=== PATIENT | male | born 1960 | race Caucasian/White ===

== ENCOUNTER 2020-06-16 11:32 | Inpatient (IN) | payer MEDICARE, MEDICAID, SELFPAY ==
[2020-06-16] VITALS (40 sets, daily range): BP systolic 113–148; BP diastolic 59–85; PULSE 89–110; RESP 14–31; TEMP 36.4–37.1; O2SAT 89–98; BMI 39.0
--- NOTE | ~2020-06-16 | XR_ITS ---
EXAMINATION: XR chest 2V DATE: 06/16/2020 12:30 INDICATION: Dyspnea. TECHNIQUE: Frontal and lateral views of the chest were obtained. COMPARISON: None. FINDINGS: The chest demonstrates clear lungs without pneumonia, pleural effusion, or pneumothorax. Th e heart size is normal. There are changes of posterior fusion procedure in thoracolumbar spine. There are chronic vertebral body fractures at thoracolumbar junction. IMPRESSION: 1. No acute cardiopulmonary disease. Reviewed, dictated and finalized at location B. AL INSURANCE COORDINATOR
--- NOTE | ~2020-06-16 | XR_ITS ---
EXAMINATION: BONE SURVEY/METASTATIC SURVEY DATE: 06/17/2020 INDICATION: Right tibial bone lesion TECHNIQUE: A skeletal survey was performed including AP views of the chest, abdomen and pelvis; AP an d lateral/lateral swimmers views of the cervical, thoracic and lumbar spine; lateral view of the skul l, and AP and lateral views of the appendicular skeleton excluding the hands and feet. COMPARISON: 06/16/2020 FINDINGS: Again seen is a mixed lytic and sclerotic lesion at the distal metadiaphyseal region of the right tib ia. No other suspicious bone lesions identified. External splinting of fracture at the proximal right tibial and fibular metaphyses. Chronic T12 compression fracture with posterior spinal fusion with bi lateral vertical tyler and pedicle screw fixation at T11-L1 associated T11-L1 laminectomies. Left above -the-knee amputation. Peripheral IV at the left antecubital fossa. Scattered degenerative skeletal ch anges most prominent at the bilateral wrists and carpi. Lungs are clear. IMPRESSION: 1. Mixed lytic/blastic lesion at the distal left tibial diaphysis which is concerning for malignancy. No other suspicious bone lesions identified. Would consider bone scan for more sensitive evaluation. Reviewed, dictated and finalized at location A. COIN DEALER IMPRESSION: 1. Mixed lytic/blastic lesion at the distal left tibial diaphysis which is conc erning for malignancy. No other suspicious bone lesions identified. Would consi simón bone scan for more sensitive evaluation.
--- NOTE | ~2020-06-16 | XR_ITS ---
EXAMINATION: XR chest 1V portable DATE: 06/19/2020 13:42 INDICATION: Shortness of breath TECHNIQUE: frontal view of the chest was obtained. COMPARISON: Chest radiograph and CT dated 06/16/2020 FINDINGS: The lungs are clear with no focal airspace opacities, pulmonary edema, pleural effusion or pneumothor ax. The cardiomediastinal silhouette is normal. Instrumented posterior spinal fusion at the thoracolu mbar junction. IMPRESSION: 1. No acute cardiopulmonary disease. Reviewed, dictated and finalized at location A. NICAL SPEC
--- NOTE | ~2020-06-16 | CT_ITS ---
EXAMINATION: CT tibia/fibula RT wo con DATE: 06/18/2020 12:59 INDICATION: Distal tibial bone lesion. TECHNIQUE: High resolution computed tomography (CT) of the mid to distal right tibia/fibular was perf ormed without intravenous contrast. Additional sagittal and coronal reconstructions were performed. A utomated exposure control and iterative reconstruction technique were employed. The dose-length produ ct was 528.69 mGy-cm. COMPARISON: Radiographs dated 06/16/2020 and 06/17/2020 FINDINGS: Eccentric sclerotic bone lesion along the lateral side of the metadiaphyseal region of the distal rig ht tibia which measures 3.1 cm proximal to distal and 1.9 x 1.2 cm in maximal orthogonal dimensions. The sclerosis appears to blend into the normal peripheral trabecular pattern underlying the cortex. S imilar to the normal trabecular pattern there are small regions of fat attenuation within multiple sm all lucent space within the region of sclerosis. There is subtle convex bulging of the cortex abuttin g the lesion but without appreciable endosteal scalloping. No periosteal reaction or extraosseous sof t tissue component. There is diffuse soft tissue edema in the visualized calf likely related to the p revious noted acute fractures of the proximal tibia and fibula which are not included within the fiel d of imaging. There are multiple foci of gas within the deep spaces of the anterior and deep posterio r compartments of the calf. No loculated fluid collections to suggest hematoma or abscess. IMPRESSION: 1. 3.1 x 1.9 x 1.2 cm indolent appearing sclerotic lesion with cortical contour suggesting chronic re modeling and without aggressive features such as endosteal scalloping, periosteal reaction or evident soft tissue component. Differential would include most likely either chronic nonossifying fibroma, f ibrous dysplasia or less likely enchondroma. There is a history of prior malignancy would consider me tastatic disease however this would be unlikely to result in the cortical remodeling. Line 2. Soft tissue edema throughout the calf with small amount of gas in the musculature of the anterior and deep posterior compartments which is likely related to the more proximal nonvisualized fractures. In the appropriate clinical setting, differential however would also include necrotizing fasciitis w hich is a clinical diagnosis. Dr. Pearson discussed these findings with Dr. Malloy at 2:20 PM. Reviewed, dictated and finalized at location A. SAW OPERATOR IMPRESSION: 1. 3.1 x 1.9 x 1.2 cm indolent appearing sclerotic lesion with cortical contour suggesting chronic remodeling and without aggressive features such as endostea l scalloping, periosteal reaction or evident soft tissue component. Differentia l would include most likely either chronic nonossifying fibroma, fibrous dyspla darwin or less likely enchondroma. There is a history of prior malignancy would co nsider metastatic disease however this would be unlikely to result in the corti ceasar remodeling. Line 2. Soft tissue edema throughout the calf with small amount of gas in the muscul ature of the anterior and deep posterior compartments which is likely related t o the more proximal nonvisualized fractures. In the appropriate clinical settin g, differential however would also include necrotizing fasciitis which is a cli nical diagnosis. Dr. Pearson discussed these findings with Dr. Malloy at 2:20 PM.
--- NOTE | ~2020-06-16 | US_ITS ---
EXAMINATION: US right upper quadrant DATE: 06/18/2020 16:56 INDICATION: Elevated liver function tests TECHNIQUE: Multiple grayscale and Doppler ultrasound images of the abdomen were obtained. COMPARISON: None available FINDINGS: Bowel gas obscures visualization of the pancreas. The liver is normal with normal echogenic ity and echotexture. No surface nodularity. Normal hepatopetal flow in the main portal vein. The gall bladder is mostly decompressed. The wall bladder wall thickness measures up to 5 mm. No pericholecyst ic fluid or gallstones are identified. The mildly dilated common bile duct measures 8 mm. There was n o sonographic De Paz sign. IMPRESSION: 1. Mildly dilated common bile duct. 2. Apparent gallbladder wall thickening which may be due to gallbladder decompression. Reviewed, dictated and finalized at location A. BOSS IMPRESSION: 1. Mildly dilated common bile duct. 2. Apparent gallbladder wall thickening which may be due to gallbladder decompr ession.
--- NOTE | ~2020-06-16 | XR_ITS ---
EXAMINATION: XR chest 1V portable DATE: 06/23/2020 06:14 INDICATION: Respiratory failure. TECHNIQUE: A single frontal view of the chest was obtained. COMPARISON: Chest single view 06/21/2020, CT abdomen and pelvis 06/20/2020 FINDINGS: There are mild airspace opacities in the lower lung zones and perihilar regions. No pleural effusion or pneumothorax. The heart size is normal. There are changes of posterior fusion procedure in lumbar spine. IMPRESSION: 1. Mild airspace opacities in the lower lung zones and perihilar regions with worsening at right lung base, consistent with atelectasis versus pneumonia. Reviewed, dictated and finalized at location A. ENER AND BLENDER IMPRESSION: 1. Mild airspace opacities in the lower lung zones and perihilar regions with w orsening at right lung base, consistent with atelectasis versus pneumonia.
--- NOTE | ~2020-06-16 | US_ITS ---
EXAMINATION: US venous doppler LE RT DATE: 06/16/2020 13:14 INDICATION: Right lower limb edema. TECHNIQUE: Grayscale ultrasound images without and with compression and Doppler ultrasound images of the right lower extremity veins were obtained. COMPARISON: None. FINDINGS: The visualized portions of right common femoral vein, profunda (deep) femoral vein, femoral vein, pop liteal vein, posterior tibial veins, and greater saphenous vein outflow are patent. IMPRESSION: 1. No deep venous thrombosis. Reviewed, dictated and finalized at location B. ESTRIAL ECOLOGIST
--- NOTE | ~2020-06-16 | CT_ITS ---
EXAMINATION: CT abdomen pelvis wo/w con EXAM DATE: 06/20/2020 15:13 INDICATION: Fever, elevated liver function tests. TECHNIQUE: Spiral CT of the abdomen without contrast followed by both abdomen and pelvis with 100 cc intravenous Omnipaque 350. Both arterial and venous phases obtained. Axial, coronal and sagittal imag es were reviewed. The dose-length product (DLP) for this examination was 3608.56 mGy-cm. The exposu re was tailored according to patient size (auto mA exposure control), and iterative reconstruction (A SIR) was used as additional dose reduction technique. There is no prior study for comparison. FINDINGS: There is fusiform abdominal aortic aneurysm measuring up to 4.1 cm. Mild aneurysmal dilatio n of this extending into the right common iliac artery at 2.1 cm. There is splenomegaly, with the spleen measuring 20 cm in craniocaudal dimension. There is nodular li mike contour consistent with cirrhosis. Nonspecific inflammation in the mesentery and along the inferi or margin of the liver. There is trace perihepatic ascites. Gallbladder is unremarkable. No biliary obstruction. Portal and splenic veins are patent. Kidneys enhance symmetrically. There is no hydronephrosis. The re is no nephrolithiasis or hydronephrosis. The prostate is unremarkable. There is a Allen catheter . There is both gas and a stone within the bladder. There is evidence of diffuse bladder wall thicken ing, acute or chronic cystitis. Correlation could be made with urinalysis. There is no retroperitone al or pelvic lymphadenopathy. Small left inguinal fat-containing hernia. The appendix is normal. The stomach and small bowel are unremarkable. There is expected amount of c olonic stool. No free intraperitoneal gas. The heart is normal in size. There are no pericardial or pleural effusions. The lung bases are unremarkable. There are no osteoblastic or osteolytic les ions identified. There is thoracolumbar fusion hardware. IMPRESSION: 1. Cirrhosis, portal hypertension and splenomegaly. 2. Trace perihepatic ascites and some nonspecific right sided abdominal, mesenteric inflammation. 3. Fusiform abdominal aortic 4.1 cm aneurysm. 4. Allen catheter, bladder stone, gas within the bladder. Correlate with urinalysis. 5. Small left inguinal fat-containing hernia. Reviewed, dictated and finalized at location A. ING CHECKER IMPRESSION: 1. Cirrhosis, portal hypertension and splenomegaly. 2. Trace perihepatic ascites and some nonspecific right sided abdominal, mesen teric inflammation. 3. Fusiform abdominal aortic 4.1 cm aneurysm. 4. Allen catheter, bladder stone, gas within the bladder. Correlate with urina lysis. 5. Small left inguinal fat-containing hernia.
--- NOTE | ~2020-06-16 | XR_ITS ---
EXAMINATION: XR chest 1V portable DATE: 06/25/2020 06:29 INDICATION: Volume overload. TECHNIQUE: A single frontal view of the chest was obtained. COMPARISON: Chest single view 06/23/2020, CT abdomen and pelvis 06/20/2020, chest CT 06/16/2020 FINDINGS: Sensitivity is decreased by obesity. There is mild atelectasis in the right mid and lower l tarah zones and left lower lung zone. No pleural effusion or pneumothorax. The heart size is normal. Th ere are changes of posterior fusion procedure in lumbar spine. IMPRESSION: 1. Mild atelectasis in right mid and lower lung zones and left lower lung zone. Reviewed, dictated and finalized at location A. ISHING MACHINE OPERATOR
--- NOTE | ~2020-06-16 | XR_ITS ---
EXAMINATION: XR hip BI 2V w AP pelvis DATE: 06/16/2020 12:50 INDICATION: Hip pain. TECHNIQUE: An anteroposterior view of the pelvis and 2 views of each hip were obtained. COMPARISON: None. FINDINGS: Bone alignment is normal. No fracture. There is mild osteoarthritis of the hips. IMPRESSION: 1. Mild osteoarthritis of the hips. Reviewed, dictated and finalized at location B. COMBER
--- NOTE | ~2020-06-16 | CT_ITS ---
EXAMINATION: CTA chest PE protocol DATE: 06/16/2020 14:57 INDICATION: Dyspnea. Long bone fracture. TECHNIQUE: Computed tomography angiography (CTA) of the chest was performed with 200 mL Omnipaque-350 intravenous contrast timed to evaluate the pulmonary arteries. Coronal maximum intensity projection 3D-reconstructions were created by the technologist. Automated exposure control and iterative reconst ruction technique were employed. Exam dose: 1993.22 mGy-cm total exam DLP. COMPARISON: 06/16/2020 AP and lateral chest FINDINGS: Despite reinjection, there is limited contrast enhancement of the pulmonary arteries. No ce ntral pulmonary embolism is noted at the peripheral pulmonary arteries are not optimally evaluated. No thoracic aortic aneurysm or dissection. Coronary artery calcification. No pericardial or pleural effusion. No hilar or mediastinal mass lesion or lymphadenopathy. There is mild atelectasis in the dependent posterior segment of the right upper lobe and lingula. No pulmonary consolidation or pulmonary mass lesion is noted otherwise. Plate and pedicle screws in the upper lumbar region, with considerable streak artifact. Small sliding hiatal hernia. IMPRESSION: Suboptimal contrast enhancement of the pulmonary arteries, limiting evaluation. No large central pulmonary embolus is identified. Reviewed, dictated and finalized at Location A. Reviewed, dictated and finalized at location A. DDED FILLER CIGAR MAKER MACHINE IMPRESSION: Suboptimal contrast enhancement of the pulmonary arteries, limitin g evaluation. No large central pulmonary embolus is identified.
--- NOTE | ~2020-06-16 | XR_ITS ---
EXAMINATION: XR knee RT 3V DATE: 06/28/2020 08:36 INDICATION: Tibia fracture follow-up. TECHNIQUE: 3 views of right knee were obtained. COMPARISON: Right knee radiographs 06/16/2020, CT 06/27/20 FINDINGS: There is a comminuted, predominantly oblique fracture of tibial metaphysis. The main distal fracture fragment demonstrates 11 mm lateral displacement, impaction, and 3 mm anterior displacement . There is an oblique fracture of fibular neck. The distal fracture fragment demonstrates 14 mm media l displacement, impaction, and 11 degrees medial angulation. There is mild tricompartmental osteoarth ritis of right knee. There is a moderate-sized knee joint effusion. Again seen are foci of gas in the musculature of the jones. IMPRESSION: 1. Fractures of proximal tibial metaphysis and fibular neck. 2. Mild right knee osteoarthritis. 3. Moderate-sized right knee joint effusion. 4. Foci of soft tissue gas involving the musculature of the jones. Correlate clinically for necrotizin g fasciitis. Reviewed, dictated and finalized at location A. TRICAL APPLIANCE PREPARER IMPRESSION: 1. Fractures of proximal tibial metaphysis and fibular neck. 2. Mild right knee osteoarthritis. 3. Moderate-sized right knee joint effusion. 4. Foci of soft tissue gas involving the musculature of the jones. Correlate cli nically for necrotizing fasciitis.
--- NOTE | ~2020-06-16 | CT_ITS ---
EXAMINATION: CTA LE RT DATE: 06/27/2020 13:39 INDICATION: Arterial occlusive disease. TECHNIQUE: Computed tomographic angiography (CTA) of right lower extremity was performed with 150 mL Omnipaque-350 intravenous contrast. Automated exposure control and iterative reconstruction technique were employed. The dose-length product was 1661.13 mGy-cm. Maximum intensity projection 3D-reconstru ctions of the arteries were created by the technologist on a separate workstation. COMPARISON: CT abdomen and pelvis 06/20/2020 FINDINGS: ABDOMINAL AORTA AND ITS BRANCHES: There is a 4.0 cm fusiform aneurysm of infrarenal aorta. There is mild stenosis of celiac axis and gautam perior mesenteric artery. There is no significant stenosis of the renal arteries or inferior mesenter ic artery. PELVIC VASCULATURE: There is mild stenosis of right common and external and internal iliac arteries. There is mild stenos is of left common and internal iliac arteries. There is total occlusion of left internal iliac artery . RIGHT LOWER EXTREMITY VASCULATURE: There is moderate stenosis of right common femoral artery. There is no significant stenosis of the pr ofunda femoral artery. There is moderate stenosis of proximal and mid superficial femoral artery. The re is total occlusion of distal superficial femoral artery with reconstitution of flow in above-knee popliteal artery. There is no significant stenosis of below-knee popliteal artery or tibioperoneal tr unk. There is mild stenosis of the posterior tibial artery and peroneal artery. There is total occlus ion of proximal anterior tibial artery with reconstitution. LEFT LOWER EXTREMITY VASCULATURE: There is moderate stenosis of left common femoral artery. There are areas of moderate and severe sten osis of left superficial femoral artery. ADDITIONAL FINDINGS: There are bilateral pleural effusions. The liver demonstrates surface nodularity, consistent with cir rhosis. There is severe splenomegaly. The gallbladder is normal in size. Normal wall thickening is se en, likely secondary to chronic liver disease. There is a paraumbilical portacaval shunt. The pancrea s, adrenal glands, and right kidney are normal. There is a 9 mm cyst in left kidney. There are no dil ated loops of bowel. There is a 13 mm stone in the bladder. There is a Allen catheter in the bladder. There is a left inguinal hernia containing fat. There are no dilated loops of bowel. The appendix is normal. There is a moderate volume of ascites. Body wall edema is noted. There are changes of jewelry consultant ior fusion procedure in thoracolumbar spine. There is an oblique fracture of proximal tibial metaphys is. The distal fracture fragment demonstrates impaction and anteromedial displacement. There is an ob lique fracture of fibular neck. The distal fracture fragment demonstrates impaction and medial displa cement and posterior angulation. Again seen is a sclerotic lesion in distal tibial metadiaphysis, lik keely benign. There is edema of right lower limb. There is gas in the right jones musculature near the f racture. There is a hematoma at the myotendinous junction of the right gracilis muscle, consistent wi th partial tear (grade 2 strain). There is a moderate-sized right knee joint effusion. There is mild right knee osteoarthritis. IMPRESSION: 1. 4.0 cm fusiform aneurysm of infrarenal aorta. 2. Moderate stenosis of right common femoral artery. 3. Moderate stenosis of proximal and mid right superficial femoral artery. Total occlusion of distal right superficial femoral artery with reconstitution in above-knee popliteal artery. 4. Total occlusion of proximal right anterior tibial artery with reconstitution. 5. Moderate stenosis of left common femoral artery. Moderate and severe stenosis of left superficial femoral artery. 6. Cirrhosis of the liver with portal venous hypertension. 7. Moderate volume of ascites.
--- NOTE | ~2020-06-16 | XR_ITS ---
EXAMINATION: 1. XR knee RT min 4V 2. XR tibia fibula RT 2V DATE: 06/16/2020 12:50 INDICATION: Right knee pain. TECHNIQUE: 4 views of right knee and 2 views of right tibia and fibula were obtained. COMPARISON: None. FINDINGS: RIGHT KNEE: There is a comminuted, predominantly oblique fracture of proximal tibial metaphysis. The distal fracture fragment demonstrates 15 mm medial displacement and impaction. There is an oblique fr acture of neck of proximal fibula. The distal fracture fragment demonstrates 12 mm medial displacemen t and impaction. There is mild tricompartmental osteoarthritis of right knee. There is a moderate-siz ed knee joint effusion. RIGHT TIBIA-FIBULA: Again seen are fractures of proximal tibial metaphysis and fibular neck. There is a 3.4 cm sclerotic lesion in medial distal tibial metadiaphysis with outward bowing of the cortex. IMPRESSION: 1. Fractures of proximal tibial metaphysis and fibular neck. 2. 3.4 cm sclerotic lesion in distal tibial metadiaphysis, most likely a benign lesion such as a heal ed fracture or healed nonossifying fibroma. Metastatic disease cannot be excluded. 3. Mildly right knee osteoarthritis. 4. Moderate-sized knee joint effusion. Reviewed, dictated and finalized at location B. ORKER IMPRESSION: 1. Fractures of proximal tibial metaphysis and fibular neck. 2. 3.4 cm sclerotic lesion in distal tibial metadiaphysis, most likely a benign lesion such as a healed fracture or healed nonossifying fibroma. Metastatic di sease cannot be excluded. 3. Mildly right knee osteoarthritis. 4. Moderate-sized knee joint effusion.
--- NOTE | ~2020-06-16 | US_ITS ---
EXAMINATION: US arterial ankle brachial ind DATE: 06/17/2020 11:45 INDICATION: Peripheral arterial occlusive disease. Bilateral lower limb swelling. TECHNIQUE: Segmental pressures and plethysmographic and Doppler waveforms of the brachial and lower e xtremity arteries were obtained. COMPARISON: None. FINDINGS: Right and left brachial artery pressures of 123 mm Hg and 117 mm Hg, respectively, are concordant (no rmal difference <= 30 mmHg). The right ankle-brachial index (MOJGAN) is 0.50 (normal >= 0.9-1.0). The right dorsalis pedis artery is occluded with no dopplerable waveform. The right great toe-brachial index (TBI) is 0.41 (normal >= 0. 65). Left MOJGAN and TBI measurements unable to be obtained due to a left [id number] amputation. IMPRESSION: 1. Arterial occlusive disease to the right lower limb with moderate to severely decreased right MOJGAN b ased upon the right posterior tibial artery with occlusion/thrombosis of the right dorsalis pedis art omar. Reviewed, dictated and finalized at location A. CIATE DIRECTOR DATA & ANALYTICS IMPRESSION: 1. Arterial occlusive disease to the right lower limb with moderate to severely decreased right MOJGAN based upon the right posterior tibial artery with occlusio n/thrombosis of the right dorsalis pedis artery.
--- NOTE | ~2020-06-16 | XR_ITS ---
EXAMINATION: XR chest 1V portable DATE: 06/21/2020 13:09 INDICATION: Cough and hypoxia TECHNIQUE: frontal view of the chest was obtained. COMPARISON: Chest radiograph dated 06/19/2020 and chest radiograph and CT dated 06/16/2020 FINDINGS: Subtle oblique band of discoid atelectasis in the right midlung zone which on CT as in the upper lobe paralleling the major fissure. New opacities in the medial aspect of the bilateral lower lung zones. No pulmonary edema, pleural effusion or pneumothorax. The cardiomediastinal silhouette is within nor mal limits for AP technique. Partially visualized bilateral plate and pedicle screw fixation for lumb ar posterior spinal fusion. IMPRESSION: 1. New mild opacities at the medial aspect of the bilateral lung bases which could represent atelecta sis and/or pneumonia. 2. Unchanged discoid atelectasis/scarring in the right upper lobe. Reviewed, dictated and finalized at location B. UNTING TECHNICIAN IMPRESSION: 1. New mild opacities at the medial aspect of the bilateral lung bases which co uld represent atelectasis and/or pneumonia. 2. Unchanged discoid atelectasis/scarring in the right upper lobe.
--- NOTE | 2020-06-16 11:47 | ECG_ITS ---
Measurements Intervals [place] Rate: 96 P: 52 UT: 136 QRS: -54 QRSD: 113 T: -38 QT: 396 QTc: 501 Interpretive Statements SINUS RHYTHM VENTRICULAR PREMATURE COMPLEX LOW QRS VOLTAGE IN PRECORDIAL LEADS INCOMPLETE RIGHT BUNDLE BRANCH BLOCK LEFT ANTERIOR FASCICULAR BLOCK BORDERLINE ST-T WAVE ABNORMALITY- DIFFUSE LEADS BASELINE ARTIFACT- I, II, III, AVR ABNORMAL ECG Electronically Signed On 06-16-2020 11:56:40 INCOME TAX INVESTIGATOR by Fady Joseph D.O.
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
[2020-06-16 12:13] LABS: Basophils Percent Auto 0.4 % (0.2-1.2); Eosinophils Absolute Auto 0.1 K/mm3 (0-0.3); Eosinophils Percent Auto 1.1 % (0-4.4); Hematocrit 33.9 % (42.0-52.0); Hemoglobin 10.5 g/dL (14.0-18.0); Immature Granulocyte Absolute 0.02 K/mm3 (0.00-0.031); Immature Granulocyte Percent A 0.4 % (0-0.5); Immature Platelet Fraction Pct 5.6 % (0.9-11.2); Lymphocytes Absolute Auto 0.43 K/mm3 (0.9-3.2); Lymphocytes Percent Auto 9.7 % (18.3-44.2); Mean Corpuscular Hemoglobin 28.9 pg (26-34); Mean Corpuscular Volume 93.4 fl (80-100); Monocytes Absolute Auto 0.5 K/mm3 (0.1-0.6); Monocytes Percent Auto 10.6 % (2.6-8.5); Neutrophils Absolute Auto 3.5 K/mm3 (1.3-6.7); Neutrophils Percent Auto 77.8 % (45.5-73.1); Platelet Count Result 81 k/mm3 (150-375); Red Blood Count 3.63 M/mm3 (4.6-6.20); Red Cell Distribution Width 15.4 % (11.5-14.5); White Blood Count 4.5 K/mm3 (4.5-10.0)
[2020-06-16 12:23] LABS: Anion Gap 5 mmol/L (8-16); Blood Urea Nitrogen 8 mg/dL (9-20); Calcium 8.2 mg/dL (8.4-10.2); Carbon Dioxide 30 mmol/L (22-30); Chloride 99 mmol/L (98-107); Estimated CRCL calculation 155 ml/min; Estimated Glomerular Filt Rate > 60; Glucose 168 mg/dL (75-110); Potassium 4.1 mmol/L (3.4-5.0); Sodium 134 mmol/L (137-145)
[2020-06-16 12:41] LABS: NT Pro B Type Natriuretic Pept 288 PG/ML (5-100); Troponin I 0.755 ng/mL (0.000-0.034)
[2020-06-16 13:08] LABS: CRP 2.8 mg/dL (<1.0)
[2020-06-16 13:14] LABS: NT Pro B Type Natriuretic Pept 278 PG/ML (5-100)
[2020-06-16] MEDS: ALBUTEROL SULFATE NEB 2.5 MG/0.5 ML INH 5 MG INHALATION (13:30)
[2020-06-16] MEDS: IPRATROPIUM BR 0.02% INH SOLN 0.5 MG/2.5 ML VIAL 1 MG INHALATION (13:30)
--- NOTE | 2020-06-16 14:33 | PC.NURSE ---
Asked pt for urine sample, pt stated he was unable to go at this time
[2020-06-16 16:48] LABS: Add Urine Microscopic? YES; Appearance Urine Clear (Clear); Bilirubin Urine Negative (Negative); Blood Urine Negative (Negative); Color Urine Yellow (Yellow); Glucose Urine UA Negative (Negative); Ketones Urine Negative (Negative); Leukocyte Esterase Ur 1+ LEU/UL (Negative); Nitrate Urine Negative (Negative); Protein Urine 1+ mg/dL (Negative); Squamous Epithelial Cell Urine Occasional /hpf (Few); WBC Urine 31-50 /hpf
[2020-06-16 16:55] LABS: Specific Grav Ur > 1.060 (1.001-1.035)
--- NOTE | 2020-06-16 17:04 | PCCCNOTE ---
Spoke with pt about discharge plan. Pt states he lives at home alone and takes care of all his ADL's and housekeeping himself. If he has surgery and gets a long leg cast he states he will need to go somewhere for rehab. Explained he is currently going to be in observation. Gave pt list of SNF's in area. He has Medicaid 2nd and if does not have a 3 night stay he can go Medicaid. Pt drives self to appointments, uses transfer board and does have wheelchair but not with elevating legs.
--- NOTE | 2020-06-16 18:25 | PC.NURSE ---
Meal tray ordered for patient
[2020-06-16 19:04] LABS: Troponin I 0.975 ng/mL (0.000-0.034)
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
--- NOTE | 2020-06-16 22:03 | ADMGEN ---
This patient, Jose Rojas, was admitted to IMU Room 206-02. Patient/family oriented to hospital policies and general routines including ID bracelet, bed and alarms, visiting hours, pain management, procedures, bathroom and other care routines, personal items, smoking policy, room service/diet, and visiting hours. Information on how to activate the Rapid Response Team has been discussed. Patient/Family are encouraged to report perceived risks to care and to ask questions if they do not understand what they are told or what they should do.
[2020-06-16 22:11] LABS: Troponin I 0.846 ng/mL (0.000-0.034)
--- NOTE | 2020-06-16 22:11 | PC.NURSE ---
Family called and notified of patients transfer to floor
[2020-06-17] VITALS (21 sets, daily range): BP systolic 118–136; BP diastolic 40–60; PULSE 80–115; RESP 18–22; TEMP 36.3–37.2; O2SAT 89–95
--- NOTE | 2020-06-17 | ECHO_ITS ---
Patient Info Name: Jose Rojas Age: 59 years : 1960 Gender: Male Ht: 67 in Wt: 242 lbs BSA: 2.33 m2 HR: 112 bpm BP: 128 / 60 mmHg Technical Quality: Poor Exam Date: 06/17/2020 2:23 PM Exam Location: [facility] Pul[facility] Patient Status: Inpatient Admit Date: 06/17/2020 Staff Ordering Physician: Fang Webb MD Cardroom Drawing Runner: Hilary Baer RDCS Attending Provider: Maynor Tello MD Referring Physician: Jon PEREZ; Exam Type: CA echo dop color flow w con Study Info Indications - elevated trop Complete two-dimensional, color flow and Doppler transthoracic echocardiogram is performed with contrast to opacify the left ventricle and to improve the deliniation of the left ventricle endocardial borders. Contrast/Agitated Saline Contrast/Ag. Saline: Definity Amount: 2.00 ml Administered By: Gerardo Cannon, RN IV Access Condition: patent with no signs of infiltration Reason for Poor Study: poor echocardiographic windows Summary 1. Technically suboptimal study due to poor sonographic images. 2. Left ventricular chamber dimension is mildly enlarged. 3. Definity contrast administered improved wall motion interpretation. 4. Left ventricular systolic function is normal, estimated at 55-60%. 5. The left ventricular diastolic function is grade II diastolic dysfunction. 6. E/e' 12 is mildly elevated. Left Ventricle Definity contrast administered improved wall motion interpretation. Technically suboptimal study due to poor sonographic images. E/e' 12 is mildly elevated. Left ventricular chamber dimension is mildly enlarged. Left ventricular systolic function is normal, estimated at 55-60%. The left ventricular diastolic function is grade II diastolic dysfunction. Right Ventricle Right ventricular chamber dimension is not well visualized. Left Atria Left atrial chamber dimension is normal. Right Atria Right atrial chamber dimension is not well visualized. Aortic Valve There is no aortic valve stenosis based on valve area and gradients. Cannot determine number of aortic valve leaflets. The aortic valve is not well visualized. There is no aortic valve regurgitation. Pulmonic Valve The pulmonic valve is not well visualized. Mitral Valve There is no mitral valve stenosis. There is no mitral valve regurgitation. Tricuspid Valve The tricuspid valve leaflets are not well visualized. Pericardium/Pleural There is no pericardial effusion. Inferior Vena Cava Inferior vena cava is not well visualized. Aorta The aortic root size at the sinus of Valsalva is not well visualized. Left Ventricular Outflow Tract Name Value Normal LVOT 2D LVOT Diameter 2.04 cm LVOT Doppler LVOT Peak Gradient 8 mmHg LVOT Mean Gradient 5 mmHg LVOT VTI 23.99 cm LVOT VTI/AV VTI Ratio 0.92 LVOT Stroke Volume 78.48 ml LVOT CO 7.93 l/min LVOT CI
--- NOTE | 2020-06-17 05:16 | PCRCNOTE ---
Window of time for administration has passed. See next scheduled administration.
--- NOTE | 2020-06-17 06:52 | PCRCNOTE ---
Window of time for administration has passed. See next scheduled administration.
[2020-06-17] MEDS: NICOTINE (*PBKC) 14 MG PATCH 1 PATCH TRANSDERM (08:38)
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
--- NOTE | 2020-06-17 09:22 | PCOTNOTE ---
OT evaluation held at this time, will follow for ortho consult and recommendation.
[2020-06-17] MEDS: ALBUTEROL SULFATE NEB 2.5 MG/0.5 ML INH 5 MG INHALATION ×3 (10:34→20:22)
[2020-06-17] MEDS: IPRATROPIUM BR 0.02% INH SOLN 0.5 MG/2.5 ML VIAL INHALATION ×3 (10:34→20:22)
--- NOTE | 2020-06-17 10:52 | PCOTNOTE ---
attempted OT evaluation. Patient out for testing. will continue to attempt.
--- NOTE | 2020-06-17 10:55 | PCPTNOTE ---
Attempted PT evaluation, patient in ultrasound this AM, will attempt this afternoon.
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
[2020-06-17 12:34] LABS: Glucose Point of Care 130 (65-105)
[2020-06-17 17:29] LABS: Glucose Point of Care 125 (65-105)
[2020-06-17 19:11] LABS: Influenza Control Positive
[2020-06-17 20:56] LABS: Glucose Point of Care 168 (65-105)
[2020-06-17] MEDS: BISACODYL 10 MG SUPPOSITORY RECTAL (21:06)
[2020-06-17] MEDS: CYCLOBENZAPRINE HCL 5 MG TABLET PO (22:14)
[2020-06-17] MEDS: ACETAMINOPHEN 325 MG TABLET 650 MG PO (22:15)
[2020-06-18] VITALS (24 sets, daily range): BP systolic 101–134; BP diastolic 35–93; PULSE 99–113; RESP 18–22; TEMP 36.3–37.2; O2SAT 91–97
[2020-06-18] MEDS: ALBUTEROL SULFATE NEB 2.5 MG/0.5 ML INH 5 MG INHALATION ×4 (03:40→21:52)
[2020-06-18] MEDS: IPRATROPIUM BR 0.02% INH SOLN 0.5 MG/2.5 ML VIAL INHALATION ×4 (03:40→21:53)
[2020-06-18 05:04] LABS: Hemoglobin A1C 5.6 % (<5.7)
[2020-06-18 05:42] LABS: Prostate Specific Antigen 0.3 ng/mL (< OR = 4.0)
[2020-06-18 06:17] LABS: Folic Acid 7.7 ng/mL (2.76->20)
[2020-06-18 08:22] LABS: Glucose Point of Care 153 (65-105)
[2020-06-18] MEDS: NICOTINE (*PBKC) 14 MG PATCH 1 PATCH TRANSDERM (08:46)
[2020-06-18 09:11] LABS: Basophils Percent Auto 0.4 % (0.2-1.2); Eosinophils Absolute Auto 0.1 K/mm3 (0-0.3); Eosinophils Percent Auto 0.8 % (0-4.4); Hematocrit 32.4 % (42.0-52.0); Hemoglobin 10.1 g/dL (14.0-18.0); Immature Granulocyte Absolute 0.06 K/mm3 (0.00-0.031); Immature Granulocyte Percent A 0.8 % (0-0.5); Immature Platelet Fraction Pct 6.9 % (0.9-11.2); Lymphocytes Absolute Auto 0.55 K/mm3 (0.9-3.2); Lymphocytes Percent Auto 7.2 % (18.3-44.2); Mean Corpuscular HGB Conc 31.2 g/dl (32-36); Mean Corpuscular Hemoglobin 29.4 pg (26-34); Mean Corpuscular Volume 94.5 fl (80-100); Mean Platelet Volume 11.2 fl (7.4-10.4); Monocytes Absolute Auto 0.8 K/mm3 (0.1-0.6); Monocytes Percent Auto 10.7 % (2.6-8.5); Neutrophils Absolute Auto 6.2 K/mm3 (1.3-6.7); Neutrophils Percent Auto 80.1 % (45.5-73.1); Platelet Count Result 86 k/mm3 (150-375); Red Blood Count 3.43 M/mm3 (4.6-6.20); White Blood Count 7.7 K/mm3 (4.5-10.0)
[2020-06-18 09:25] LABS: Alanine Aminotransferase 65 U/L (4-50); Albumin Level 3.1 g/dL (3.5-5.1); Alkaline Phosphatase 135 U/L (38-126); Anion Gap 0 mmol/L (8-16); Aspartate Amino Transferase 267 U/L (17-59); Bilirubin,Total 3.5 mg/dL (0.2-1.3); Blood Urea Nitrogen 10 mg/dL (9-20); Calcium 8.3 mg/dL (8.4-10.2); Carbon Dioxide 37 mmol/L (22-30); Chloride 98 mmol/L (98-107); Estimated CRCL calculation 134 ml/min; Estimated Glomerular Filt Rate > 60; Glucose 142 mg/dL (75-110); Potassium 4.4 mmol/L (3.4-5.0); Sodium 135 mmol/L (137-145)
--- NOTE | 2020-06-18 09:41 | PM.PNORT ---
Progress Note: A&P Assessment and Plan (1) Fracture, tibia and fibula, proximal: Qualifiers: Encounter type: subsequent encounter Fracture type: closed Laterality: right Fracture healing: with routine healing Qualified Code(s): S82.101D - Unspecified fracture of upper end of right tibia, subsequent encounter for closed fracture with routine healing; S82.831D - Other fracture of upper and lower end of right fibula, subsequent encounter for closed fracture with routine healing Code(s): S82.109A - Unspecified fracture of upper end of unspecified tibia, initial encounter for closed fracture; S82.839A - Other fracture of upper and lower end of unspecified fibula, initial encounter for closed fracture Status: Acute Assessment and Plan: Continue knee immobilizer. Swelling slightly improved. Patient appears to be comfortable. Continue to monitor. If loss of alignment may require surgical treatment however high risk of complication given medical comorbidities including arterial disease. (2) Peripheral arterial disease: Code(s): I73.9 - Peripheral vascular disease, unspecified Status: Acute Assessment and Plan: Moderate to severe decreased arterial blood flow right leg on MOJGAN and TBI. Unable to palpate pulses. Unaware if patient is followed by vascular surgery. (3) Bone lesion: Code(s): M89.9 - Disorder of bone, unspecified Status: Acute Assessment and Plan: Distal tibial metadiaphyseal lesion. Questionable benign versus carcinogenic. will obtain CT scan to better evaluate. Subjective Subjective Date/Time Seen: 06/18/20 09:00 Patient resting comfortably. No new complaints. Exam Const: General: healthy appearing; No in distress or confusion Orientation/consciousness: oriented to person, oriented to place, oriented to time and No confusion HENMT: Head: normal to inspection, normocephalic and atraumatic Eyes: Conjunctivae: conjunctivae normal Sclera: sclerae normal Neck: Neck: supple and nontender Resp: Effort & Inspection: normal respiratory effort and no audible wheezes Cardio: Rate: regular rate Rhythm: regular rhythm Skin: General skin exam: no rashes or lesions noted Neuro: General: oriented to person, oriented to place, oriented to time and No confusion Extrem: Right upper extremity: normal to inspection Left upper extremity: normal to inspection Right lower extremity: edema Details: pitting and 3+, hip/thigh Details: no tenderness, knee Details: swelling Location: of the proximal fibula (Moderate) and of the proximal tibia Details: along the midline (Moderate) and abnormal ROM Details: with range as follows (No active motion knee, ankle, foot or toes); no tenderness and foot Details: edema Location: of the dorsal foot (Moderate), vascular exam Details: abnormal capillary refill Location: of all toes; dorsalis pedis pulse absent and posterior tibial pulse absent and motor-sensory exam Details: light-touch abnormal Location: in all toes; no tenderness Left lower extremity: hip/thigh (Above knee amputation with well-healed incision. No erythema. Muscle soft) Details: no tenderness Psych: Affect: normal affect Objective Data Vital Signs Vital Signs: Vital Signs - 24 hr 06/17/20 10:00 06/17/20 10:30 06/17/20 10:40 Temperature Pulse Rate 108 H 88 89 Respiratory Rate 18 18 Blood Pressure Pulse Oximetry 06/17/20 10:41 06/17/20 12:00 06/17/20 14:00 Temperature 98.5 F Pulse Rate 103 H 114 H Respiratory Rate 18 Blood Pressure 118/42 L Pulse Oximetry 95 93 06/17/20 14:07 06/17/20 14:15 06/17/20 16:00 Temperature 98.3 F Pulse Rate 112 H 105 H 115 H Respiratory Rate 18 18 18 Blood Pressure 136/49 L Pulse Oximetry 94 06/17/20 18:45 06/17/20 19:34 06/17/20 20:00 Temperature 98.9 F Pulse Rate 112 H 114 H 107 H Respiratory Rate 20 Blood Pressure 126/40 L Pulse Oximetry 92 92 06/17/20 20:22
[2020-06-18 10:39] LABS: Iron 35 ug/dL (49-181)
[2020-06-18 10:48] LABS: Percent Iron Saturation 9 % (20-50)
[2020-06-18 12:10] LABS: Glucose Point of Care 154 (65-105)
[2020-06-18] MEDS: ACETAMINOPHEN 325 MG TABLET 650 MG PO ×2 (13:06→21:11)
[2020-06-18] MEDS: CYCLOBENZAPRINE HCL 5 MG TABLET PO ×2 (13:06→21:11)
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
[2020-06-18 15:23] LABS: Bilirubin Indirect 1.2 mg/dL (0-1.1)
[2020-06-18 15:23] LABS: Ammonia 101 umol/L (9-30)
[2020-06-18 15:44] LABS: Creatine Kinase 6114 U/L (55-170)
[2020-06-18 16:08] LABS: Hepatitis B Surface Antigen Negative (Negative)
[2020-06-18 16:14] LABS: HAV RESULT Negative (Negative); Hepatitis B Core IgM Result Negative (Negative)
[2020-06-18 16:28] LABS: Hepatitis B Surface Anti Res Negative; Hepatitis C Virus Antibody Negative (Negative)
[2020-06-18 17:10] LABS: Glucose Point of Care 210 (65-105)
[2020-06-18] MEDS: FUROSEMIDE INJ 40 MG/4 ML VIAL 20 MG IV PUSH (17:28)
[2020-06-18] MEDS: SODIUM CHLORIDE 0.9% IV 1,000 ML 100 ML IV CONT (17:29)
[2020-06-18] MEDS: ASPIRIN 81 MG CHEWABLE TABLET PO (17:29)
[2020-06-18] MEDS: LACTULOSE 20 GM/30 ML UDC PO (17:29)
[2020-06-18] MEDS: INSULIN ASPART (*BKC) 100 UNITS/ML SUB-Q (17:29)
[2020-06-18] MEDS: FERROUS SULFATE 324 MG TABLET PO (17:29)
--- NOTE | 2020-06-18 21:24 | PC.NURSE ---
This patient, Jose Rojas, was transferred to [[id number] ] on 06/18/20 at 2124. Personal belongings sent with patient. Report given to [NEDA PATEL. ]. Appropriate documentation sent with patient.
--- NOTE | 2020-06-18 22:13 | PC.NURSE ---
This patient, Jose Rojas, was received from [ IMU] on 06/18/20 at 2133. Patient/family oriented to unit policies and routines
[2020-06-18 22:39] LABS: Glucose Point of Care 118 (65-105)
[2020-06-18] MEDS: PANTOPRAZOLE 40 MG TABLET PO (22:47)
[2020-06-18] MEDS: CEPHALEXIN 250 MG CAPSULE PO (22:57)
[2020-06-18 23:30] LABS: IFOB Positive Control Positive; Immunochemical Fecal Occult Bl Negative (N)
[2020-06-19] VITALS (20 sets, daily range): BP systolic 112–149; BP diastolic 50–60; PULSE 95–112; RESP 18–26; TEMP 36.2–38.4; O2SAT 86–95
[2020-06-19 02:09] LABS: Glucose Point of Care 257 (65-105)
[2020-06-19] MEDS: SODIUM CHLORIDE 0.9% IV 1,000 ML 100 ML IV CONT ×2 (02:15→12:40)
[2020-06-19] MEDS: ACETAMINOPHEN 325 MG TABLET 650 MG PO ×2 (02:26→17:34)
--- NOTE | 2020-06-19 03:53 | PCRCNOTE ---
0200 tx was omitted due to apnea study in progress
[2020-06-19] MEDS: CEPHALEXIN 250 MG CAPSULE PO ×3 (05:49→17:16)
[2020-06-19] MEDS: CYCLOBENZAPRINE HCL 5 MG TABLET PO ×2 (05:49→17:34)
[2020-06-19 06:34] LABS: Hematocrit 29.1 % (42.0-52.0); Hemoglobin 9.2 g/dL (14.0-18.0); Immature Platelet Fraction Pct 6.2 % (0.9-11.2); Mean Corpuscular HGB Conc 31.6 g/dl (32-36); Mean Corpuscular Hemoglobin 28.8 pg (26-34); Mean Corpuscular Volume 91.2 fl (80-100); Mean Platelet Volume 11.7 fl (7.4-10.4); Platelet Count Result 80 k/mm3 (150-375); Red Blood Count 3.19 M/mm3 (4.6-6.20); Red Cell Distribution Width 15.9 % (11.5-14.5); White Blood Count 6.8 K/mm3 (4.5-10.0)
[2020-06-19 07:04] LABS: Alanine Aminotransferase 64 U/L (4-50); Albumin Level 2.8 g/dL (3.5-5.1); Alkaline Phosphatase 125 U/L (38-126); Anion Gap 2 mmol/L (8-16); Aspartate Amino Transferase 222 U/L (17-59); Bilirubin,Total 2.5 mg/dL (0.2-1.3); Blood Urea Nitrogen 10 mg/dL (9-20); Calcium 7.7 mg/dL (8.4-10.2); Carbon Dioxide 32 mmol/L (22-30); Chloride 99 mmol/L (98-107); Cholesterol 110 mg/dL (0-200); Estimated CRCL calculation 134 ml/min; Estimated Glomerular Filt Rate > 60; Glucose 103 mg/dL (75-110); HDL Direct 31 mg/dL; Potassium 3.6 mmol/L (3.4-5.0); Sodium 133 mmol/L (137-145); Triglycerides 95 mg/dL (<150)
[2020-06-19 07:16] LABS: LDL Cholesterol Direct 49 mg/dL
[2020-06-19 07:36] LABS: Creatine Kinase 4703 U/L (55-170)
--- NOTE | 2020-06-19 08:16 | PM.PNORT ---
Progress Note: A&P Assessment and Plan (1) Fracture, tibia and fibula, proximal: Qualifiers: Encounter type: subsequent encounter Fracture healing: with routine healing Fracture type: closed Laterality: right Qualified Code(s): S82.101D - Unspecified fracture of upper end of right tibia, subsequent encounter for closed fracture with routine healing; S82.831D - Other fracture of upper and lower end of right fibula, subsequent encounter for closed fracture with routine healing Code(s): S82.109A - Unspecified fracture of upper end of unspecified tibia, initial encounter for closed fracture; S82.839A - Other fracture of upper and lower end of unspecified fibula, initial encounter for closed fracture Status: Acute Assessment and Plan: Continue knee immobilizer-adjusted today. Swelling improved. Patient appears to be comfortable. Continue to monitor. If loss of alignment may require surgical treatment however high risk of complication given medical comorbidities including arterial disease. Swelling and overall appearance improved today. No evidence of infection. Edema control. Will require assistance initially with ADLs and transfer. (2) Peripheral arterial disease: Code(s): I73.9 - Peripheral vascular disease, unspecified Status: Acute Assessment and Plan: Moderate to severe decreased arterial blood flow right leg on MOJGAN and TBI. Unable to palpate pulses. Unaware if patient is followed by vascular surgery. (3) Bone lesion: Code(s): M89.9 - Disorder of bone, unspecified Status: Acute Assessment and Plan: CT scan right distal tibia with appearance of probable benign bone lesion. May consider bone scan at some point for final evaluation. Discussed with patient, he is not concerned at this time. Subjective Subjective Date/Time Seen: 06/19/20 08:16 Patient moved to floor yesterday. He is awake and alert. No new complaints. Appears comfortable. Eating breakfast. Does not appear ill. Exam Const: General: healthy appearing; No in distress or confusion Orientation/consciousness: oriented to person, oriented to place, oriented to time and No confusion HENMT: Head: normal to inspection, normocephalic and atraumatic Eyes: Conjunctivae: conjunctivae normal Sclera: sclerae normal Neck: Neck: supple and nontender Resp: Effort & Inspection: normal respiratory effort and no audible wheezes Cardio: Rate: regular rate Rhythm: regular rhythm Skin: General skin exam: no rashes or lesions noted Neuro: General: oriented to person, oriented to place, oriented to time and No confusion Extrem: Right upper extremity: normal to inspection Left upper extremity: normal to inspection Right lower extremity: edema Details: pitting and 3+, hip/thigh Details: no tenderness, knee Details: swelling Location: of the proximal fibula (Moderate) and of the proximal tibia Details: along the midline (Moderate) and abnormal ROM Details: with range as follows (No active motion knee, ankle, foot or toes); no tenderness, lower leg Details: ecchymosis (Proximal to mid lower leg) and other (Moderate swelling from the knee to the ankle. Small dime-sized skin eschar over the anterior proximal tibia- unable to probe below dermis. No erythema. No signs of infection.) and foot Details: edema Location: of the dorsal foot (Moderate), vascular exam Details: abnormal capillary refill Location: of all toes and other (Skin over the foot and toes intact.); dorsalis pedis pulse absent and posterior tibial pulse absent and motor-sensory exam Details: light-touch abnormal Location: in all toes; no tenderness Left lower extremity: hip/thigh (Above knee amputation with well-healed incision. No erythema. Muscle soft) Details: no tenderness Psych: Affect: normal affect Objective Data Vital Signs Vital Signs: Vital Signs - 24 hr 06/18/20 08:46 06/18/20 08:47 06/18/20 08:57 Temperature Pulse Rate 101
[2020-06-19] MEDS: LACTULOSE 20 GM/30 ML UDC PO (08:35)
[2020-06-19] MEDS: ASPIRIN 81 MG CHEWABLE TABLET PO (08:35)
[2020-06-19] MEDS: FERROUS SULFATE 324 MG TABLET PO ×2 (08:35→16:19)
[2020-06-19] MEDS: NICOTINE (*PBKC) 14 MG PATCH 1 PATCH TRANSDERM (08:36)
[2020-06-19 09:00] LABS: Glucose Point of Care 139 (65-105)
[2020-06-19 12:11] LABS: Glucose Point of Care 154 (65-105)
--- NOTE | 2020-06-19 12:12 | PCRCNOTE ---
Window of time for administration has passed. See next scheduled administration.
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
[2020-06-19] MEDS: ALBUTEROL SULFATE NEB 2.5 MG/0.5 ML INH 5 MG INHALATION ×2 (13:34→19:12)
[2020-06-19] MEDS: IPRATROPIUM BR 0.02% INH SOLN 0.5 MG/2.5 ML VIAL INHALATION ×2 (13:34→19:12)
[2020-06-19] MEDS: POTASSIUM CHLORIDE 20 MEQ TABLET 40 MEQ PO (13:47)
[2020-06-19] MEDS: FUROSEMIDE INJ 40 MG/4 ML VIAL IV PUSH (13:47)
[2020-06-19 14:24] LABS: Magnesium 1.9 mg/dL (1.6-2.3)
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
[2020-06-19 17:25] LABS: Glucose Point of Care 194 (65-105)
[2020-06-19] MEDS: PANTOPRAZOLE 40 MG TABLET PO (20:06)
[2020-06-19] MEDS: IBUPROFEN 400 MG TABLET PO (20:10)
[2020-06-19] MEDS: APIXABAN 2.5 MG TABLET PO (20:20)
[2020-06-19 21:38] LABS: Glucose Point of Care 228 (65-105)
[2020-06-19] MEDS: BISACODYL 10 MG SUPPOSITORY RECTAL (21:49)
[2020-06-20] VITALS (21 sets, daily range): BP systolic 120–141; BP diastolic 63–66; PULSE 69–108; RESP 18–22; TEMP 36–36.9; O2SAT 93–97
[2020-06-20] MEDS: ACETAMINOPHEN 325 MG TABLET 650 MG PO ×3 (00:03→19:21)
[2020-06-20 00:24] LABS: Add Urine Microscopic? YES; Appearance Urine Clear (Clear); Bacteria Urine Trace /hpf; Bilirubin Urine Negative (Negative); Blood Urine 1+ (Negative); Color Urine Yellow (Yellow); Glucose Urine UA Negative (Negative); Ketones Urine Negative (Negative); Leukocyte Esterase Ur Negative LEU/UL (Negative); Mucus Urine Rare /lpf; Nitrate Urine Negative (Negative); Protein Urine Negative (Negative); Specific Grav Ur 1.017 (1.001-1.035)
[2020-06-20] MEDS: ALBUTEROL SULFATE NEB 2.5 MG/0.5 ML INH 5 MG INHALATION ×4 (01:03→21:24)
[2020-06-20] MEDS: IPRATROPIUM BR 0.02% INH SOLN 0.5 MG/2.5 ML VIAL INHALATION ×4 (01:04→21:28)
[2020-06-20] MEDS: SODIUM CHLORIDE 0.9% IV 1,000 ML 100 ML IV CONT ×2 (02:04→13:22)
[2020-06-20 05:30] LABS: Hematocrit 30.6 % (42.0-52.0); Hemoglobin 9.3 g/dL (14.0-18.0); Immature Platelet Fraction Pct 6.4 % (0.9-11.2); Mean Corpuscular HGB Conc 30.4 g/dl (32-36); Mean Corpuscular Hemoglobin 28.4 pg (26-34); Mean Corpuscular Volume 93.3 fl (80-100); Mean Platelet Volume 11.6 fl (7.4-10.4); Platelet Count Result 89 k/mm3 (150-375); Red Blood Count 3.28 M/mm3 (4.6-6.20); Red Cell Distribution Width 16.2 % (11.5-14.5); White Blood Count 7.5 K/mm3 (4.5-10.0)
[2020-06-20 05:42] LABS: Ammonia 56 umol/L (9-30); INR 1.4; Prothrombin Time 17.8 Seconds (11.1-14.7)
[2020-06-20 05:43] LABS: Alanine Aminotransferase 70 U/L (4-50); Alkaline Phosphatase 140 U/L (38-126); Anion Gap 2 mmol/L (8-16); Aspartate Amino Transferase 200 U/L (17-59); Bilirubin,Total 2.2 mg/dL (0.2-1.3); Blood Urea Nitrogen 12 mg/dL (9-20); Calcium 7.9 mg/dL (8.4-10.2); Carbon Dioxide 32 mmol/L (22-30); Chloride 99 mmol/L (98-107); Estimated CRCL calculation 134 ml/min; Estimated Glomerular Filt Rate > 60; Glucose 150 mg/dL (75-110); Magnesium 2.1 mg/dL (1.6-2.3); Phosphorus 3.8 mg/dL (2.5-4.5); Potassium 3.9 mmol/L (3.4-5.0); Sodium 133 mmol/L (137-145)
[2020-06-20 06:04] LABS: Creatine Kinase 4539 U/L (55-170)
[2020-06-20] MEDS: NICOTINE (*PBKC) 14 MG PATCH 1 PATCH TRANSDERM (09:34)
[2020-06-20] MEDS: ASPIRIN 81 MG CHEWABLE TABLET PO (09:35)
[2020-06-20] MEDS: FERROUS SULFATE 324 MG TABLET PO ×2 (09:35→18:32)
[2020-06-20] MEDS: PANTOPRAZOLE 40 MG TABLET PO (09:35)
[2020-06-20] MEDS: LACTULOSE 20 GM/30 ML UDC PO (09:35)
--- NOTE | 2020-06-20 09:35 | PM.CNCAR ---
Assessment and Plan Assessment and plan (1) Elevated troponin: Code(s): R77.8 - Other specified abnormalities of plasma proteins Status: Acute Assessment and Plan: likely related of rhabdo (2) Rhabdomyolysis: Code(s): M62.82 - Rhabdomyolysis Status: Acute Assessment and Plan: secondary to fall (3) Wide-complex tachycardia: Code(s): I47.2 - Ventricular tachycardia Status: Acute Assessment and Plan: Patient has an incomplete right bundle-branch block at baseline. in my opinion, With PACs and with higher heart rate, the incomplete right bundle branch block becomes a complete right bundle-branch block. albeit not completely excluded, I do not think this is ventricular tachycardia. I think it is supraventricular in origin. There is clearly other morphology QRS complexes which are consistent with isolated PVCs which do not have the appearance that is seen during the wide complex tachycardia. Regardless he is asymptomatic. could be related to sleep apnea. Will start him on low-dose beta-shraddha in the form metoprolol tartrate 12.5 mg p.o. b.i.d. and up titrate as able. Would keep him on cardiac monitor technician for another 24 hours then discontinue. (4) Tobacco abuse: Code(s): Z72.0 - Tobacco use Status: Acute (5) Fracture, tibia and fibula, proximal: Qualifiers: Encounter type: subsequent encounter Fracture healing: with routine healing Fracture type: closed Laterality: right Qualified Code(s): S82.101D - Unspecified fracture of upper end of right tibia, subsequent encounter for closed fracture with routine healing; S82.831D - Other fracture of upper and lower end of right fibula, subsequent encounter for closed fracture with routine healing Code(s): S82.109A - Unspecified fracture of upper end of unspecified tibia, initial encounter for closed fracture; S82.839A - Other fracture of upper and lower end of unspecified fibula, initial encounter for closed fracture Status: Acute Assessment and Plan: per Ortho History of Present Illness History of Present Illness Consult date/time: 06/20/20 09:35 Requesting physician: Maynor Tello MD Consult reason: Other ( [place]) Reason For Visit: COPD exacerbation, Tibia/Fibula fracture, Narrative: date of service 06/10/2020 Reason for consultation: Ventricular tachycardia History: Patient is a 59year-old male who is paraplegic. He has a history of left lower leg amputation. On the day of arrival patient had fallen while transferring and unfortunately all of his body weight went on to his leg. This subsequently resulted in a displaced tib-fib fracture. While on cardiac monitor technician presumably because of elevated troponins, patient was noted to have some brief episodes of Asymptomatic wide complex tachycardia. cardiology consultation is therefore requested. Patient does not eyes any previous cardiac history. He denies any chest pain, shortness breath, syncope, presyncope, paroxysmal nocturnal dyspnea, orthopnea, edema palpitations. Review of Systems Review of Systems: All systems reviewed & are unremarkable except as noted in HPI and below Constitutional: Constitutional: Denies weakness Eyes: Eyes: Denies blurry vision ENT: Reports Normal hearing present Cardiovascular: Cardiovascular: Denies chest pain Respiratory: Respiratory: Reports dyspnea Gastrointestinal: Gastrointestinal: Denies abdominal pain Genitourinary: Genitourinary: Denies dysuria Musculoskeletal: Musculoskeletal: Denies neck pain Integumentary/Breasts: Skin/Breast: Reports dry skin and Reports unusual bruising Neurologic: Denies headache(s) Psychiatric: Psychiatric: Denies anxiety Endocrine: Endocrine: Denies fatigue Hematologic/Lymphatic: Hematologic/Lymphatic: Denies easy bleeding Allergic/Immunologic: Allergic/Immunologic: Denies GI upset with certain foods PMFSH Past Medical History M
[2020-06-20] MEDS: CYCLOBENZAPRINE HCL 5 MG TABLET PO ×2 (09:42→19:21)
[2020-06-20 09:50] LABS: Glucose Point of Care 163 (65-105)
--- NOTE | 2020-06-20 10:02 | PM.PNORT ---
Progress Note: A&P Assessment and Plan (1) Fracture, tibia and fibula, proximal: Qualifiers: Encounter type: subsequent encounter Fracture healing: with routine healing Fracture type: closed Laterality: right Qualified Code(s): S82.101D - Unspecified fracture of upper end of right tibia, subsequent encounter for closed fracture with routine healing; S82.831D - Other fracture of upper and lower end of right fibula, subsequent encounter for closed fracture with routine healing Code(s): S82.109A - Unspecified fracture of upper end of unspecified tibia, initial encounter for closed fracture; S82.839A - Other fracture of upper and lower end of unspecified fibula, initial encounter for closed fracture Status: Acute Assessment and Plan: Hospital day 4 right proximal tibia and fibular fracture. Main issue at this point is swelling in the right leg. He does not have palpable pulses to go by. Overall the swelling looks slightly improved. Creatine kinase numbers noted, may be from original injury. Continue with knee immobilizer. Continue with edema control. We will continue to observe. With his arterial status and the incision or operative treatment has high risk of failure, wound problems, infection and ultimately requiring amputation. Patient on antibiotics and blood thinner. Subjective Subjective Date/Time Seen: 06/20/20 10:02 Patient awake sitting up in bed eating breakfast. States feels better each day. No new complaints. Exam Const: General: healthy appearing; No in distress or confusion Orientation/consciousness: oriented to person, oriented to place, oriented to time and No confusion HENMT: Head: normal to inspection, normocephalic and atraumatic Eyes: Conjunctivae: conjunctivae normal Sclera: sclerae normal Neck: Neck: supple and nontender Resp: Effort & Inspection: normal respiratory effort and no audible wheezes Cardio: Rate: regular rate Rhythm: regular rhythm Skin: General skin exam: no rashes or lesions noted Neuro: General: oriented to person, oriented to place, oriented to time and No confusion Extrem: Right upper extremity: normal to inspection Left upper extremity: normal to inspection Right lower extremity: edema Details: pitting and 3+, hip/thigh Details: no tenderness, knee Details: swelling Location: of the proximal fibula (Moderate) and of the proximal tibia Details: along the midline (Moderate) and abnormal ROM Details: with range as follows (No active motion knee, ankle, foot or toes); no tenderness, lower leg Details: ecchymosis (Proximal to mid lower leg) and other (Moderate swelling from the knee to the ankle. Small dime-sized skin eschar over the anterior proximal tibia- unable to probe below dermis-improved healing. No erythema. No signs of infection.) and foot Details: edema Location: of the dorsal foot (Moderate), vascular exam Details: abnormal capillary refill Location: of all toes and other (Skin over the foot and toes intact.); dorsalis pedis pulse absent and posterior tibial pulse absent and motor-sensory exam Details: light-touch abnormal Location: in all toes; no tenderness Left lower extremity: hip/thigh (Above knee amputation with well-healed incision. No erythema. Muscle soft) Details: no tenderness Other: Right lower leg swelling moderate. Slightly improved today. No erythema. Ecchymosis at the proximal extent of the leg. Some wrinkling of the skin and skin peeling at the ankle. Right foot warm, no signs of necrosis or ischemia. Psych: Affect: normal affect Objective Data Vital Signs Vital Signs: Vital Signs - 24 hr 06/19/20 10:05 06/19/20 12:00 06/19/20 13:28 Temperature 98.2 F 99.2 F Pulse Rate 112 H 112 H 110 H Respiratory Rate 20 22 H Blood Pressure 134/60 123/50 L Pulse Oximetry 93 91 06/19/20 13:38 06/19/20 13:46 06/19/20 16:00 Temperature Pulse Rate 104 H 108 H 109 H Respiratory Rate 18 18 Blood Pressure Pulse O
[2020-06-20] MEDS: APIXABAN 2.5 MG TABLET PO ×2 (10:18→20:34)
[2020-06-20] MEDS: METOPROLOL TARTRATE 12.5 MG TABLET PO ×2 (10:18→20:34)
[2020-06-20 12:06] LABS: Glucose Point of Care 218 (65-105)
[2020-06-20] MEDS: INSULIN ASPART (*BKC) 100 UNITS/ML SUB-Q (12:15)
[2020-06-20] MEDS: POTASSIUM CHLORIDE 20 MEQ TABLET PO (12:22)
[2020-06-20] MEDS: FUROSEMIDE INJ 40 MG/4 ML VIAL 20 MG IV PUSH (12:23)
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
[2020-06-20 13:10] LABS: Glucose Point of Care 226 (65-105)
--- NOTE | 2020-06-20 17:25 | WPDGIPROGNO ---
Progress Note: A&P Assessment and Plan (1) Cirrhosis: Code(s): K74.60 - Unspecified cirrhosis of liver Status: Acute Assessment and Plan: CT scan showed cirrhosis, portal hypertension and splenomegaly, also trace perihepatic ascites and some nonspecific right sided abdominal, mesenteric inflammation. Had low grade fever and started on antibiotic, denies abdominal pain or nausea. At some point he will need EGD to assess if varices, also liver imaging every 6 months for hcc screening work up of cirrhosis pending ? ELLIOTT (2) Elevated LFTs: Code(s): R79.89 - Other specified abnormal findings of blood chemistry Status: Acute (3) Increased ammonia level: Code(s): R79.89 - Other specified abnormal findings of blood chemistry Status: Acute Assessment and Plan: had minimal confusion earlier, agree with lactulose and titrate to 2-3 BM a day (4) Fracture, tibia and fibula, proximal: Qualifiers: Encounter type: subsequent encounter Fracture healing: with routine healing Fracture type: closed Laterality: right Qualified Code(s): S82.101D - Unspecified fracture of upper end of right tibia, subsequent encounter for closed fracture with routine healing; S82.831D - Other fracture of upper and lower end of right fibula, subsequent encounter for closed fracture with routine healing Code(s): S82.109A - Unspecified fracture of upper end of unspecified tibia, initial encounter for closed fracture; S82.839A - Other fracture of upper and lower end of unspecified fibula, initial encounter for closed fracture Status: Acute Assessment and Plan: ortho on board but medical management (5) Thrombocytopenia: Code(s): D69.6 - Thrombocytopenia, unspecified Status: Acute Assessment and Plan: probably from cirrhosis (6) Paraplegia: Code(s): G82.20 - Paraplegia, unspecified Status: Acute Subjective Date/time seen: 06/20/20 17:25 Interval history: no new events, he received lactulose because high ammonia and had BM Review of Systems Review of Systems: All systems reviewed & are unremarkable except as noted in HPI and below Exam Const: General: comfortable; No in distress or confusion Orientation/consciousness: oriented to person, oriented to place and oriented to time HENMT: Head: normal to inspection, normocephalic and atraumatic General nose exam: Normal nares present Eyes: Conjunctivae: conjunctivae normal Sclera: sclerae normal Neck: Neck: supple and nontender Resp: Effort & Inspection: normal respiratory effort and no audible wheezes Cardio: Rate: regular rate Rhythm: regular rhythm GI: Inspection: non-distended GI Palp: Yes Soft to palpation and No Tenderness to palpation present (GI) Auscultation: normal bowel sounds Other: obese Urinary Catheter: Urinary Catheter: patent and draining Skin: General skin exam: no jaundice Neuro: General: oriented to person, oriented to place, oriented to time and No confusion Other: paraplegic Extrem: Right upper extremity: normal to inspection Left upper extremity: normal to inspection Right lower extremity: edema Details: pitting and 3+ and lower leg Details: ecchymosis (Proximal to mid lower leg) and other (Moderate swelling from the knee to the ankle.) Other: left AKA Psych: Affect: normal affect Objective Data Vital Signs Vital Signs: Vital Signs - 24 hr 06/19/20 18:00 06/19/20 18:53 06/19/20 19:15 Temperature 99.7 F H 101.2 F H Pulse Rate 110 H 111 H Respiratory Rate 24 H 26 H Blood Pressure 112/52 L Pulse Oximetry 87 L 93 06/19/20 19:19 06/19/20 19:21 06/19/20 20:00 Temperature Pulse Rate 111 H 106 H 112 H Respiratory Rate 26 H 26 H Blood Pressure Pulse Oximetry 86 L 06/19/20 20:10 06/19/20 21:43 06/19/20 22:07 Temperature 101.2 F H 97.2 F L 97.4 F L Pulse Rate 110 H Respiratory Rate 20 Blood Pressure 149/58 H Pulse Oximetry 92
[2020-06-20 18:48] LABS: Glucose Point of Care 156 (65-105)
[2020-06-20] MEDS: BISACODYL 10 MG SUPPOSITORY RECTAL (20:36)
[2020-06-20 20:58] LABS: Glucose Point of Care 187 (65-105)
[2020-06-21] VITALS (20 sets, daily range): BP systolic 129–163; BP diastolic 56–80; PULSE 90–128; RESP 18–22; TEMP 36.2–37; O2SAT 74–99
[2020-06-21] MEDS: ALBUTEROL SULFATE NEB 2.5 MG/0.5 ML INH 5 MG INHALATION ×4 (02:53→20:09)
[2020-06-21] MEDS: IPRATROPIUM BR 0.02% INH SOLN 0.5 MG/2.5 ML VIAL INHALATION ×4 (02:54→20:09)
[2020-06-21] MEDS: CYCLOBENZAPRINE HCL 5 MG TABLET PO ×2 (03:31→20:50)
[2020-06-21] MEDS: ACETAMINOPHEN 325 MG TABLET 650 MG PO ×3 (03:31→20:50)
[2020-06-21] MEDS: SODIUM CHLORIDE 0.9% IV 1,000 ML 100 ML IV CONT ×2 (05:51→18:57)
[2020-06-21 07:34] LABS: Glucose Point of Care 127 (65-105)
[2020-06-21] MEDS: ASPIRIN 81 MG CHEWABLE TABLET PO (08:23)
[2020-06-21] MEDS: APIXABAN 2.5 MG TABLET PO ×2 (08:23→20:53)
[2020-06-21] MEDS: FERROUS SULFATE 324 MG TABLET PO ×2 (08:23→16:33)
[2020-06-21] MEDS: NICOTINE (*PBKC) 14 MG PATCH 1 PATCH TRANSDERM (08:24)
[2020-06-21] MEDS: PANTOPRAZOLE 40 MG TABLET PO (08:24)
[2020-06-21] MEDS: LACTULOSE 20 GM/30 ML UDC PO (08:24)
[2020-06-21] MEDS: METOPROLOL TARTRATE 12.5 MG TABLET PO (08:24)
[2020-06-21 08:26] LABS: Basophils Percent Auto 0.5 % (0.2-1.2); Eosinophils Absolute Auto 0.2 K/mm3 (0-0.3); Eosinophils Percent Auto 2.6 % (0-4.4); Hematocrit 31.6 % (42.0-52.0); Hemoglobin 9.7 g/dL (14.0-18.0); Immature Granulocyte Absolute 0.03 K/mm3 (0.00-0.031); Immature Granulocyte Percent A 0.5 % (0-0.5); Immature Platelet Fraction Pct 6.6 % (0.9-11.2); Lymphocytes Absolute Auto 0.68 K/mm3 (0.9-3.2); Lymphocytes Percent Auto 10.4 % (18.3-44.2); Mean Corpuscular HGB Conc 30.7 g/dl (32-36); Mean Corpuscular Hemoglobin 29.4 pg (26-34); Mean Corpuscular Volume 95.8 fl (80-100); Mean Platelet Volume 11.3 fl (7.4-10.4); Monocytes Absolute Auto 0.8 K/mm3 (0.1-0.6); Monocytes Percent Auto 12.7 % (2.6-8.5); Neutrophils Absolute Auto 4.8 K/mm3 (1.3-6.7); Neutrophils Percent Auto 73.3 % (45.5-73.1); Platelet Count Result 113 k/mm3 (150-375); Red Cell Distribution Width 15.9 % (11.5-14.5); White Blood Count 6.6 K/mm3 (4.5-10.0)
[2020-06-21 08:55] LABS: Alanine Aminotransferase 71 U/L (4-50); Albumin Level 3.1 g/dL (3.5-5.1); Alkaline Phosphatase 144 U/L (38-126); Anion Gap 0 mmol/L (8-16); Aspartate Amino Transferase 163 U/L (17-59); Bilirubin,Total 2.2 mg/dL (0.2-1.3); Blood Urea Nitrogen 11 mg/dL (9-20); Carbon Dioxide 33 mmol/L (22-30); Chloride 98 mmol/L (98-107); Creatine Kinase 2634 U/L (55-170); Estimated CRCL calculation 178 ml/min; Estimated Glomerular Filt Rate > 60; Glucose 145 mg/dL (75-110); Magnesium 2.2 mg/dL (1.6-2.3); Potassium 4.9 mmol/L (3.4-5.0); Sodium 131 mmol/L (137-145)
[2020-06-21 09:19] LABS: Vancomycin Trough 8.6 ug/mL (10.0-20.0)
--- NOTE | 2020-06-21 10:13 | PM.PNCARD ---
Progress Note: A&P Assessment and Plan (1) Elevated troponin: Code(s): R77.8 - Other specified abnormalities of plasma proteins Status: Acute Assessment and Plan: likely related of rhabdo (2) Rhabdomyolysis: Code(s): M62.82 - Rhabdomyolysis Status: Acute Assessment and Plan: secondary to fall (3) Wide-complex tachycardia: Code(s): I47.2 - Ventricular tachycardia Status: Acute Assessment and Plan: He did have a clear episode nonsustained VT yesterday. It was short and asymptomatic. Will increase metoprolol to 25 mg p.o. b.i.d.. . DC telemetry (4) Tobacco abuse: Code(s): Z72.0 - Tobacco use Status: Acute (5) Fracture, tibia and fibula, proximal: Qualifiers: Encounter type: subsequent encounter Fracture healing: with routine healing Fracture type: closed Laterality: right Qualified Code(s): S82.101D - Unspecified fracture of upper end of right tibia, subsequent encounter for closed fracture with routine healing; S82.831D - Other fracture of upper and lower end of right fibula, subsequent encounter for closed fracture with routine healing Code(s): S82.109A - Unspecified fracture of upper end of unspecified tibia, initial encounter for closed fracture; S82.839A - Other fracture of upper and lower end of unspecified fibula, initial encounter for closed fracture Status: Acute Assessment and Plan: per Ortho Subjective Date/time seen: 06/21/20 10:13 Interval history: reason for admission: Broken leg Date of service 06/21/2020: Feels good. No chest pain or shortness breath. Review of Systems Review of Systems: All systems reviewed & are unremarkable except as noted in HPI and below Constitutional: Constitutional: Denies fatigue, Denies headache(s) and Denies weakness Eyes: Eyes: Denies blurry vision ENT: Reports Normal hearing present, Denies headache(s) and Denies neck pain Cardiovascular: Cardiovascular: Denies chest pain and Reports dyspnea Respiratory: Respiratory: Reports dyspnea Gastrointestinal: Gastrointestinal: Denies abdominal pain Genitourinary: Genitourinary: Denies dysuria Musculoskeletal: Musculoskeletal: Denies neck pain Integumentary/Breasts: Skin/Breast: Reports dry skin and Reports unusual bruising Neurologic: Reports Normal hearing present, Denies headache(s) and Denies weakness Psychiatric: Psychiatric: Denies anxiety Endocrine: Endocrine: Denies fatigue Hematologic/Lymphatic: Hematologic/Lymphatic: Denies easy bleeding Allergic/Immunologic: Allergic/Immunologic: Denies GI upset with certain foods Exam Narrative: Exam Narrative: patient awake alert oriented and appears to be in no acute distress Const: General: comfortable and no acute distress HENMT: General nose exam: Normal nares present Eyes: Sclera: sclerae normal Neck: Neck: supple and no JVD Chest: Other: no reproducible chest wall pain to palpation Resp: Auscultation: clear to auscultation bilaterally Cardio: Rate: regular rate Rhythm: regular rhythm Urinary Catheter: Urinary Catheter: patent and draining Skin: Other: significant bruising /redness is noted in right lower extremity Neuro: Cranial nerves: Yes Normal hearing present Cognition (Neuro): normal cognition Speech: normal speech Extrem: General: edema and pedal edema Other: left leg amputation Psych: Mental Status: mental status grossly normal Objective Data Vital Signs Vital Signs: Vital Signs - 24 hr 06/20/20 10:18 06/20/20 10:57 06/20/20 12:00 Temperature Pulse Rate 90 85 Respiratory Rate Blood Pressure Pulse Oximetry 93 06/20/20 14:10 06/20/20 15:25 06/20/20 15:33 Temperature 36.2 C L Pulse Rate 84 88 91 Respiratory Rate 20 18 18 Blood Pressure 120/66 Pulse Oximetry 96 06/20/20 16:00 06/20/20 18:00 06/20/20 20:00 Temperature 36.9 C Pulse Rate 89 95 108 H Respiratory Rate 18
[2020-06-21 11:55] LABS: Glucose Point of Care 164 (65-105)
--- NOTE | 2020-06-21 12:48 | PM.PNORT ---
Progress Note: A&P Assessment and Plan (1) Fracture, tibia and fibula, proximal: Qualifiers: Encounter type: subsequent encounter Fracture healing: with routine healing Fracture type: closed Laterality: right Qualified Code(s): S82.101D - Unspecified fracture of upper end of right tibia, subsequent encounter for closed fracture with routine healing; S82.831D - Other fracture of upper and lower end of right fibula, subsequent encounter for closed fracture with routine healing Code(s): S82.109A - Unspecified fracture of upper end of unspecified tibia, initial encounter for closed fracture; S82.839A - Other fracture of upper and lower end of unspecified fibula, initial encounter for closed fracture Status: Acute Assessment and Plan: Hospital day 5 right proximal tibia and fibular fracture. Main issue at this point is swelling in the right leg. He does not have palpable pulses to go by. Overall the swelling looks slightly improved. Creatine kinase numbers Trending down nicely. Continue with knee immobilizer. Continue with edema control. We will continue to observe. With his arterial status any incision or operative treatment has high risk of failure, wound problems, infection and ultimately requiring amputation. Patient on antibiotics and blood thinner. Overall right leg slightly improved today. Continue with edema control. Transfers to chair with therapy. Will follow. Subjective Subjective Date/Time Seen: 06/21/20 08:05 patient with report of difficulty breathing overnight. Decreased oxygen. Just finished respiratory treatment. No complaints with right leg. Exam Const: General: healthy appearing; No in distress or confusion Orientation/consciousness: oriented to person, oriented to place, oriented to time and No confusion HENMT: Head: normal to inspection, normocephalic and atraumatic Eyes: Conjunctivae: conjunctivae normal Sclera: sclerae normal Neck: Neck: supple and nontender Resp: Effort & Inspection: normal respiratory effort and no audible wheezes Cardio: Rate: regular rate Rhythm: regular rhythm Skin: General skin exam: no rashes or lesions noted Neuro: General: oriented to person, oriented to place, oriented to time and No confusion Extrem: Right upper extremity: normal to inspection Left upper extremity: normal to inspection Right lower extremity: edema Details: pitting and 3+, hip/thigh Details: no tenderness, knee Details: swelling Location: of the proximal fibula (Moderate) and of the proximal tibia Details: along the midline (Moderate) and abnormal ROM Details: with range as follows (No active motion knee, ankle, foot or toes); no tenderness, lower leg Details: ecchymosis (Proximal to mid lower leg) and other (Moderate swelling from the knee to the ankle. Small dime-sized skin eschar over the anterior proximal tibia- unable to probe below dermis-improved healing. No erythema. No signs of infection.) and foot Details: edema Location: of the dorsal foot (Moderate), vascular exam Details: abnormal capillary refill Location: of all toes and other (Skin over the foot and toes intact.); dorsalis pedis pulse absent and posterior tibial pulse absent and motor-sensory exam Details: light-touch abnormal Location: in all toes; no tenderness Left lower extremity: hip/thigh (Above knee amputation with well-healed incision. No erythema. Muscle soft) Details: no tenderness Other: Right lower leg swelling improved today. Skin less tense, muscle soft. No erythema. Ecchymosis at the proximal extent of the leg. Some wrinkling of the skin and skin peeling at the ankle. Right foot warm, no signs of necrosis or ischemia. Psych: Affect: normal affect Objective Data Vital Signs Vital Signs: Vital Signs - 24 hr 06/20/20 14:10 06/20/20 15:25 06/20/20 15:33 Temperature 97.1 F L Pulse Rate 84 88 91 Respiratory Rate 20 18 18 Blood Pressure 120/66 Pulse Oximetry 96 06/20/20
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
[2020-06-21 16:09] LABS: Glucose Point of Care 138 (65-105)
--- NOTE | 2020-06-21 16:30 | WPDGIPROGNO ---
Progress Note: A&P Assessment and Plan (1) Cirrhosis: Code(s): K74.60 - Unspecified cirrhosis of liver Status: Acute Assessment and Plan: CT scan showed cirrhosis, portal hypertension and splenomegaly I would like to see him in office in 4-6 weeks and then we can talk about doing EGD as outpatient to assess if PHG or varices work up of cirrhosis pending ? ELLIOTT (2) Elevated LFTs: Code(s): R79.89 - Other specified abnormal findings of blood chemistry Status: Acute Assessment and Plan: from liver cirrhosis, stable (3) Increased ammonia level: Code(s): R79.89 - Other specified abnormal findings of blood chemistry Status: Acute Assessment and Plan: continue with lactulose and titrate to 2-3 BM a day no confusion now (4) Fracture, tibia and fibula, proximal: Qualifiers: Encounter type: subsequent encounter Fracture healing: with routine healing Fracture type: closed Laterality: right Qualified Code(s): S82.101D - Unspecified fracture of upper end of right tibia, subsequent encounter for closed fracture with routine healing; S82.831D - Other fracture of upper and lower end of right fibula, subsequent encounter for closed fracture with routine healing Code(s): S82.109A - Unspecified fracture of upper end of unspecified tibia, initial encounter for closed fracture; S82.839A - Other fracture of upper and lower end of unspecified fibula, initial encounter for closed fracture Status: Acute Assessment and Plan: ortho on board but medical management (5) Thrombocytopenia: Code(s): D69.6 - Thrombocytopenia, unspecified Status: Acute Assessment and Plan: probably from cirrhosis (6) Paraplegia: Code(s): G82.20 - Paraplegia, unspecified Status: Acute Subjective Date/time seen: 06/21/20 16:30 Interval history: no new events, she is eating, breathing rx helping Review of Systems Review of Systems: All systems reviewed & are unremarkable except as noted in HPI and below Exam Const: General: comfortable; No in distress or confusion Orientation/consciousness: oriented to person, oriented to place and oriented to time HENMT: Head: normal to inspection, normocephalic and atraumatic General nose exam: Normal nares present Eyes: Conjunctivae: conjunctivae normal Sclera: sclerae normal Neck: Neck: supple and nontender Resp: Effort & Inspection: normal respiratory effort and no audible wheezes Cardio: Rate: regular rate Rhythm: regular rhythm GI: Inspection: non-distended GI Palp: Yes Soft to palpation and No Tenderness to palpation present (GI) Auscultation: normal bowel sounds Other: obese Urinary Catheter: Urinary Catheter: patent and draining Skin: General skin exam: no jaundice Neuro: General: oriented to person, oriented to place, oriented to time and No confusion Other: paraplegic Extrem: Right upper extremity: normal to inspection Left upper extremity: normal to inspection Right lower extremity: edema Details: pitting and 3+ and lower leg Details: ecchymosis (Proximal to mid lower leg) and other (Moderate swelling from the knee to the ankle.) Other: left AKA Psych: Affect: normal affect Objective Data Vital Signs Vital Signs: Vital Signs - 24 hr 06/20/20 18:00 06/20/20 20:00 06/20/20 20:34 Temperature 98.4 F Pulse Rate 95 108 H 100 Respiratory Rate 18 Blood Pressure 126/64 Pulse Oximetry 95 97 06/20/20 21:29 06/20/20 21:39 06/20/20 22:08 Temperature 98.1 F Pulse Rate 92 91 100 Respiratory Rate 18 18 22 H Blood Pressure 133/65 Pulse Oximetry 97 06/21/20 00:00 06/21/20 02:54 06/21/20 03:02 Temperature 97.3 F L Pulse Rate 94 90 91 Respiratory Rate 22 H 18 18 Blood Pressure 138/56 L Pulse Oximetry 96 06/21/20 04:00 06/21/20 05:06 06/21/20 07:42 Temperature 97.2 F L Pulse Rate 95 94 102 H Respiratory Rate 22 H 20 Blood Pressure 129/56 L Pul
[2020-06-21] MEDS: BISACODYL 10 MG SUPPOSITORY RECTAL (18:16)
[2020-06-21] MEDS: METOPROLOL TARTRATE 25 MG TABLET PO (20:54)
[2020-06-21 22:30] LABS: Glucose Point of Care 169 (65-105)
[2020-06-22] VITALS (17 sets, daily range): BP systolic 125–151; BP diastolic 56–84; PULSE 80–95; RESP 17–23; TEMP 36–36.4; O2SAT 91–100
[2020-06-22] MEDS: IPRATROPIUM BR 0.02% INH SOLN 0.5 MG/2.5 ML VIAL INHALATION ×4 (03:21→21:02)
[2020-06-22] MEDS: ALBUTEROL SULFATE NEB 2.5 MG/0.5 ML INH 5 MG INHALATION ×4 (03:21→21:01)
--- NOTE | 2020-06-22 04:17 | PC.NURSE ---
Called to pt room by RT who reported pt was covered in blood. Bleeding located at IV site, J-loop had become disconnected and pt had been bleeding from IV catheter. Catheter was D/C intact.
[2020-06-22 05:52] LABS: Basophils Percent Auto 0.6 % (0.2-1.2); Eosinophils Absolute Auto 0.1 K/mm3 (0-0.3); Eosinophils Percent Auto 1.2 % (0-4.4); Hematocrit 31.3 % (42.0-52.0); Hemoglobin 9.4 g/dL (14.0-18.0); Immature Granulocyte Absolute 0.06 K/mm3 (0.00-0.031); Immature Granulocyte Percent A 0.9 % (0-0.5); Immature Platelet Fraction Pct 7.1 % (0.9-11.2); Lymphocytes Absolute Auto 0.66 K/mm3 (0.9-3.2); Lymphocytes Percent Auto 9.5 % (18.3-44.2); Mean Corpuscular Hemoglobin 28.8 pg (26-34); Mean Platelet Volume 11.3 fl (7.4-10.4); Monocytes Absolute Auto 0.9 K/mm3 (0.1-0.6); Monocytes Percent Auto 12.3 % (2.6-8.5); Neutrophils Absolute Auto 5.2 K/mm3 (1.3-6.7); Neutrophils Percent Auto 75.5 % (45.5-73.1); Platelet Count Result 147 k/mm3 (150-375); Red Blood Count 3.26 M/mm3 (4.6-6.20); Red Cell Distribution Width 15.7 % (11.5-14.5); White Blood Count 6.9 K/mm3 (4.5-10.0)
[2020-06-22 05:59] LABS: Alanine Aminotransferase 65 U/L (4-50); Albumin Level 3.2 g/dL (3.5-5.1); Alkaline Phosphatase 138 U/L (38-126); Anion Gap 4 mmol/L (8-16); Aspartate Amino Transferase 128 U/L (17-59); Bilirubin,Total 2.2 mg/dL (0.2-1.3); Blood Urea Nitrogen 15 mg/dL (9-20); Calcium 8.1 mg/dL (8.4-10.2); Carbon Dioxide 30 mmol/L (22-30); Chloride 96 mmol/L (98-107); Creatine Kinase 1546 U/L (55-170); Estimated CRCL calculation 151 ml/min; Estimated Glomerular Filt Rate > 60; Glucose 143 mg/dL (75-110); Potassium 5.1 mmol/L (3.4-5.0); Sodium 130 mmol/L (137-145)
[2020-06-22] MEDS: ASPIRIN 81 MG CHEWABLE TABLET PO (08:18)
[2020-06-22] MEDS: NICOTINE (*PBKC) 14 MG PATCH 1 PATCH TRANSDERM (08:18)
[2020-06-22] MEDS: FERROUS SULFATE 324 MG TABLET PO ×2 (08:18→15:59)
[2020-06-22] MEDS: APIXABAN 2.5 MG TABLET PO ×2 (08:18→22:43)
[2020-06-22] MEDS: METOPROLOL TARTRATE 25 MG TABLET PO ×2 (08:18→22:43)
[2020-06-22] MEDS: PANTOPRAZOLE 40 MG TABLET PO (08:19)
[2020-06-22] MEDS: LACTULOSE 20 GM/30 ML UDC PO (08:19)
[2020-06-22 08:25] LABS: Glucose Point of Care 134 (65-105)
[2020-06-22 08:48] LABS: Mitochondrial (M2) Ab (IgG) <=20.0 U (<=20.0)
--- NOTE | 2020-06-22 09:46 | PM.PNCARD ---
Progress Note: A&P Assessment and Plan (1) Elevated troponin: Code(s): R77.8 - Other specified abnormalities of plasma proteins Status: Acute Assessment and Plan: likely related of rhabdo (2) Rhabdomyolysis: Code(s): M62.82 - Rhabdomyolysis Status: Acute Assessment and Plan: secondary to fall (3) Wide-complex tachycardia: Code(s): I47.2 - Ventricular tachycardia Status: Acute Assessment and Plan: continue metoprolol (4) Tobacco abuse: Code(s): Z72.0 - Tobacco use Status: Acute (5) Fracture, tibia and fibula, proximal: Qualifiers: Encounter type: subsequent encounter Fracture healing: with routine healing Fracture type: closed Laterality: right Qualified Code(s): S82.101D - Unspecified fracture of upper end of right tibia, subsequent encounter for closed fracture with routine healing; S82.831D - Other fracture of upper and lower end of right fibula, subsequent encounter for closed fracture with routine healing Code(s): S82.109A - Unspecified fracture of upper end of unspecified tibia, initial encounter for closed fracture; S82.839A - Other fracture of upper and lower end of unspecified fibula, initial encounter for closed fracture Status: Acute Assessment and Plan: per Ortho (6) Volume overload: Code(s): E87.70 - Fluid overload, unspecified Status: Acute Assessment and Plan: will DC IV fluids. He is volume overloaded at this point. Will also give him a dose of furosemide 40 mg IV x1. Subjective Date/time seen: 06/22/20 09:46 Interval history: reason for admission: Broken leg Date of service 06/22/2020: Feels good. No chest pain. He does have some shortness of breath that has developed Review of Systems Review of Systems: All systems reviewed & are unremarkable except as noted in HPI and below Constitutional: Constitutional: Denies fatigue, Denies headache(s) and Denies weakness Eyes: Eyes: Denies blurry vision ENT: Reports Normal hearing present, Denies headache(s) and Denies neck pain Cardiovascular: Cardiovascular: Denies chest pain and Reports dyspnea Respiratory: Respiratory: Reports dyspnea Gastrointestinal: Gastrointestinal: Denies abdominal pain Genitourinary: Genitourinary: Denies dysuria Musculoskeletal: Musculoskeletal: Denies neck pain Integumentary/Breasts: Skin/Breast: Reports dry skin and Reports unusual bruising Neurologic: Reports Normal hearing present, Denies headache(s) and Denies weakness Psychiatric: Psychiatric: Denies anxiety Endocrine: Endocrine: Denies fatigue Hematologic/Lymphatic: Hematologic/Lymphatic: Denies easy bleeding Allergic/Immunologic: Allergic/Immunologic: Denies GI upset with certain foods Exam Narrative: Exam Narrative: patient awake alert oriented and appears to be in no acute distress Const: General: comfortable and no acute distress HENMT: General nose exam: Normal nares present Eyes: Sclera: sclerae normal Neck: Neck: supple and no JVD Chest: Other: no reproducible chest wall pain to palpation Resp: Auscultation: clear to auscultation bilaterally Cardio: Rate: regular rate Rhythm: regular rhythm Urinary Catheter: Urinary Catheter: patent and draining Skin: Other: significant bruising /redness is noted in right lower extremity Neuro: Cranial nerves: Yes Normal hearing present Cognition (Neuro): normal cognition Speech: normal speech Extrem: General: edema and pedal edema Other: left leg amputation Psych: Mental Status: mental status grossly normal Objective Data Vital Signs Vital Signs: Vital Signs - 24 hr 06/21/20 13:50 06/21/20 13:55 06/21/20 14:17 Temperature Pulse Rate 94 Respiratory Rate 20 Blood Pressure Pulse Oximetry 83 L 93 06/21/20 14:30 06/21/20 16:00 06/21/20 17:39 Temperature 36.8 C Pulse Rate 97 128 H 99 Respiratory Rate 20 20 Blood Pressure 16
[2020-06-22] MEDS: FUROSEMIDE INJ 40 MG/4 ML VIAL IV PUSH (11:22)
[2020-06-22 11:58] LABS: Glucose Point of Care 166 (65-105)
--- NOTE | 2020-06-22 13:08 | PM.PNORT ---
Progress Note: A&P Assessment and Plan (1) Fracture, tibia and fibula, proximal: Qualifiers: Encounter type: subsequent encounter Fracture healing: with routine healing Fracture type: closed Laterality: right Qualified Code(s): S82.101D - Unspecified fracture of upper end of right tibia, subsequent encounter for closed fracture with routine healing; S82.831D - Other fracture of upper and lower end of right fibula, subsequent encounter for closed fracture with routine healing Code(s): S82.109A - Unspecified fracture of upper end of unspecified tibia, initial encounter for closed fracture; S82.839A - Other fracture of upper and lower end of unspecified fibula, initial encounter for closed fracture Status: Acute Assessment and Plan: Hospital day 6 right proximal tibia and fibular fracture. Swelling in the right leg Improved. He does not have palpable pulses to go by. Overall the swelling looks slightly improved. Creatine kinase numbers continue trending down. Continue with knee immobilizer. Continue with edema control. We will continue to observe. With his arterial status any incision or operative treatment has high risk of failure, wound problems, infection and ultimately requiring amputation. Patient on antibiotics and blood thinner. Overall right leg slightly improved today. Continue with edema control. Transfers to chair with therapy. Will follow. slightly more confused today. Possibly pulmonary? . Will observe with diuresis. Subjective Subjective Date/Time Seen: 06/22/20 13:08 Patient awake but a little more confused today. Oriented to self and place but states just got back from home and wants to be moved to the wound. Exam Const: General: healthy appearing; No in distress or confusion Orientation/consciousness: oriented to person, oriented to place, oriented to time and No confusion HENMT: Head: normal to inspection, normocephalic and atraumatic Eyes: Conjunctivae: conjunctivae normal Sclera: sclerae normal Neck: Neck: supple and nontender Resp: Effort & Inspection: normal respiratory effort and no audible wheezes Cardio: Rate: regular rate Rhythm: regular rhythm Skin: General skin exam: no rashes or lesions noted Neuro: General: oriented to person, oriented to place, oriented to time and No confusion Extrem: Right upper extremity: normal to inspection Left upper extremity: normal to inspection Right lower extremity: edema Details: pitting and 3+, hip/thigh Details: no tenderness, knee Details: swelling Location: of the proximal fibula (Moderate) and of the proximal tibia Details: along the midline (Moderate) and abnormal ROM Details: with range as follows (No active motion knee, ankle, foot or toes); no tenderness, lower leg Details: ecchymosis (Proximal to mid lower leg) and other (Moderate swelling from the knee to the ankle. Small dime-sized skin eschar over the anterior proximal tibia- unable to probe below dermis-improved healing. No erythema. No signs of infection.) and foot Details: edema Location: of the dorsal foot (Moderate), vascular exam Details: abnormal capillary refill Location: of all toes and other (Skin over the foot and toes intact.); dorsalis pedis pulse absent and posterior tibial pulse absent and motor-sensory exam Details: light-touch abnormal Location: in all toes; no tenderness Left lower extremity: hip/thigh (Above knee amputation with well-healed incision. No erythema. Muscle soft) Details: no tenderness Other: Right lower leg swelling slightly improved today. Skin less tense, muscle soft. No erythema. Ecchymosis at the proximal extent of the leg. Some wrinkling of the skin and skin peeling at the ankle. Right foot warm, no signs of necrosis or ischemia. Psych: Affect: normal affect Objective Data Vital Signs Vital Signs: Vital Signs - 24 hr 06/21/20 13:50 06/21/20 13:55 06/21/20 14:17 Temperature Pulse Rate 94 Respiratory Rate 20 B
[2020-06-22] MEDS: BENZONATATE 100 MG CAPSULE 200 MG PO (13:22)
--- NOTE | 2020-06-22 14:41 | PCPTNOTE ---
Attempted PT treatment. Per RN, pt has decline in medical status and ABGs being done. Will hold PT for this afternoon.
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
[2020-06-22 15:43] LABS: Alveolar/Arterial O2 Gradient 81.4 mmHg; Base Excess ABG 2.6 mEq/l (+/-2.0); Fractional Inspired Oxygen 32 %; Oxygen Content ABG 13.4 %vol (16.0-22.0); Oxygen Saturation ABG 88.8 % (95.0-100.0); Oxyhemoglobin 88.8 % THb (90.0-100.0); PO2 ABG 64.7 mmHg (80.0-100.0); PO2 FiO2 Ratio Arterial Blood 2.02 %; Total Hemoglobin 10.7 g/dL (12.0-18.0)
[2020-06-22 15:44] LABS: Device NASAL CANNULA; Modified Allen's Test Pass; PCO2 ABG 70.1 mmHg (35.0-45.0); Site Drawn RIGHT RADIAL; pH ABG 7.263 (7.350-7.450)
[2020-06-22 17:15] LABS: Alveolar/Arterial O2 Gradient 67.2 mmHg; Base Excess ABG -0.2 mEq/l (+/-2.0); Fractional Inspired Oxygen 32 %; HCO3 ABG 27.1 mEq/l (22.0-26.0); Oxygen Content ABG 13.9 %vol (16.0-22.0); Oxygen Saturation ABG 96.1 % (95.0-100.0); Oxyhemoglobin 94.9 % THb (90.0-100.0); PCO2 ABG 57.9 mmHg (35.0-45.0); PO2 ABG 93.2 mmHg (80.0-100.0); PO2 FiO2 Ratio Arterial Blood 2.91 %; Total Hemoglobin 10.3 g/dL (12.0-18.0)
[2020-06-22 17:16] LABS: Device NON-INVASIVE VENT; Modified Allen's Test Pass; Non-Invasive Expiratory Pressure 5 CMH2O; Non-Invasive Inspiratory Pressure 14 CMH2O; Non-Invasive Vent Rate 10 /MIN; Site Drawn RIGHT RADIAL; pH ABG 7.288 (7.350-7.450)
[2020-06-22 17:39] LABS: Glucose Point of Care 118 (65-105)
[2020-06-22 19:22] LABS: Alveolar/Arterial O2 Gradient 71.8 mmHg; Base Excess ABG 1.8 mEq/l (+/-2.0); Fractional Inspired Oxygen 32 %; HCO3 ABG 29.6 mEq/l (22.0-26.0); Oxygen Content ABG 13.5 %vol (16.0-22.0); Oxygen Saturation ABG 94.2 % (95.0-100.0); Oxyhemoglobin 93.4 % THb (90.0-100.0); PO2 FiO2 Ratio Arterial Blood 2.53 %; Total Hemoglobin 10.2 g/dL (12.0-18.0)
[2020-06-22 19:25] LABS: Device BIPAP; Modified Allen's Test Pass; PCO2 ABG 64.4 mmHg (35.0-45.0); Site Drawn RIGHT RADIAL
[2020-06-22 19:26] LABS: Expiratory Pressure 10 cmH2O; Inspiratory Pressure 20 cmH2O
[2020-06-22 23:06] LABS: Glucose Point of Care 152 (65-105)
[2020-06-23] VITALS (18 sets, daily range): BP systolic 80–149; BP diastolic 38–80; PULSE 71–100; RESP 20–26; TEMP 36.1–36.5; O2SAT 90–100
[2020-06-23] MEDS: ALBUTEROL SULFATE NEB 2.5 MG/0.5 ML INH 5 MG INHALATION ×4 (02:18→21:05)
[2020-06-23] MEDS: IPRATROPIUM BR 0.02% INH SOLN 0.5 MG/2.5 ML VIAL INHALATION ×4 (02:18→21:05)
[2020-06-23 06:21] LABS: Alveolar/Arterial O2 Gradient 75.5 mmHg; Base Excess ABG 4.6 mEq/l (+/-2.0); Carboxyhemoglobin 0.2 % THb (0-2.0); Fractional Inspired Oxygen 32 %; HCO3 ABG 31.4 mEq/l (22.0-26.0); Methemoglobin ABG 0.3 %THb (0-1.5); Oxygen Content ABG 13.6 %vol (16.0-22.0); Oxygen Saturation ABG 95.4 % (95.0-100.0); Oxyhemoglobin 94.9 % THb (90.0-100.0); PCO2 ABG 59.2 mmHg (35.0-45.0); PO2 ABG 83.4 mmHg (80.0-100.0); PO2 FiO2 Ratio Arterial Blood 2.61 %; Reduced Hemoglobin 4.6 %THb (0-5.0); Total Hemoglobin 10.1 g/dL (12.0-18.0); pH ABG 7.343 (7.350-7.450)
[2020-06-23 06:22] LABS: Device BIPAP; Expiratory Pressure 10 cmH2O; Inspiratory Pressure 20 cmH2O; Modified Allen's Test Pass; Site Drawn RIGHT RADIAL
[2020-06-23 07:26] LABS: Basophils Percent Auto 0.5 % (0.2-1.2); Eosinophils Absolute Auto 0.2 K/mm3 (0-0.3); Eosinophils Percent Auto 2.7 % (0-4.4); Hematocrit 30.5 % (42.0-52.0); Hemoglobin 8.9 g/dL (14.0-18.0); Immature Granulocyte Absolute 0.05 K/mm3 (0.00-0.031); Immature Granulocyte Percent A 0.9 % (0-0.5); Lymphocytes Absolute Auto 0.69 K/mm3 (0.9-3.2); Lymphocytes Percent Auto 12.2 % (18.3-44.2); Mean Corpuscular HGB Conc 29.2 g/dl (32-36); Mean Corpuscular Hemoglobin 28.6 pg (26-34); Mean Corpuscular Volume 98.1 fl (80-100); Mean Platelet Volume 10.4 fl (7.4-10.4); Monocytes Absolute Auto 0.8 K/mm3 (0.1-0.6); Monocytes Percent Auto 13.8 % (2.6-8.5); Neutrophils Percent Auto 69.9 % (45.5-73.1); Platelet Count Result 148 k/mm3 (150-375); Red Blood Count 3.11 M/mm3 (4.6-6.20); White Blood Count 5.7 K/mm3 (4.5-10.0)
[2020-06-23 07:28] LABS: Glucose Point of Care 122 (65-105)
[2020-06-23 07:39] LABS: Alanine Aminotransferase 56 U/L (4-50); Albumin Level 2.9 g/dL (3.5-5.1); Alkaline Phosphatase 126 U/L (38-126); Ammonia 123 umol/L (9-30); Anion Gap -1 mmol/L (8-16); Aspartate Amino Transferase 96 U/L (17-59); Bilirubin,Total 1.5 mg/dL (0.2-1.3); Blood Urea Nitrogen 18 mg/dL (9-20); Calcium 8.3 mg/dL (8.4-10.2); Carbon Dioxide 35 mmol/L (22-30); Chloride 97 mmol/L (98-107); Creatine Kinase 1017 U/L (55-170); Estimated CRCL calculation 135 ml/min; Estimated Glomerular Filt Rate > 60; Glucose 130 mg/dL (75-110); Potassium 5.1 mmol/L (3.4-5.0); Sodium 131 mmol/L (137-145)
[2020-06-23 07:40] LABS: Lactic Acid Reflex 1.1 mmol/L (0.7-2.1)
[2020-06-23] MEDS: FERROUS SULFATE 324 MG TABLET PO ×2 (08:34→17:27)
[2020-06-23] MEDS: ASPIRIN 81 MG CHEWABLE TABLET PO (08:34)
[2020-06-23] MEDS: PANTOPRAZOLE 40 MG TABLET PO (08:34)
[2020-06-23] MEDS: NICOTINE (*PBKC) 14 MG PATCH 1 PATCH TRANSDERM (08:35)
[2020-06-23] MEDS: APIXABAN 2.5 MG TABLET PO ×2 (08:35→20:14)
[2020-06-23] MEDS: METOPROLOL TARTRATE 25 MG TABLET PO ×2 (08:35→20:14)
[2020-06-23] MEDS: LACTULOSE 20 GM/30 ML UDC PO ×3 (08:35→17:27)
[2020-06-23 09:03] LABS: Vancomycin Trough 17.5 ug/mL (10.0-20.0)
--- NOTE | 2020-06-23 09:20 | PM.PNCARD ---
Progress Note: A&P Assessment and Plan (1) Elevated troponin: Code(s): R77.8 - Other specified abnormalities of plasma proteins Status: Acute Assessment and Plan: likely related of rhabdo (2) Rhabdomyolysis: Code(s): M62.82 - Rhabdomyolysis Status: Acute Assessment and Plan: secondary to fall (3) Wide-complex tachycardia: Code(s): I47.2 - Ventricular tachycardia Status: Acute Assessment and Plan: continue metoprolol (4) Tobacco abuse: Code(s): Z72.0 - Tobacco use Status: Acute (5) Fracture, tibia and fibula, proximal: Qualifiers: Encounter type: subsequent encounter Fracture healing: with routine healing Fracture type: closed Laterality: right Qualified Code(s): S82.101D - Unspecified fracture of upper end of right tibia, subsequent encounter for closed fracture with routine healing; S82.831D - Other fracture of upper and lower end of right fibula, subsequent encounter for closed fracture with routine healing Code(s): S82.109A - Unspecified fracture of upper end of unspecified tibia, initial encounter for closed fracture; S82.839A - Other fracture of upper and lower end of unspecified fibula, initial encounter for closed fracture Status: Acute Assessment and Plan: per Ortho (6) Volume overload: Code(s): E87.70 - Fluid overload, unspecified Status: Acute Assessment and Plan: Extra furosemide 40 mg IV x1. Pulmonology to see for sleep apnea Subjective Date/time seen: 06/23/20 09:20 Interval history: reason for admission: Broken leg Date of service 06/23/2020: Needed to be put on BiPAP last night because of CO2 retention. No chest pain. He does have some shortness of breath that has developed Review of Systems Review of Systems: All systems reviewed & are unremarkable except as noted in HPI and below Constitutional: Constitutional: Denies fatigue, Denies headache(s) and Denies weakness Eyes: Eyes: Denies blurry vision ENT: Reports Normal hearing present, Denies headache(s) and Denies neck pain Cardiovascular: Cardiovascular: Denies chest pain and Reports dyspnea Respiratory: Respiratory: Reports dyspnea Gastrointestinal: Gastrointestinal: Denies abdominal pain Genitourinary: Genitourinary: Denies dysuria Musculoskeletal: Musculoskeletal: Denies neck pain Integumentary/Breasts: Skin/Breast: Reports dry skin and Reports unusual bruising Neurologic: Reports Normal hearing present, Denies headache(s) and Denies weakness Psychiatric: Psychiatric: Denies anxiety Endocrine: Endocrine: Denies fatigue Hematologic/Lymphatic: Hematologic/Lymphatic: Denies easy bleeding Allergic/Immunologic: Allergic/Immunologic: Denies GI upset with certain foods Exam Narrative: Exam Narrative: patient awake alert oriented and appears to be in no acute distress Const: General: comfortable and no acute distress HENMT: General nose exam: Normal nares present Eyes: Sclera: sclerae normal Neck: Neck: supple and no JVD Chest: Other: no reproducible chest wall pain to palpation Resp: Auscultation: clear to auscultation bilaterally Cardio: Rate: regular rate Rhythm: regular rhythm Urinary Catheter: Urinary Catheter: patent and draining Skin: Other: significant bruising /redness is noted in right lower extremity Neuro: Cranial nerves: Yes Normal hearing present Cognition (Neuro): normal cognition Speech: normal speech Extrem: General: edema and pedal edema Other: left leg amputation Psych: Mental Status: mental status grossly normal Objective Data Vital Signs Vital Signs: Vital Signs - 24 hr 06/22/20 11:35 06/22/20 14:05 06/22/20 14:10 Temperature 36.2 C L Pulse Rate 87 87 Respiratory Rate 20 20 Blood Pressure 151/73 H Pulse Oximetry 91 96 06/22/20 16:05 06/22/20 17:42 06/22/20 18:10 Temperature Pulse Rate 90 95 95 Respiratory Rate 17 23 H 22
--- NOTE | 2020-06-23 09:40 | PM.PNORT ---
Progress Note: A&P Assessment and Plan (1) Fracture, tibia and fibula, proximal: Qualifiers: Encounter type: subsequent encounter Fracture healing: with routine healing Fracture type: closed Laterality: right Qualified Code(s): S82.101D - Unspecified fracture of upper end of right tibia, subsequent encounter for closed fracture with routine healing; S82.831D - Other fracture of upper and lower end of right fibula, subsequent encounter for closed fracture with routine healing Code(s): S82.109A - Unspecified fracture of upper end of unspecified tibia, initial encounter for closed fracture; S82.839A - Other fracture of upper and lower end of unspecified fibula, initial encounter for closed fracture Status: Acute Assessment and Plan: Hospital Day 7 right proximal tibia and fibular fracture. Continue swelling in the RLE, mild improvement. Unable to palpate pedal pulses at baseline. CK continues to trend down. Remaining labs pending. Continue with knee immobilizer. Elevate RLE on pillows. Ice. Continue with edema control. Will continue to observe. As previously mentioned, with his arterial status, any incision or operative treatment has high risk of failure, wound problems, infection and ultimately requiring amputation. Patient on antibiotics and blood thinner. Transfers to chair with therapy. Subjective Subjective Date/Time Seen: 06/23/20 09:00 No new complaints. Resting comfortably. Awakes to voice. Answering questions appropriately. Review of Systems Constitutional: Constitutional: Denies fever(s) Eyes: Eyes: Denies blurry vision ENT: Reports Normal hearing present Cardiovascular: Cardiovascular: Denies chest pain and Denies dyspnea Respiratory: Respiratory: Denies dyspnea and Denies wheezing Gastrointestinal: Gastrointestinal: Denies abdominal pain Genitourinary: Genitourinary: Denies urinary urgency Musculoskeletal: Musculoskeletal: Reports as per HPI and Reports numbness Integumentary/Breasts: Skin/Breast: Denies changing lesions and Denies sores Neurologic: Reports Normal hearing present, Denies behavioral changes, Denies confusion and Denies convulsions Psychiatric: Psychiatric: Denies behavioral changes, Denies confusion and Denies hallucinations Endocrine: Endocrine: Denies heat intolerance Hematologic/Lymphatic: Hematologic/Lymphatic: Denies easy bleeding Allergic/Immunologic: Allergic/Immunologic: Denies wheezing Exam Const: General: healthy appearing; No in distress or confusion Orientation/consciousness: oriented to person, oriented to place, oriented to time and No confusion HENMT: Head: normal to inspection, normocephalic and atraumatic Eyes: Conjunctivae: conjunctivae normal Sclera: sclerae normal Neck: Neck: supple and nontender Resp: Effort & Inspection: normal respiratory effort and no audible wheezes Cardio: Rate: regular rate Rhythm: regular rhythm Skin: General skin exam: no rashes or lesions noted Neuro: General: oriented to person, oriented to place, oriented to time and No confusion Extrem: Right upper extremity: normal to inspection Left upper extremity: normal to inspection Right lower extremity: edema Details: pitting and 3+, hip/thigh Details: no tenderness, knee Details: swelling Location: of the proximal fibula (Moderate) and of the proximal tibia Details: along the midline (Moderate) and abnormal ROM Details: with range as follows (No active motion knee, ankle, foot or toes); no tenderness, lower leg Details: ecchymosis (Proximal to mid lower leg) and other (Moderate swelling from the knee to the ankle. Small dime-sized skin eschar over the anterior proximal tibia- unable to probe below dermis-improved healing. No erythema. No signs of infection.) and foot Details: edema Location: of the dorsal foot (Moderate), vascular exam Details: abnormal capillary refill Location: of all toes and other (Skin over the foot and toes intact.); dors
[2020-06-23] MEDS: FUROSEMIDE INJ 40 MG/4 ML VIAL IV PUSH ×2 (10:17→17:27)
[2020-06-23 11:33] LABS: Glucose Point of Care 145 (65-105)
[2020-06-23 11:39] LABS: Hypochromasia 1+ (NORMAL); Platelet Estimate Adequate (Adequate); Stomatocytes 1+ (NORMAL)
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
[2020-06-23 16:19] LABS: Alveolar/Arterial O2 Gradient 66.3 mmHg; Base Excess ABG 4.4 mEq/l (+/-2.0); Fractional Inspired Oxygen 32 %; HCO3 ABG 31.3 mEq/l (22.0-26.0); Oxygen Content ABG 13.7 %vol (16.0-22.0); Oxygen Saturation ABG 96.3 % (95.0-100.0); Oxyhemoglobin 95.2 % THb (90.0-100.0); PO2 ABG 91.5 mmHg (80.0-100.0); PO2 FiO2 Ratio Arterial Blood 2.86 %; Total Hemoglobin 10.1 g/dL (12.0-18.0); pH ABG 7.335 (7.350-7.450)
[2020-06-23 16:24] LABS: Device BIPAP; Modified Allen's Test Pass; PCO2 ABG 60.1 mmHg (35.0-45.0); Site Drawn LEFT RADIAL
[2020-06-23 16:25] LABS: Expiratory Pressure 10 cmH2O; Inspiratory Pressure 20 cmH2O
--- NOTE | 2020-06-23 16:56 | WPDGIPROGNO ---
Progress Note: A&P Assessment and Plan (1) Cirrhosis: Code(s): K74.60 - Unspecified cirrhosis of liver Status: Acute Assessment and Plan: CT scan showed cirrhosis, portal hypertension and splenomegaly I would like to see him in office in 4-6 weeks and then we can talk about doing EGD as outpatient to assess if PHG or varices work up of cirrhosis pending ? [facility] scan also noted mesenteric inflammation and covered with antibiotics (treated also for UTI), blood cultures no growth (2) Elevated LFTs: Code(s): R79.89 - Other specified abnormal findings of blood chemistry Status: Acute Assessment and Plan: from liver cirrhosis, bili and transaminases trending down (higher also initially because rhabdo after fall with fracture) (3) Increased ammonia level: Code(s): R79.89 - Other specified abnormal findings of blood chemistry Status: Acute Assessment and Plan: continue with lactulose and titrate to 2-3 BM a day will add also xifaxan (4) Fracture, tibia and fibula, proximal: Qualifiers: Encounter type: subsequent encounter Fracture healing: with routine healing Fracture type: closed Laterality: right Qualified Code(s): S82.101D - Unspecified fracture of upper end of right tibia, subsequent encounter for closed fracture with routine healing; S82.831D - Other fracture of upper and lower end of right fibula, subsequent encounter for closed fracture with routine healing Code(s): S82.109A - Unspecified fracture of upper end of unspecified tibia, initial encounter for closed fracture; S82.839A - Other fracture of upper and lower end of unspecified fibula, initial encounter for closed fracture Status: Acute Assessment and Plan: ortho on board but medical management (5) Thrombocytopenia: Code(s): D69.6 - Thrombocytopenia, unspecified Status: Acute Assessment and Plan: probably from cirrhosis, stable (6) Paraplegia: Code(s): G82.20 - Paraplegia, unspecified Status: Acute Subjective Date/time seen: 06/23/20 16:56 Interval history: he got more confused and noted co2 retention, now on bipap Review of Systems Review of Systems: All systems reviewed & are unremarkable except as noted in HPI and below Exam Const: General: ill appearing chronically Other: on bipap now, sleepy but arousable HENMT: Head: normal to inspection, normocephalic and atraumatic General nose exam: Normal nares present Eyes: Conjunctivae: conjunctivae normal Sclera: sclerae normal Neck: Neck: supple and nontender Resp: Effort & Inspection: no audible wheezes Auscultation: diminished lung sounds Cardio: Rate: regular rate Rhythm: regular rhythm GI: Inspection: non-distended GI Palp: Yes Soft to palpation and No Tenderness to palpation present (GI) Auscultation: normal bowel sounds Other: obese Urinary Catheter: Urinary Catheter: patent and draining Skin: General skin exam: no jaundice Neuro: General: oriented to person, oriented to place, oriented to time and No confusion Other: paraplegic Extrem: Right upper extremity: normal to inspection Left upper extremity: normal to inspection Right lower extremity: edema Details: pitting and 3+ and lower leg Details: other (Moderate swelling from the knee to the ankle.) Other: left AKA Psych: Other: sleepy Objective Data Vital Signs Vital Signs: Vital Signs - 24 hr 06/22/20 17:42 06/22/20 18:10 06/22/20 21:04 Temperature Pulse Rate 95 95 95 Respiratory Rate 23 H 22 H 17 Blood Pressure Pulse Oximetry 06/22/20 21:06 06/22/20 22:05 06/22/20 22:43 Temperature 96.8 F L Pulse Rate 80 82 90 Respiratory Rate 20 20 Blood Pressure 146/84 H Pulse Oximetry 93 100 06/23/20 00:00 06/23/20 02:34 06/23/20 04:33 Temperature 97 F L 97.6 F Pulse Rate 71 76 81 Respiratory Rate 20 20 22 H Blood Pressure 123/64 136/69 Pulse Oximetry 100 98 06/23/20 10:46 06/23
[2020-06-23 17:45] LABS: Glucose Point of Care 137 (65-105)
[2020-06-23 18:05] LABS: Hepatitis C Viral RNA PCR <15 IU/mL
[2020-06-23] MEDS: rifAXIMin 550 MG TABLET PO (20:14)
[2020-06-23 20:34] LABS: Hepatitis B Core Ab Total Nonreactive (Nonreactive)
[2020-06-23 20:51] LABS: Glucose Point of Care 191 (65-105)
[2020-06-24] VITALS (18 sets, daily range): BP systolic 94–117; BP diastolic 46–65; PULSE 80–103; RESP 18–26; TEMP 36.1–37.1; O2SAT 89–97
[2020-06-24] MEDS: ALBUTEROL SULFATE NEB 2.5 MG/0.5 ML INH 5 MG INHALATION ×2 (02:39→09:00)
[2020-06-24] MEDS: IPRATROPIUM BR 0.02% INH SOLN 0.5 MG/2.5 ML VIAL INHALATION ×4 (02:40→20:41)
--- NOTE | 2020-06-24 04:08 | PC.NURSE ---
06/24/20 0200 patient has been very non-compliant with use of bipap this shift. he has taken it off numerous times, keeps on only short amts of times. off at present
[2020-06-24] MEDS: ACETAMINOPHEN 325 MG TABLET 650 MG PO (04:23)
[2020-06-24] MEDS: CYCLOBENZAPRINE HCL 5 MG TABLET PO (04:23)
[2020-06-24 05:29] LABS: Basophils Percent Auto 0.6 % (0.2-1.2); Eosinophils Absolute Auto 0.1 K/mm3 (0-0.3); Eosinophils Percent Auto 2.5 % (0-4.4); Hematocrit 28.8 % (42.0-52.0); Hemoglobin 8.6 g/dL (14.0-18.0); Immature Granulocyte Absolute 0.08 K/mm3 (0.00-0.031); Immature Granulocyte Percent A 1.5 % (0-0.5); Lymphocytes Absolute Auto 0.73 K/mm3 (0.9-3.2); Lymphocytes Percent Auto 13.9 % (18.3-44.2); Mean Corpuscular HGB Conc 29.9 g/dl (32-36); Mean Platelet Volume 10.7 fl (7.4-10.4); Monocytes Absolute Auto 0.8 K/mm3 (0.1-0.6); Monocytes Percent Auto 14.6 % (2.6-8.5); Neutrophils Absolute Auto 3.5 K/mm3 (1.3-6.7); Neutrophils Percent Auto 66.9 % (45.5-73.1); Platelet Count Result 149 k/mm3 (150-375); Red Blood Count 2.97 M/mm3 (4.6-6.20); Red Cell Distribution Width 15.8 % (11.5-14.5); White Blood Count 5.3 K/mm3 (4.5-10.0)
[2020-06-24 05:50] LABS: Anion Gap 1 mmol/L (8-16); Blood Urea Nitrogen 15 mg/dL (9-20); Calcium 7.8 mg/dL (8.4-10.2); Carbon Dioxide 35 mmol/L (22-30); Chloride 93 mmol/L (98-107); Estimated CRCL calculation 156 ml/min; Estimated Glomerular Filt Rate > 60; Glucose 133 mg/dL (75-110); Potassium 4.4 mmol/L (3.4-5.0); Sodium 129 mmol/L (137-145)
[2020-06-24 06:20] LABS: Platelet Estimate Adequate (Adequate)
[2020-06-24 06:21] LABS: Hypochromasia 1+ (NORMAL)
[2020-06-24 06:22] LABS: Anisocytosis 1+ (NORMAL)
--- NOTE | 2020-06-24 06:27 | PCDIET ---
patient scrotum oozing blood more frequently this am. bulky dressing applied to right sided scrotum.
[2020-06-24 07:07] LABS: Stomatocytes 1+ (NORMAL); Target Cells 1+ (NORMAL)
[2020-06-24 07:52] LABS: Glucose Point of Care 150 (65-105)
[2020-06-24] MEDS: APIXABAN 2.5 MG TABLET PO ×2 (08:32→20:32)
[2020-06-24] MEDS: FERROUS SULFATE 324 MG TABLET PO ×2 (08:32→16:18)
[2020-06-24] MEDS: ASPIRIN 81 MG CHEWABLE TABLET PO (08:32)
[2020-06-24] MEDS: PANTOPRAZOLE 40 MG TABLET PO (08:33)
[2020-06-24] MEDS: METOPROLOL TARTRATE 25 MG TABLET PO ×2 (08:33→20:36)
[2020-06-24] MEDS: FUROSEMIDE INJ 40 MG/4 ML VIAL IV PUSH ×2 (08:34→16:18)
[2020-06-24] MEDS: NICOTINE (*PBKC) 14 MG PATCH 1 PATCH TRANSDERM (08:34)
[2020-06-24] MEDS: rifAXIMin 550 MG TABLET PO ×2 (08:34→20:32)
[2020-06-24] MEDS: LACTULOSE 20 GM/30 ML UDC PO ×3 (08:35→16:17)
--- NOTE | 2020-06-24 08:54 | PM.PNORT ---
Progress Note: A&P Assessment and Plan (1) Fracture, tibia and fibula, proximal: Qualifiers: Encounter type: subsequent encounter Fracture healing: with routine healing Fracture type: closed Laterality: right Qualified Code(s): S82.101D - Unspecified fracture of upper end of right tibia, subsequent encounter for closed fracture with routine healing; S82.831D - Other fracture of upper and lower end of right fibula, subsequent encounter for closed fracture with routine healing Code(s): S82.109A - Unspecified fracture of upper end of unspecified tibia, initial encounter for closed fracture; S82.839A - Other fracture of upper and lower end of unspecified fibula, initial encounter for closed fracture Status: Acute Assessment and Plan: Hospital Day 8 right proximal tibia and fibular fracture. Swelling in the RLE, mild improvement. Unable to palpate pedal pulses at baseline. CK continues to trend down. Continue with knee immobilizer. Elevate RLE on pillows. Ice. Continue with edema control. Will continue to observe. As previously mentioned, with his arterial status, any incision or operative treatment has high risk of failure, wound problems, infection and ultimately requiring amputation. Patient on antibiotics and blood thinner. Encourage and attempt transfers to chair with therapy. incentive spirometer Subjective Subjective Date/Time Seen: 06/24/20 08:54 Awake and alert. More oriented this morning. No new complaints. Exam Const: General: healthy appearing; No in distress or confusion Orientation/consciousness: oriented to person, oriented to place, oriented to time and No confusion HENMT: Head: normal to inspection, normocephalic and atraumatic Eyes: Conjunctivae: conjunctivae normal Sclera: sclerae normal Neck: Neck: supple and nontender Resp: Effort & Inspection: normal respiratory effort and no audible wheezes Cardio: Rate: regular rate Rhythm: regular rhythm Skin: General skin exam: no rashes or lesions noted Neuro: General: oriented to person, oriented to place, oriented to time and No confusion Extrem: Right upper extremity: normal to inspection Left upper extremity: normal to inspection Right lower extremity: edema Details: pitting and 3+, hip/thigh Details: no tenderness, knee Details: swelling Location: of the proximal fibula (Moderate) and of the proximal tibia Details: along the midline (Moderate) and abnormal ROM Details: with range as follows (No active motion knee, ankle, foot or toes); no tenderness, lower leg Details: ecchymosis (Proximal to mid lower leg) and other (Moderate swelling from the knee to the ankle. Small dime-sized skin eschar over the anterior proximal tibia- unable to probe below dermis-improved healing. No erythema. No signs of infection.) and foot Details: edema Location: of the dorsal foot (Moderate), vascular exam Details: abnormal capillary refill Location: of all toes and other (Skin over the foot and toes intact.); dorsalis pedis pulse absent and posterior tibial pulse absent and motor-sensory exam Details: light-touch abnormal Location: in all toes; no tenderness Left lower extremity: hip/thigh (Above knee amputation with well-healed incision. No erythema. Muscle soft) Details: no tenderness Other: Right lower leg with continued swelling improved. Knee immobilizer repositioned. Skin less tense in the distal leg/muscle soft. No erythema. Extensive ecchymosis at the proximal extent of the leg With slight improvement. Some wrinkling of the skin and skin peeling at the ankle. Right foot warm, no signs of necrosis or ischemia. Psych: Affect: normal affect Objective Data Vital Signs Vital Signs: Vital Signs - 24 hr 06/23/20 10:46 06/23/20 11:00 06/23/20 11:32 Temperature Pulse Rate 80 80 Respiratory Rate 20 20 Blood Pressure Pulse Oximetry 96 91 06/23/20 14:45 06/23/20 15:00 06/23/20 16:08 Temperature 97.7 F Pulse Rate 80
--- NOTE | 2020-06-24 10:11 | PM.PNCARD ---
Progress Note: A&P Assessment and Plan (1) Elevated troponin: Code(s): R77.8 - Other specified abnormalities of plasma proteins Status: Acute Assessment and Plan: likely related of rhabdo (2) Rhabdomyolysis: Code(s): M62.82 - Rhabdomyolysis Status: Acute Assessment and Plan: secondary to fall (3) Wide-complex tachycardia: Code(s): I47.2 - Ventricular tachycardia Status: Acute Assessment and Plan: continue metoprolol (4) Tobacco abuse: Code(s): Z72.0 - Tobacco use Status: Acute (5) Fracture, tibia and fibula, proximal: Qualifiers: Encounter type: subsequent encounter Fracture healing: with routine healing Fracture type: closed Laterality: right Qualified Code(s): S82.101D - Unspecified fracture of upper end of right tibia, subsequent encounter for closed fracture with routine healing; S82.831D - Other fracture of upper and lower end of right fibula, subsequent encounter for closed fracture with routine healing Code(s): S82.109A - Unspecified fracture of upper end of unspecified tibia, initial encounter for closed fracture; S82.839A - Other fracture of upper and lower end of unspecified fibula, initial encounter for closed fracture Status: Acute Assessment and Plan: per Ortho (6) Volume overload: Code(s): E87.70 - Fluid overload, unspecified Status: Acute Assessment and Plan: Repeat portable lateral chest x-ray tomorrow. Continue IV diuretics. Repeat basic metabolic panel morning Subjective Date/time seen: 06/24/20 10:11 Interval history: reason for admission: Broken leg Date of service 06/24/2020: No chest pain. his breathing is better. Review of Systems Review of Systems: All systems reviewed & are unremarkable except as noted in HPI and below Constitutional: Constitutional: Denies fatigue, Denies headache(s) and Denies weakness Eyes: Eyes: Denies blurry vision ENT: Reports Normal hearing present, Denies headache(s) and Denies neck pain Cardiovascular: Cardiovascular: Denies chest pain and Reports dyspnea Respiratory: Respiratory: Reports dyspnea Gastrointestinal: Gastrointestinal: Denies abdominal pain Genitourinary: Genitourinary: Denies dysuria Musculoskeletal: Musculoskeletal: Denies neck pain Integumentary/Breasts: Skin/Breast: Reports dry skin and Reports unusual bruising Neurologic: Reports Normal hearing present, Denies headache(s) and Denies weakness Psychiatric: Psychiatric: Denies anxiety Endocrine: Endocrine: Denies fatigue Hematologic/Lymphatic: Hematologic/Lymphatic: Denies easy bleeding Allergic/Immunologic: Allergic/Immunologic: Denies GI upset with certain foods Exam Narrative: Exam Narrative: patient awake alert oriented and appears to be in no acute distress Const: General: comfortable and no acute distress HENMT: General nose exam: Normal nares present Eyes: Sclera: sclerae normal Neck: Neck: supple and no JVD Chest: Other: no reproducible chest wall pain to palpation Resp: Auscultation: clear to auscultation bilaterally Cardio: Rate: regular rate Rhythm: regular rhythm Urinary Catheter: Urinary Catheter: patent and draining Skin: Other: significant bruising /redness is noted in right lower extremity Neuro: Cranial nerves: Yes Normal hearing present Cognition (Neuro): normal cognition Speech: normal speech Extrem: General: edema and pedal edema Other: left leg amputation Psych: Mental Status: mental status grossly normal Objective Data Vital Signs Vital Signs: Vital Signs - 24 hr 06/23/20 10:46 06/23/20 11:00 06/23/20 11:32 Temperature Pulse Rate 80 80 Respiratory Rate 20 20 Blood Pressure Pulse Oximetry 96 91 06/23/20 14:45 06/23/20 15:00 06/23/20 16:08 Temperature 36.5 C Pulse Rate 80 80 Respiratory Rate 21 H 21 H Blood Pressure 80/38 L 130/80 Pulse Oximetry 97 97 06/23
--- NOTE | 2020-06-24 10:55 | PM.CNPUL ---
Assessment and Plan Assessment and plan (1) Acute and chronic respiratory failure with hypercapnia: Code(s): J96.22 - Acute and chronic respiratory failure with hypercapnia Status: Acute Assessment and Plan: likely due to combination of mostly ALE/OHS and maybe some COPD but the COPD does not seem sever enough to playing a significant role here. Narcotics may exacerbate this - will need to repeat overnight pulse oximetry on 2 liters nasal cannula tonight to see if he qualifies for BIPAP, Otherwise he will need to have an outpatient sleep study and titrated either on CPAP or BIPAP. - I don't beleive he's a good candidate for Trilogy at this point. CPAP or BIPAP may be sufficient along with treating underlying COPD and avoiding narcotics and sedatives History of Present Illness History of Present Illness Consult date: 06/24/20 Chief complaint: COPD exacerbation, Tibia/Fibula fracture, Narrative: I was asked to see this patient for hypercapnia. He is a 59 y/o obese male, chronic smoker with h/o left AKA, recent fall and tibia fracture to RLL, possible cirrhosis. He was found to be lethargic with blood gases showing acute on chronic hypercapnic respiratory failure. Baseline PCO2 appears to be around 50. He has 40+ pack year smoking history denies excessive alcohol use. He does get short of breath at rest with some tightness and wheezing but denies struggling to breath or frequent episodes of respiratory failure or respiratory infections. He currently denies productive cough, fevers chills or night sweats. CT chest done on admission shows some atelectesis on the right but no pneumonia or PE or CHF. He does feel tired and sleep during the day but lives alone at home so no one to provide snoring or apnea history while asleep. Review of Systems Review of Systems: All systems reviewed & are unremarkable except as noted in HPI and below PMFSH Past Medical History Medical History (Updated 06/24/20 @ 11:09 by Darnell Menendez MD) Cirrhosis History of left above knee amputation Increased ammonia level Paraplegia Peripheral arterial disease Surgical History Surgical History History of spinal fusion T12 metal tyler Family History Family History Mother No problems noted. Father , from COVID19 02/2020 No problems noted. Grandparent , heart disease Acute myocardial infarction Heart disease Other Unknown family medical history Social History Social History Social History: drives with hand control. Lives alone, independent. Wheelchair bound. plays in 2 bands. Smoking packs per day: 0.5 Smoking cigarettes per day: 10.0 Years smoked: 45 Smoking pack-years: 22.50 Smoking status: Current every day smoker Alcohol intake: current Alcohol use details: Seldom Substance use: never Living arrangements: alone Gender identity (if verbalized by the patient): Male Spiritual care concerns: No Meds Home Medications and Allergies Home Medications Medication Instructions Recorded Confirmed Type No Home Medications 06/16/20 06/16/20 History Allergies Allergy/AdvReac Type Severity Reaction Status Date / Time No Known Allergies Allergy Verified 06/16/20 11:48 Vital Signs Vital Signs - 24 hr 06/23/20 11:00 06/23/20 11:32 06/23/20 14:45 Temperature 36.5 C Pulse Rate 80 80 Respiratory Rate 20 21 H Blood Pressure 80/38 L Pulse Oximetry 91 97 06/23/20 15:00 06/23/20 16:08 06/23/20 16:45 Temperature Pulse Rate 80 Respiratory Rate 21 H Blood Pressure 130/80 Pulse Oximetry 97 92 06/23/20 16:47 06/23/20 16:58 06/23/20 20:00 Temperature Pulse Rate 85 88 Respiratory Rate 20 20 Blood Pressure Pulse Oximetry 97 06/23/20 20:14 06/23/20 21:08 12
--- NOTE | 2020-06-24 11:00 | PCNWS ---
Weekly nutritional screen. Patient is tolerating current diet with adequate intake. No weight loss reported. No nutritional needs at this time.
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
[2020-06-24 11:50] LABS: Glucose Point of Care 139 (65-105)
[2020-06-24] MEDS: ALBUTEROL SULFATE NEB 2.5 MG/0.5 ML INH INHALATION ×2 (13:17→20:41)
[2020-06-24] MEDS: BISACODYL 10 MG SUPPOSITORY RECTAL (13:19)
--- NOTE | 2020-06-24 14:20 | WPDGIPROGNO ---
Progress Note: A&P Assessment and Plan (1) Cirrhosis: Code(s): K74.60 - Unspecified cirrhosis of liver Status: Acute Assessment and Plan: CT scan showed cirrhosis, portal hypertension and splenomegaly work up of cirrhosis pending ? ELLIOTT we can do EGD as outpatient to check if PHG, varices, etc Ct scan also noted mesenteric inflammation and covered with antibiotics (treated also for UTI), blood cultures no growth (2) Encephalopathy: Code(s): G93.40 - Encephalopathy, unspecified Status: Acute Assessment and Plan: multifactorial from co2 retention, also liver encephalopathy (on lactulose and recently also started on xifaxan) (3) Elevated LFTs: Code(s): R79.89 - Other specified abnormal findings of blood chemistry Status: Acute Assessment and Plan: from liver cirrhosis (4) Increased ammonia level: Code(s): R79.89 - Other specified abnormal findings of blood chemistry Status: Acute Assessment and Plan: continue with lactulose and titrate to 2-3 BM a day also xifaxan (5) Fracture, tibia and fibula, proximal: Qualifiers: Encounter type: subsequent encounter Fracture healing: with routine healing Fracture type: closed Laterality: right Qualified Code(s): S82.101D - Unspecified fracture of upper end of right tibia, subsequent encounter for closed fracture with routine healing; S82.831D - Other fracture of upper and lower end of right fibula, subsequent encounter for closed fracture with routine healing Code(s): S82.109A - Unspecified fracture of upper end of unspecified tibia, initial encounter for closed fracture; S82.839A - Other fracture of upper and lower end of unspecified fibula, initial encounter for closed fracture Status: Acute Assessment and Plan: ortho on board but medical management (6) Thrombocytopenia: Code(s): D69.6 - Thrombocytopenia, unspecified Status: Acute Assessment and Plan: probably from cirrhosis, stable (7) Paraplegia: Code(s): G82.20 - Paraplegia, unspecified Status: Acute Subjective Date/time seen: 06/24/20 14:20 Interval history: he is more alert today, breathing better Review of Systems Review of Systems: All systems reviewed & are unremarkable except as noted in HPI and below Exam Const: General: comfortable and ill appearing chronically HENMT: Head: normal to inspection, normocephalic and atraumatic General nose exam: Normal nares present Eyes: Conjunctivae: conjunctivae normal Sclera: sclerae normal Neck: Neck: supple and nontender Resp: Effort & Inspection: no audible wheezes Auscultation: diminished lung sounds Cardio: Rate: regular rate Rhythm: regular rhythm GI: Inspection: non-distended GI Palp: Yes Soft to palpation Auscultation: normal bowel sounds Other: obese Urinary Catheter: Urinary Catheter: patent and draining Skin: General skin exam: no jaundice Neuro: General: oriented to person, oriented to place, oriented to time and No confusion Other: paraplegic Extrem: Right upper extremity: normal to inspection Left upper extremity: normal to inspection Right lower extremity: lower leg Details: other (Moderate swelling from the knee to the ankle.) Other: left AKA Psych: Affect: normal affect Objective Data Vital Signs Vital Signs: Vital Signs - 24 hr 06/23/20 14:45 06/23/20 15:00 06/23/20 16:08 Temperature 97.7 F Pulse Rate 80 80 Respiratory Rate 21 H 21 H Blood Pressure 80/38 L 130/80 Pulse Oximetry 97 97 06/23/20 16:45 06/23/20 16:47 06/23/20 16:58 Temperature Pulse Rate 85 88 Respiratory Rate 20 20 Blood Pressure Pulse Oximetry 92 06/23/20 20:00 06/23/20 20:14 06/23/20 21:08 Temperature Pulse Rate 90 96 Respiratory Rate 24 H Blood Pressure Pulse Oximetry 97 90 06/23/20 21:16 06/23/20 21:51 06/23/20 22:22 Temperature 97.3 F L Pulse Rate 85 100 82 Respiratory R
[2020-06-24 16:40] LABS: Glucose Point of Care 139 (65-105)
[2020-06-24 20:53] LABS: Glucose Point of Care 128 (65-105)
[2020-06-25] VITALS (13 sets, daily range): BP systolic 108–121; BP diastolic 48–57; PULSE 78–115; RESP 20–22; TEMP 36.1–36.6; O2SAT 92–97
[2020-06-25] LABS: Ceruloplasmin 32 mg/dL (18-36)
[2020-06-25 06:06] LABS: Basophils Percent Auto 0.6 % (0.2-1.2); Eosinophils Absolute Auto 0.2 K/mm3 (0-0.3); Hematocrit 31.3 % (42.0-52.0); Hemoglobin 9.4 g/dL (14.0-18.0); Immature Granulocyte Absolute 0.11 K/mm3 (0.00-0.031); Immature Granulocyte Percent A 1.7 % (0-0.5); Lymphocytes Absolute Auto 0.66 K/mm3 (0.9-3.2); Lymphocytes Percent Auto 9.9 % (18.3-44.2); Mean Corpuscular Hemoglobin 29.2 pg (26-34); Mean Corpuscular Volume 97.2 fl (80-100); Monocytes Absolute Auto 0.8 K/mm3 (0.1-0.6); Monocytes Percent Auto 12.5 % (2.6-8.5); Neutrophils Absolute Auto 4.8 K/mm3 (1.3-6.7); Neutrophils Percent Auto 72.3 % (45.5-73.1); Platelet Count Result 180 k/mm3 (150-375); Red Blood Count 3.22 M/mm3 (4.6-6.20); Red Cell Distribution Width 15.9 % (11.5-14.5); White Blood Count 6.6 K/mm3 (4.5-10.0)
[2020-06-25 06:33] LABS: Alanine Aminotransferase 51 U/L (4-50); Albumin Level 2.9 g/dL (3.5-5.1); Alkaline Phosphatase 141 U/L (38-126); Aspartate Amino Transferase 98 U/L (17-59); Blood Urea Nitrogen 14 mg/dL (9-20); Calcium 7.9 mg/dL (8.4-10.2); Carbon Dioxide > 40 mmol/L (22-30); Chloride 93 mmol/L (98-107); Estimated CRCL calculation 177 ml/min; Estimated Glomerular Filt Rate > 60; Glucose 130 mg/dL (75-110); Magnesium 2.1 mg/dL (1.6-2.3); Potassium 4.2 mmol/L (3.4-5.0); Sodium 134 mmol/L (137-145)
[2020-06-25 07:03] LABS: Creatine Kinase 1037 U/L (55-170)
--- NOTE | 2020-06-25 07:26 | PCRCNOTE ---
The patient removed the apnea monitor before the study was complete; It was on the floor when RT arrived to remove the monitor.
[2020-06-25] MEDS: ALBUTEROL SULFATE NEB 2.5 MG/0.5 ML INH INHALATION ×3 (08:16→21:23)
[2020-06-25 08:24] LABS: Glucose Point of Care 144 (65-105)
[2020-06-25] MEDS: METOPROLOL TARTRATE 25 MG TABLET PO ×2 (08:28→20:27)
[2020-06-25] MEDS: ASPIRIN 81 MG CHEWABLE TABLET PO (08:28)
[2020-06-25] MEDS: FUROSEMIDE INJ 40 MG/4 ML VIAL IV PUSH ×2 (08:29→17:15)
[2020-06-25] MEDS: PANTOPRAZOLE 40 MG TABLET PO (08:29)
[2020-06-25] MEDS: FERROUS SULFATE 324 MG TABLET PO ×2 (08:29→17:16)
[2020-06-25] MEDS: rifAXIMin 550 MG TABLET PO ×2 (08:29→20:27)
[2020-06-25] MEDS: NICOTINE (*PBKC) 14 MG PATCH 1 PATCH TRANSDERM (08:29)
[2020-06-25] MEDS: APIXABAN 2.5 MG TABLET PO ×2 (08:30→20:26)
--- NOTE | 2020-06-25 09:15 | PM.PNCARD ---
Progress Note: A&P Assessment and Plan (1) Elevated troponin: Code(s): R77.8 - Other specified abnormalities of plasma proteins Status: Acute Assessment and Plan: likely related of rhabdo (2) Rhabdomyolysis: Code(s): M62.82 - Rhabdomyolysis Status: Acute Assessment and Plan: secondary to fall (3) Wide-complex tachycardia: Code(s): I47.2 - Ventricular tachycardia Status: Acute Assessment and Plan: continue metoprolol (4) Tobacco abuse: Code(s): Z72.0 - Tobacco use Status: Acute (5) Fracture, tibia and fibula, proximal: Qualifiers: Encounter type: subsequent encounter Fracture healing: with routine healing Fracture type: closed Laterality: right Qualified Code(s): S82.101D - Unspecified fracture of upper end of right tibia, subsequent encounter for closed fracture with routine healing; S82.831D - Other fracture of upper and lower end of right fibula, subsequent encounter for closed fracture with routine healing Code(s): S82.109A - Unspecified fracture of upper end of unspecified tibia, initial encounter for closed fracture; S82.839A - Other fracture of upper and lower end of unspecified fibula, initial encounter for closed fracture Status: Acute Assessment and Plan: per Ortho (6) Volume overload: Code(s): E87.70 - Fluid overload, unspecified Status: Acute Assessment and Plan: Chest x-ray better. Will reduce his furosemide down to 40 mg IV daily. Subjective Date/time seen: 06/25/20 09:15 Interval history: reason for admission: Broken leg Date of service 06/25/2020: No chest pain. his breathing is better. Wants to go home Review of Systems Review of Systems: All systems reviewed & are unremarkable except as noted in HPI and below Constitutional: Constitutional: Denies fatigue, Denies headache(s) and Denies weakness Eyes: Eyes: Denies blurry vision ENT: Reports Normal hearing present, Denies headache(s) and Denies neck pain Cardiovascular: Cardiovascular: Denies chest pain and Reports dyspnea Respiratory: Respiratory: Reports dyspnea Gastrointestinal: Gastrointestinal: Denies abdominal pain Genitourinary: Genitourinary: Denies dysuria Musculoskeletal: Musculoskeletal: Denies neck pain Integumentary/Breasts: Skin/Breast: Reports dry skin and Reports unusual bruising Neurologic: Reports Normal hearing present, Denies headache(s) and Denies weakness Psychiatric: Psychiatric: Denies anxiety Endocrine: Endocrine: Denies fatigue Hematologic/Lymphatic: Hematologic/Lymphatic: Denies easy bleeding Allergic/Immunologic: Allergic/Immunologic: Denies GI upset with certain foods Exam Narrative: Exam Narrative: patient awake alert oriented and appears to be in no acute distress Const: General: comfortable and no acute distress HENMT: General nose exam: Normal nares present Eyes: Sclera: sclerae normal Neck: Neck: supple and no JVD Chest: Other: no reproducible chest wall pain to palpation Resp: Auscultation: clear to auscultation bilaterally Cardio: Rate: regular rate Rhythm: regular rhythm Urinary Catheter: Urinary Catheter: patent and draining Skin: Other: significant bruising /redness is noted in right lower extremity Neuro: Cranial nerves: Yes Normal hearing present Cognition (Neuro): normal cognition Speech: normal speech Extrem: General: edema and pedal edema Other: left leg amputation Psych: Mental Status: mental status grossly normal Objective Data Vital Signs Vital Signs: Vital Signs - 24 hr 06/24/20 13:17 06/24/20 13:27 06/24/20 15:01 Temperature 36.8 C Pulse Rate 84 89 88 Respiratory Rate 18 18 23 H Blood Pressure 94/46 L Pulse Oximetry 97 06/24/20 20:00 06/24/20 20:36 06/24/20 20:41 Temperature Pulse Rate 103 H 100 Respiratory Rate 26 H Blood Pressure Pulse Oximetry 96 89 L 06/24/20 20:50 06/24/20
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
[2020-06-25 12:10] LABS: Glucose Point of Care 149 (65-105)
[2020-06-25] MEDS: SPIRONOLACTONE 25 MG TABLET PO (12:25)
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
[2020-06-25] MEDS: SODIUM PHOSPHATE 20 MM in DEXTROSE 5% IN WATER 250 ML 32.08 MM IVPB (13:09)
[2020-06-25] MEDS: IPRATROPIUM BR 0.02% INH SOLN 0.5 MG/2.5 ML VIAL INHALATION ×3 (14:25→21:23)
[2020-06-25 14:29] LABS: Vancomycin Trough 9.2 ug/mL (10.0-20.0)
--- NOTE | 2020-06-25 15:51 | PM.PNPUL ---
Progress Note: A&P Assessment and Plan (1) Acute and chronic respiratory failure with hypercapnia: Code(s): J96.22 - Acute and chronic respiratory failure with hypercapnia Status: Acute Assessment and Plan: likely due to combination of mostly ALE/OHS and maybe some COPD but the COPD does not seem severe enough to play a significant role here. Narcotics may exacerbate this - Start Symbicort 160/4.5 two puffs b.i.d for baseline control; has on going wheezes - His ApneaLink on 1 L/min O2 shows moderate ALE with significant centrals and severe hypoxemia, 144 minutes below 88% while using 1 L/min. He is not on O2 at home. He still has hypercapnia even BIPAP; will continue to Rx COPD and avoiding narcotics and sedatives - may be a candidate for NIV at home, which we will investigate while he is here - he says that he is willing to follow up for ongoing care in our pulmonary office. - His primary is Dr. Gaytan who he rarely visits, once every 3 years. (2) Tobacco abuse: Code(s): Z72.0 - Tobacco use Status: Acute Assessment and Plan: - smoked a half pack a day until admission, and smokes marijuana several puffs before bed at night to assist with sleep - recommend edible marijuana; burning vegetation then inhaling is not recommended (3) COPD exacerbation: Code(s): J44.1 - Chronic obstructive pulmonary disease with (acute) exacerbation Status: Acute Assessment and Plan: - contributing to his overall respiratory failure - may not be the largest component, still a factor Subjective Date/time seen: 06/25/20 15:51 This 59 year old man is seen in follow up for acute and chronic respiratory failure with hypercapnea. Feels much better He had the ApneaLink device on overnight, with 4 hours11 minutes of evaluation time which is sufficient. He has sleep disordered breathing with apnea hypopnea index 20; 13 obstructive apneas, 4 centrals, 2 mixed apneas; lowest desaturation 73%, 143 minutes spent below 88% while wearing O2 at 1 L/min. He does not wear O2 at home normally. He smoked tobacco a half pack a day until admission and smokes marijuana before bed to fall asleep. I am advising him to get marijuana edibles and not smoke as he has COPD, chronic respiratory failure Review of Systems Review of Systems: All systems reviewed & are unremarkable except as noted in HPI and below Exam Const: General: cooperative, healthy appearing, comfortable, no acute distress, well developed, alert, awake and Physically active Orientation/consciousness: oriented to person, oriented to place, oriented to time and patient oriented x3 HENMT: Head: normal to inspection, normocephalic and atraumatic Eyes: General: appearance normal, both eyes and all related structures Neck: Neck: trachea midline and supple Resp: Effort & Inspection: normal respiratory effort and able to speak in complete sentences Auscultation: wheezes expiratory wheezes and scattered wheezes and diminished lung sounds Cardio: Jugular venous distension: no JVD Rate: regular rate Rhythm: regular rhythm Heart sounds: S1 normal heart sound present, S2 normal heart sound present and no murmurs GI: Inspection: Abdominal wall edema Auscultation: normal bowel sounds Skin: Other: scattered echmosis Neuro: General: oriented to person, oriented to place, oriented to time and patient oriented x3 Cognition (Neuro): normal cognition Extrem: Left lower extremity: abnormal to inspection (amputation left leg) Psych: Appearance: grossly normal Mental Status: mental status grossly normal Objective Data Vital Signs Vital Signs: Vital Signs - 24 hr 06/24/20 20:00 06/24/20 20:36 06/24/20 20:41 Temperature Pulse Rate 103 H 100 Respir
[2020-06-25] MEDS: LACTULOSE 20 GM/30 ML UDC PO (17:15)
[2020-06-25] MEDS: ACETAMINOPHEN 325 MG TABLET 650 MG PO (20:28)
[2020-06-25] MEDS: CYCLOBENZAPRINE HCL 5 MG TABLET PO (20:29)
[2020-06-26] VITALS (14 sets, daily range): BP systolic 106–124; BP diastolic 45–69; PULSE 72–89; RESP 15–20; TEMP 36.3–36.7; O2SAT 69–97
[2020-06-26] MEDS: IPRATROPIUM BR 0.02% INH SOLN 0.5 MG/2.5 ML VIAL INHALATION ×4 (03:33→19:52)
[2020-06-26] MEDS: ALBUTEROL SULFATE NEB 2.5 MG/0.5 ML INH INHALATION ×4 (03:33→19:51)
[2020-06-26 06:07] LABS: Basophils Absolute Auto 0.1 K/mm3 (0.0-0.1); Basophils Percent Auto 1.1 % (0.2-1.2); Eosinophils Absolute Auto 0.4 K/mm3 (0-0.3); Eosinophils Percent Auto 6.1 % (0-4.4); Hematocrit 32.3 % (42.0-52.0); Hemoglobin 9.5 g/dL (14.0-18.0); Immature Granulocyte Absolute 0.11 K/mm3 (0.00-0.031); Immature Granulocyte Percent A 1.7 % (0-0.5); Lymphocytes Absolute Auto 0.83 K/mm3 (0.9-3.2); Lymphocytes Percent Auto 12.7 % (18.3-44.2); Mean Corpuscular HGB Conc 29.4 g/dl (32-36); Mean Corpuscular Hemoglobin 29.1 pg (26-34); Mean Corpuscular Volume 98.8 fl (80-100); Mean Platelet Volume 10.7 fl (7.4-10.4); Monocytes Absolute Auto 0.7 K/mm3 (0.1-0.6); Monocytes Percent Auto 11.2 % (2.6-8.5); Neutrophils Absolute Auto 4.4 K/mm3 (1.3-6.7); Neutrophils Percent Auto 67.2 % (45.5-73.1); Platelet Count Result 191 k/mm3 (150-375); Red Blood Count 3.27 M/mm3 (4.6-6.20); Red Cell Distribution Width 16.3 % (11.5-14.5); White Blood Count 6.5 K/mm3 (4.5-10.0)
[2020-06-26 06:34] LABS: Blood Urea Nitrogen 12 mg/dL (9-20); Carbon Dioxide > 40 mmol/L (22-30); Chloride 91 mmol/L (98-107); Creatine Kinase 870 U/L (55-170); Estimated CRCL calculation 178 ml/min; Estimated Glomerular Filt Rate > 60; Glucose 130 mg/dL (75-110); Phosphorus 2.3 mg/dL (2.5-4.5); Potassium 3.9 mmol/L (3.4-5.0); Sodium 133 mmol/L (137-145)
[2020-06-26 06:50] LABS: Hypochromasia 1+ (NORMAL); Platelet Estimate Adequate (Adequate)
[2020-06-26] MEDS: rifAXIMin 550 MG TABLET PO ×2 (09:49→20:47)
[2020-06-26] MEDS: FERROUS SULFATE 324 MG TABLET PO ×2 (09:50→17:51)
[2020-06-26] MEDS: SPIRONOLACTONE 25 MG TABLET PO (09:50)
[2020-06-26] MEDS: BENZONATATE 100 MG CAPSULE 200 MG PO (09:50)
[2020-06-26] MEDS: ASPIRIN 81 MG CHEWABLE TABLET PO (09:50)
[2020-06-26] MEDS: NICOTINE (*PBKC) 14 MG PATCH 1 PATCH TRANSDERM (09:51)
[2020-06-26] MEDS: PANTOPRAZOLE 40 MG TABLET PO (09:51)
[2020-06-26] MEDS: APIXABAN 2.5 MG TABLET PO ×2 (09:51→20:47)
[2020-06-26] MEDS: METOPROLOL TARTRATE 25 MG TABLET PO ×2 (09:52→20:49)
[2020-06-26] MEDS: FUROSEMIDE INJ 40 MG/4 ML VIAL IV PUSH (09:52)
[2020-06-26] MEDS: LACTULOSE 20 GM/30 ML UDC PO ×2 (09:52→17:51)
--- NOTE | 2020-06-26 09:57 | WPDGIPROGNO ---
Progress Note: A&P Assessment and Plan (1) Cirrhosis: Code(s): K74.60 - Unspecified cirrhosis of liver Status: Acute Assessment and Plan: CT scan showed cirrhosis, portal hypertension and splenomegaly work up of cirrhosis with negative sharee, ama and hepatitis panel. Probably rasmussen he can see me in office in 4-5 weeks and then we can discuss about EGD as outpatient to check if PHG, varices, etc he also will need imaging of liver every 6 months for hcc surveillance. on lasix because edema (2) Encephalopathy: Code(s): G93.40 - Encephalopathy, unspecified Status: Acute Assessment and Plan: multifactorial from co2 retention, also liver encephalopathy complaining of stool incontinence thus will decrease frequency of lactulose and continue with xifaxan (3) Elevated LFTs: Code(s): R79.89 - Other specified abnormal findings of blood chemistry Status: Acute Assessment and Plan: from liver cirrhosis (4) Increased ammonia level: Code(s): R79.89 - Other specified abnormal findings of blood chemistry Status: Acute Assessment and Plan: continue with lactulose and titrate to only 2-3 BM a day also xifaxan (5) Fracture, tibia and fibula, proximal: Qualifiers: Encounter type: subsequent encounter Fracture healing: with routine healing Fracture type: closed Laterality: right Qualified Code(s): S82.101D - Unspecified fracture of upper end of right tibia, subsequent encounter for closed fracture with routine healing; S82.831D - Other fracture of upper and lower end of right fibula, subsequent encounter for closed fracture with routine healing Code(s): S82.109A - Unspecified fracture of upper end of unspecified tibia, initial encounter for closed fracture; S82.839A - Other fracture of upper and lower end of unspecified fibula, initial encounter for closed fracture Status: Acute Assessment and Plan: ortho on board but medical management (6) Thrombocytopenia: Code(s): D69.6 - Thrombocytopenia, unspecified Status: Acute Assessment and Plan: probably from cirrhosis, stable (7) Paraplegia: Code(s): G82.20 - Paraplegia, unspecified Status: Acute Subjective Date/time seen: 06/26/20 09:57 Interval history: complaining of more swelling in scrotal area Review of Systems Review of Systems: All systems reviewed & are unremarkable except as noted in HPI and below Exam Const: General: comfortable and ill appearing chronically HENMT: Head: normal to inspection, normocephalic and atraumatic General nose exam: Normal nares present Eyes: Conjunctivae: conjunctivae normal Sclera: sclerae normal Neck: Neck: supple and nontender Resp: Effort & Inspection: no audible wheezes Auscultation: diminished lung sounds Cardio: Rate: regular rate Rhythm: regular rhythm GI: Inspection: non-distended GI Palp: Yes Soft to palpation Auscultation: normal bowel sounds Other: obese : Other: scrotal area edema Urinary Catheter: Urinary Catheter: patent and draining Skin: General skin exam: no jaundice Neuro: General: oriented to person, oriented to place, oriented to time and No confusion Other: paraplegic Extrem: Right upper extremity: normal to inspection Left upper extremity: normal to inspection Right lower extremity: lower leg Details: other (Moderate swelling from the knee to the ankle.) Other: left AKA Psych: Affect: normal affect Objective Data Vital Signs Vital Signs: Vital Signs - 24 hr 06/25/20 13:51 06/25/20 14:25 06/25/20 14:35 Temperature 97.9 F Pulse Rate 81 95 96 Respiratory Rate 20 20 20 Blood Pressure 108/48 L Pulse Oximetry 97 06/25/20 20:00 06/25/20 20:27 06/25/20 21:28 Temperature Pulse Rate 115 H 78 Respiratory Rate 20 Blood Pressure Pulse Oximetry 95 94 06/25/20 21:29 06/25/20 23:00 06/26/20 03:34 Temperature 97.7 F Pulse Rate 78 78 74 Respi
--- NOTE | 2020-06-26 10:33 | PM.PNCARD ---
Progress Note: A&P Assessment and Plan (1) Elevated troponin: Code(s): R77.8 - Other specified abnormalities of plasma proteins Status: Acute Assessment and Plan: likely related of rhabdo (2) Rhabdomyolysis: Code(s): M62.82 - Rhabdomyolysis Status: Acute Assessment and Plan: secondary to fall (3) Wide-complex tachycardia: Code(s): I47.2 - Ventricular tachycardia Status: Acute Assessment and Plan: continue metoprolol (4) Tobacco abuse: Code(s): Z72.0 - Tobacco use Status: Acute (5) Fracture, tibia and fibula, proximal: Qualifiers: Encounter type: subsequent encounter Fracture healing: with routine healing Fracture type: closed Laterality: right Qualified Code(s): S82.101D - Unspecified fracture of upper end of right tibia, subsequent encounter for closed fracture with routine healing; S82.831D - Other fracture of upper and lower end of right fibula, subsequent encounter for closed fracture with routine healing Code(s): S82.109A - Unspecified fracture of upper end of unspecified tibia, initial encounter for closed fracture; S82.839A - Other fracture of upper and lower end of unspecified fibula, initial encounter for closed fracture Status: Acute Assessment and Plan: per Ortho (6) Volume overload: Code(s): E87.70 - Fluid overload, unspecified Status: Acute Assessment and Plan: Will increase his furosemide to 60 mg IV q.12 hours times 1-2 days. He has significant scrotal edema and still has swelling. Will need to follow basic metabolic panel P. He also is several liters positive as compared to admission.. Subjective Date/time seen: 06/26/20 10:33 Interval history: reason for admission: Broken leg Date of service 06/26/2020: No chest pain. his breathing is better. Has scrotal edema Review of Systems Review of Systems: All systems reviewed & are unremarkable except as noted in HPI and below Constitutional: Constitutional: Denies fatigue, Denies headache(s) and Denies weakness Eyes: Eyes: Denies blurry vision ENT: Reports Normal hearing present, Denies headache(s) and Denies neck pain Cardiovascular: Cardiovascular: Denies chest pain and Reports dyspnea Respiratory: Respiratory: Reports dyspnea Gastrointestinal: Gastrointestinal: Denies abdominal pain Genitourinary: Genitourinary: Denies dysuria Musculoskeletal: Musculoskeletal: Denies neck pain Integumentary/Breasts: Skin/Breast: Reports dry skin and Reports unusual bruising Neurologic: Reports Normal hearing present, Denies headache(s) and Denies weakness Psychiatric: Psychiatric: Denies anxiety Endocrine: Endocrine: Denies fatigue Hematologic/Lymphatic: Hematologic/Lymphatic: Denies easy bleeding Allergic/Immunologic: Allergic/Immunologic: Denies GI upset with certain foods Exam Narrative: Exam Narrative: patient awake alert oriented and appears to be in no acute distress Const: General: comfortable and no acute distress HENMT: General nose exam: Normal nares present Eyes: Sclera: sclerae normal Neck: Neck: supple and no JVD Chest: Other: no reproducible chest wall pain to palpation Resp: Auscultation: clear to auscultation bilaterally Cardio: Rate: regular rate Rhythm: regular rhythm : Other: Scrotal edema noted Urinary Catheter: Urinary Catheter: patent and draining Skin: Other: significant bruising /redness is noted in right lower extremity Neuro: Cranial nerves: Yes Normal hearing present Cognition (Neuro): normal cognition Speech: normal speech Extrem: General: edema and pedal edema Other: left leg amputation Psych: Mental Status: mental status grossly normal Objective Data Vital Signs Vital Signs: Vital Signs - 24 hr 06/25/20 13:51 06/25/20 14:25 06/25/20 14:35 Temperature 36.6 C Pulse Rate 81 95 96 Respiratory Rate 20 20 20 Blood Pressure 108/48 L Pulse Oxim
--- NOTE | 2020-06-26 11:58 | PCPTNOTE ---
Patient refused treatment this session due to fatigue. Attempted to see patient at 11:25, however patient refused. Patient stated, I can't right now, I'm exhausted. Will attempt to see patient at a later time as appropriate. Niurka Amador, TEASEL SETTER
--- NOTE | 2020-06-26 12:38 | PCPTNOTE ---
Patient refused treatment this session due to fatigue. Attempted a second time to see patient at 12:35, however patient continues to refuse due to fatigue. Will attempt tomorrow as appropriate. Niurka Amador, FIRER [employer]
[2020-06-26] MEDS: metOLazone 2.5 MG TABLET PO (12:49)
[2020-06-26] MEDS: POTASSIUM PHOS,M-BASIC-D-BASIC 20 MMOL in SODIUM CHLORIDE 0.9% IV 250 ML 64 MMOL IVPB (12:49)
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
[2020-06-26] MEDS: FUROSEMIDE INJ 100 MG/10 ML VIAL 60 MG IV PUSH (17:50)
[2020-06-26] MEDS: DIPHENHYDRAMINE 1%/ZINC 0.1% CREAM 30 GM TUBE 1 APPLIC TOPICAL (17:51)
[2020-06-26] MEDS: ACETAMINOPHEN 325 MG TABLET 650 MG PO ×2 (18:05→22:27)
[2020-06-26] MEDS: CYCLOBENZAPRINE HCL 5 MG TABLET PO (22:27)
[2020-06-27] VITALS (13 sets, daily range): BP systolic 112–134; BP diastolic 50–55; PULSE 75–92; RESP 15–20; TEMP 36.3–36.7; O2SAT 90–98
[2020-06-27] MEDS: IPRATROPIUM BR 0.02% INH SOLN 0.5 MG/2.5 ML VIAL INHALATION ×4 (01:17→20:00)
[2020-06-27] MEDS: ALBUTEROL SULFATE NEB 2.5 MG/0.5 ML INH INHALATION ×4 (01:17→20:00)
[2020-06-27 01:38] LABS: Vancomycin Trough 16.4 ug/mL (10.0-20.0)
[2020-06-27 05:51] LABS: Phosphorus 2.7 mg/dL (2.5-4.5)
[2020-06-27 05:54] LABS: Estimated CRCL calculation 151 ml/min; Estimated Glomerular Filt Rate > 60
[2020-06-27 08:00] LABS: Blood Urea Nitrogen 11 mg/dL (9-20); Calcium 8.1 mg/dL (8.4-10.2); Carbon Dioxide > 40 mmol/L (22-30); Chloride 85 mmol/L (98-107); Estimated CRCL calculation 150 ml/min; Estimated Glomerular Filt Rate > 60; Glucose 115 mg/dL (75-110); Potassium 3.3 mmol/L (3.4-5.0); Sodium 135 mmol/L (137-145)
[2020-06-27] MEDS: FUROSEMIDE INJ 100 MG/10 ML VIAL 60 MG IV PUSH ×2 (08:10→17:38)
[2020-06-27] MEDS: rifAXIMin 550 MG TABLET PO ×2 (08:10→20:19)
[2020-06-27] MEDS: FERROUS SULFATE 324 MG TABLET PO ×2 (08:10→17:39)
[2020-06-27] MEDS: PANTOPRAZOLE 40 MG TABLET PO (08:10)
[2020-06-27] MEDS: LACTULOSE 20 GM/30 ML UDC PO ×2 (08:10→17:39)
[2020-06-27] MEDS: ASPIRIN 81 MG CHEWABLE TABLET PO (08:10)
[2020-06-27] MEDS: METOPROLOL TARTRATE 25 MG TABLET PO ×2 (08:13→20:20)
[2020-06-27] MEDS: NICOTINE (*PBKC) 14 MG PATCH 1 PATCH TRANSDERM (08:13)
[2020-06-27] MEDS: APIXABAN 2.5 MG TABLET PO ×2 (08:13→20:19)
[2020-06-27] MEDS: SPIRONOLACTONE 25 MG TABLET PO ×2 (08:14→13:52)
[2020-06-27] MEDS: BISACODYL 10 MG SUPPOSITORY RECTAL (08:59)
--- NOTE | 2020-06-27 09:19 | PM.PNORT ---
Progress Note: A&P Assessment and Plan (1) Fracture, tibia and fibula, proximal: Qualifiers: Encounter type: subsequent encounter Fracture healing: with routine healing Fracture type: closed Laterality: right Qualified Code(s): S82.101D - Unspecified fracture of upper end of right tibia, subsequent encounter for closed fracture with routine healing; S82.831D - Other fracture of upper and lower end of right fibula, subsequent encounter for closed fracture with routine healing Code(s): S82.109A - Unspecified fracture of upper end of unspecified tibia, initial encounter for closed fracture; S82.839A - Other fracture of upper and lower end of unspecified fibula, initial encounter for closed fracture Status: Acute Assessment and Plan: S/p right proximal tibia and fibular fracture. Swelling in the RLE, mild improvement. Unable to palpate pedal pulses at baseline. CK continues to trend down. Plan for CTA of RLE today for evaluation of arterial disease. Continue with knee immobilizer in proper position. Reinforced. Elevate RLE on pillows. Ice. Continue with edema control. Will continue to observe. As previously mentioned, with his arterial status, any incision or operative treatment has high risk of failure, wound problems, infection and ultimately requiring amputation. Encourage and attempt transfers to chair with therapy. Incentive spirometer Subjective Subjective Date/Time Seen: 06/27/20 0845 Awake, alert. Sitting up in bed. No complaints. Review of Systems Constitutional: Constitutional: Denies fever(s) Eyes: Eyes: Denies blurry vision ENT: Reports Normal hearing present Cardiovascular: Cardiovascular: Denies chest pain and Denies dyspnea Respiratory: Respiratory: Denies dyspnea and Denies wheezing Gastrointestinal: Gastrointestinal: Denies abdominal pain Genitourinary: Genitourinary: Denies urinary urgency Musculoskeletal: Musculoskeletal: Reports as per HPI and Reports numbness Integumentary/Breasts: Skin/Breast: Denies changing lesions and Denies sores Neurologic: Reports Normal hearing present, Denies behavioral changes, Denies confusion and Denies convulsions Psychiatric: Psychiatric: Denies behavioral changes, Denies confusion and Denies hallucinations Endocrine: Endocrine: Denies heat intolerance Hematologic/Lymphatic: Hematologic/Lymphatic: Denies easy bleeding Allergic/Immunologic: Allergic/Immunologic: Denies wheezing Exam Const: General: healthy appearing; No in distress or confusion Orientation/consciousness: oriented to person, oriented to place, oriented to time and No confusion HENMT: Head: normal to inspection, normocephalic and atraumatic Eyes: Conjunctivae: conjunctivae normal Sclera: sclerae normal Neck: Neck: supple and nontender Resp: Effort & Inspection: normal respiratory effort and no audible wheezes Cardio: Rate: regular rate Rhythm: regular rhythm Skin: General skin exam: no rashes or lesions noted Neuro: General: oriented to person, oriented to place, oriented to time and No confusion Extrem: Right upper extremity: normal to inspection Left upper extremity: normal to inspection Right lower extremity: edema Details: pitting and 3+, hip/thigh Details: no tenderness, knee Details: swelling Location: of the proximal fibula (Moderate) and of the proximal tibia Details: along the midline (Moderate) and abnormal ROM Details: with range as follows (No active motion knee, ankle, foot or toes); no tenderness, lower leg Details: ecchymosis (Proximal to mid lower leg) and other (Moderate swelling from the knee to the ankle. Small dime-sized skin eschar over the anterior proximal tibia- unable to probe below dermis-improved healing. No erythema. No signs of infection.) and foot Details: edema Location: of the dorsal foot (Moderate), vascular exam Details: abnormal capillary refill Location: of all toes and other (Skin over the foot and toes intact.); do
--- NOTE | 2020-06-27 10:01 | PM.PNCARD ---
Progress Note: A&P Assessment and Plan (1) Elevated troponin: Code(s): R77.8 - Other specified abnormalities of plasma proteins Status: Acute Assessment and Plan: Likely related of rhabdo (2) Rhabdomyolysis: Code(s): M62.82 - Rhabdomyolysis Status: Acute Assessment and Plan: Secondary to fall (3) Wide-complex tachycardia: Code(s): I47.2 - Ventricular tachycardia Status: Acute Assessment and Plan: Continue metoprolol (4) Tobacco abuse: Code(s): Z72.0 - Tobacco use Status: Acute (5) Fracture, tibia and fibula, proximal: Qualifiers: Encounter type: subsequent encounter Fracture healing: with routine healing Fracture type: closed Laterality: right Qualified Code(s): S82.101D - Unspecified fracture of upper end of right tibia, subsequent encounter for closed fracture with routine healing; S82.831D - Other fracture of upper and lower end of right fibula, subsequent encounter for closed fracture with routine healing Code(s): S82.109A - Unspecified fracture of upper end of unspecified tibia, initial encounter for closed fracture; S82.839A - Other fracture of upper and lower end of unspecified fibula, initial encounter for closed fracture Status: Acute Assessment and Plan: Care per Ortho (6) Volume overload: Qualifiers: Hypervolemia type: unspecified Qualified Code(s): E87.70 - Fluid overload, unspecified Code(s): E87.70 - Fluid overload, unspecified Status: Acute Assessment and Plan: Continue furosemide 60 mg IV q.12 hours. He h Follow basic metabolic panel He also is still several liters positive. Getting a lot of fluid in his antibiotics. Additional Plan Plan discussed with Dr. Castellon [id number] 06/27/2020 Subjective Date/time seen: 06/27/20 10:02 Interval history: Follow-up for: Elevated troponin, Wide complex tachycardia, rhabdomyolysis, volume overload Date of service: 06/27/2020 Subjective: Denied chest discomfort, shortness of breath, lightheadedness or palpitations. Continues to have lower extremity and scrotal edema. Review of Systems Constitutional: Constitutional: Denies fatigue, Denies headache(s) and Denies weakness Eyes: Eyes: Denies blurry vision ENT: Reports Normal hearing present, Denies headache(s) and Denies neck pain Cardiovascular: Cardiovascular: Denies chest pain and Reports dyspnea Respiratory: Respiratory: Denies dyspnea Gastrointestinal: Gastrointestinal: Denies abdominal pain Genitourinary: Genitourinary: Denies dysuria and Reports other (Scrotal edema) Musculoskeletal: Musculoskeletal: Denies neck pain Integumentary/Breasts: Skin/Breast: Reports dry skin and Reports unusual bruising Neurologic: Reports Normal hearing present, Denies headache(s) and Denies weakness Psychiatric: Psychiatric: Denies anxiety Endocrine: Endocrine: Denies fatigue Hematologic/Lymphatic: Hematologic/Lymphatic: Denies easy bleeding Allergic/Immunologic: Allergic/Immunologic: Denies GI upset with certain foods Exam Narrative: Exam Narrative: Awake, alert, oriented and no acute distress Const: General: comfortable and no acute distress HENMT: General nose exam: Normal nares present Eyes: Sclera: sclerae normal Neck: Neck: supple and no JVD Resp: Auscultation: clear to auscultation bilaterally Cardio: Rate: regular rate Rhythm: regular rhythm : Other: Scrotal edema noted Urinary Catheter: Urinary Catheter: patent and draining Skin: Other: significant bruising /redness is noted in right lower extremity Neuro: Cranial nerves: Yes Normal hearing present Cognition (Neuro): normal cognition Speech: normal speech Extrem: General: edema and pedal edema Other: left leg amput
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
--- NOTE | 2020-06-27 13:29 | PM.PNPUL ---
Progress Note: A&P Assessment and Plan (1) Acute and chronic respiratory failure with hypercapnia: Code(s): J96.22 - Acute and chronic respiratory failure with hypercapnia Status: Acute Assessment and Plan: - likely due to combination of COPD with narcotics - continue Symbicort 160/4.5 two puffs b.i.d for baseline control; has on fewer wheezes today - may be a candidate for NIV at home, as he has COPD causing his chronic respiratory failure, and has failed to respond to BiPAP. - he says that he is willing to follow up for ongoing care in our pulmonary office. - His primary is Dr. Gaytan who he rarely visits, once every 3 years. (2) Tobacco abuse: Code(s): Z72.0 - Tobacco use Status: Acute Assessment and Plan: - smoked a half pack a day until admission, and smokes marijuana several puffs before bed at night to assist with sleep - recommend edible marijuana; burning vegetation then inhaling is not recommended (3) COPD exacerbation: Code(s): J44.1 - Chronic obstructive pulmonary disease with (acute) exacerbation Status: Acute Assessment and Plan: - contributing to his overall respiratory failure - may be contributing to his hypercapnic respiratory failure, and has not normalized using BiPAP with sleep. Subjective Date/time seen: 06/27/20 13:29 This 59 year old man is seen in follow up for COPD with acute on chronic hypercapnic hypoxemic respiratory failure. He feels better today. Says that he does want to use PAP therapy at night and in the day as needed. He wore bipap last night, said it felt really uncomfortable bam bam bam with each breath, too heavy and hard to tolerate. NIV should feel better, less forceful, and using it will help keep him from decompensating and returning to the hospital as often. He had an abnormal interpretation on his right LE CT, suggestive of air in the subcutaneous tissues, clinically does not have any thing that looks like necrotizing fasciitis, old bruising. Review of Systems Review of Systems: All systems reviewed & are unremarkable except as noted in HPI and below Exam Const: General: cooperative, healthy appearing, comfortable, no acute distress, well developed, alert and awake Orientation/consciousness: patient oriented x3 HENMT: Head: normal to inspection, normocephalic and atraumatic Eyes: General: appearance normal, both eyes and all related structures Neck: Neck: trachea midline and supple Resp: Effort & Inspection: normal respiratory effort and able to speak in complete sentences Auscultation: diminished lung sounds Cardio: Jugular venous distension: no JVD Rate: regular rate Rhythm: regular rhythm Heart sounds: S1 normal heart sound present, S2 normal heart sound present and no murmurs GI: Inspection: Abdominal wall edema Auscultation: normal bowel sounds Skin: Other: scattered echmosis Neuro: General: oriented to person, oriented to place, oriented to time and patient oriented x3 Cognition (Neuro): normal cognition Extrem: Right lower extremity: lower leg (chronic bruising) Details: ecchymosis Left lower extremity: abnormal to inspection (amputation left leg) Psych: Appearance: grossly normal Mental Status: mental status grossly normal Objective Data Vital Signs Vital Signs: Vital Signs - 24 hr 06/26/20 13:38 06/26/20 13:42 06/26/20 13:49 Temperature 36.3 C L Pulse Rate 75 75 72 Respiratory Rate 20 20 20 Blood Pressure 124/69 Pulse Oximetry 95 06/26/20 19:52 06/26/20 20:04 06/26/20 20:15 Temperature Pulse Rate 74 81 Respiratory Rate 16 15 Blood Pressure Pulse Oximetry 69 L 92 97 06/26/20 20:38 06/26/20 20:43 06/26/20 20:49 Temperature 36.7 C Pulse Rate 81 81 Respiratory Ra
[2020-06-27] MEDS: POTASSIUM CHLORIDE 20 MEQ TABLET 40 MEQ PO ×2 (13:51→17:59)
[2020-06-27] MEDS: metOLazone 2.5 MG TABLET PO (13:52)
[2020-06-27] MEDS: ACETAMINOPHEN 325 MG TABLET 650 MG PO (17:58)
[2020-06-27] MEDS: CYCLOBENZAPRINE HCL 5 MG TABLET PO (17:58)
[2020-06-28] VITALS (13 sets, daily range): BP systolic 120–135; BP diastolic 65–67; PULSE 67–86; RESP 16–21; TEMP 36.1–36.7; O2SAT 89–95
[2020-06-28] MEDS: ALBUTEROL SULFATE NEB 2.5 MG/0.5 ML INH INHALATION ×4 (01:43→21:24)
[2020-06-28] MEDS: IPRATROPIUM BR 0.02% INH SOLN 0.5 MG/2.5 ML VIAL INHALATION ×4 (01:43→21:24)
[2020-06-28 05:22] LABS: Ammonia 66 umol/L (9-30)
[2020-06-28 05:33] LABS: Basophils Percent Auto 0.5 % (0.2-1.2); Eosinophils Absolute Auto 0.2 K/mm3 (0-0.3); Eosinophils Percent Auto 3.5 % (0-4.4); Hematocrit 32.1 % (42.0-52.0); Hemoglobin 9.5 g/dL (14.0-18.0); Immature Granulocyte Absolute 0.07 K/mm3 (0.00-0.031); Immature Granulocyte Percent A 1.1 % (0-0.5); Lymphocytes Absolute Auto 0.89 K/mm3 (0.9-3.2); Lymphocytes Percent Auto 13.7 % (18.3-44.2); Mean Corpuscular HGB Conc 29.6 g/dl (32-36); Mean Corpuscular Hemoglobin 28.6 pg (26-34); Mean Corpuscular Volume 96.7 fl (80-100); Mean Platelet Volume 10.5 fl (7.4-10.4); Monocytes Absolute Auto 0.6 K/mm3 (0.1-0.6); Monocytes Percent Auto 8.9 % (2.6-8.5); Neutrophils Absolute Auto 4.7 K/mm3 (1.3-6.7); Neutrophils Percent Auto 72.3 % (45.5-73.1); Platelet Count Result 207 k/mm3 (150-375); Red Blood Count 3.32 M/mm3 (4.6-6.20); Red Cell Distribution Width 16.3 % (11.5-14.5); White Blood Count 6.5 K/mm3 (4.5-10.0)
[2020-06-28 05:42] LABS: Alanine Aminotransferase 36 U/L (4-50); Albumin Level 2.8 g/dL (3.5-5.1); Alkaline Phosphatase 139 U/L (38-126); Aspartate Amino Transferase 68 U/L (17-59); Bilirubin,Total 1.6 mg/dL (0.2-1.3); Blood Urea Nitrogen 10 mg/dL (9-20); Calcium 8.3 mg/dL (8.4-10.2); Carbon Dioxide > 40 mmol/L (22-30); Chloride 79 mmol/L (98-107); Creatine Kinase 576 U/L (55-170); Estimated CRCL calculation 175 ml/min; Estimated Glomerular Filt Rate > 60; Glucose 150 mg/dL (75-110); Magnesium 1.9 mg/dL (1.6-2.3); Phosphorus 2.3 mg/dL (2.5-4.5); Potassium 3.5 mmol/L (3.4-5.0); Sodium 132 mmol/L (137-145)
[2020-06-28 06:13] LABS: Hypochromasia 1+ (NORMAL); Large Platelets Present; Platelet Estimate Adequate (Adequate); Stomatocytes 1+ (NORMAL)
[2020-06-28] MEDS: ASPIRIN 81 MG CHEWABLE TABLET PO (08:31)
[2020-06-28] MEDS: FERROUS SULFATE 324 MG TABLET PO ×2 (08:31→17:24)
[2020-06-28] MEDS: APIXABAN 2.5 MG TABLET PO ×2 (08:31→20:00)
[2020-06-28] MEDS: rifAXIMin 550 MG TABLET PO ×2 (08:31→20:00)
[2020-06-28] MEDS: METOPROLOL TARTRATE 25 MG TABLET PO ×2 (08:31→20:00)
[2020-06-28] MEDS: SPIRONOLACTONE 50 MG TABLET PO (08:32)
[2020-06-28] MEDS: FUROSEMIDE INJ 100 MG/10 ML VIAL 60 MG IV PUSH ×2 (08:32→17:23)
[2020-06-28] MEDS: PANTOPRAZOLE 40 MG TABLET PO (08:32)
[2020-06-28] MEDS: NICOTINE (*PBKC) 14 MG PATCH 1 PATCH TRANSDERM (08:32)
[2020-06-28] MEDS: LACTULOSE 20 GM/30 ML UDC PO ×2 (08:34→17:23)
[2020-06-28] MEDS: DIPHENHYDRAMINE 1%/ZINC 0.1% CREAM 30 GM TUBE 1 APPLIC TOPICAL (08:35)
--- NOTE | 2020-06-28 10:17 | PM.PNORT ---
Progress Note: A&P Assessment and Plan (1) Fracture, tibia and fibula, proximal: Qualifiers: Encounter type: subsequent encounter Fracture healing: with routine healing Fracture type: closed Laterality: right Qualified Code(s): S82.101D - Unspecified fracture of upper end of right tibia, subsequent encounter for closed fracture with routine healing; S82.831D - Other fracture of upper and lower end of right fibula, subsequent encounter for closed fracture with routine healing Code(s): S82.109A - Unspecified fracture of upper end of unspecified tibia, initial encounter for closed fracture; S82.839A - Other fracture of upper and lower end of unspecified fibula, initial encounter for closed fracture Status: Acute Assessment and Plan: 2 weeks s/p right proximal tibia and fibular fracture. Swelling in the RLE, mild improvement. Unable to palpate pedal pulses at baseline. CK continues to trend down. CTA of the RLE performed yesterday. Results reveal moderate stenosis of right common femoral artery, moderate stenosis of proximal and mid right superficial femoral artery and total occlusion of distal right superficial femoral artery with reconstitution in above-knee popliteal artery. Total occlusion of the proximal right anterior tibial artery with reconstitution. Results discussed with attending physician Dr. Malloy as well as hospitalist team. Vascular surgeon, Dr. Go, who patient has seen in the past notified by medicine team. Plan for follow up as an outpatient and no immediate intervention unless emergent indication. CTA also reveals soft tissue gas in the right jones musculature which was also seen on tib/fib CT from 06/18. CK trending down. Skin with wrinkling. Improvement in swelling. Will continue to observe. As previously mentioned, with his arterial status, any incision or operative treatment has high risk of failure, wound problems, infection and ultimately requiring amputation. Radiographs obtained today, fracture maintaining position. No evidence of healing at this time. Continue with knee immobilizer in proper position. Reinforced need for proper positioning with nursing and PT. Elevate RLE on pillows. Ice. Continue with edema control. Patient will need leg motion picture set worker adaptive device to be put onto his wheelchair, care coordination/PT aware. RLE will need to remain in knee immobilizer when in bed, OOB to wheelchair. May remove to readjust to proper position and perform skin checks. Dispo: Acute Rehab for assistance with transferring/strengthening when medically stable. Follow up appointment arrange. Subjective Subjective Date/Time Seen: 06/28/20 10:17 No new complaints. Feeling well. Agreeable to rehab upon discharge when medically stable. States his brother is working on getting him a lift chair when he is discharge home for transferring. Review of Systems Constitutional: Constitutional: Denies fever(s) Eyes: Eyes: Denies blurry vision ENT: Reports Normal hearing present Cardiovascular: Cardiovascular: Denies chest pain and Denies dyspnea Respiratory: Respiratory: Denies dyspnea and Denies wheezing Gastrointestinal: Gastrointestinal: Denies abdominal pain Genitourinary: Genitourinary: Denies urinary urgency Musculoskeletal: Musculoskeletal: Reports as per HPI and Reports numbness Integumentary/Breasts: Skin/Breast: Denies changing lesions and Denies sores Neurologic: Reports Normal hearing present, Denies behavioral changes, Denies confusion and Denies convulsions Psychiatric: Psychiatric: Denies behavioral changes, Denies confusion and Denies hallucinations Endocrine: Endocrine: Denies heat intolerance Hematologic/Lymphatic: Hematologic/Lymphatic: Denies easy bleeding Allergic/Immunologic: Allergic/Immunologic: Denies wheezing Exam Const: General: healthy appearing; No in distress or confusion Orientation/consciousness: oriented to person, oriented to place, oriented to time
--- NOTE | 2020-06-28 10:44 | PM.PNCARD ---
Progress Note: A&P Assessment and Plan (1) Elevated troponin: Code(s): R77.8 - Other specified abnormalities of plasma proteins Status: Acute Assessment and Plan: Likely related of rhabdo. No ischemic symptoms. (2) Rhabdomyolysis: Code(s): M62.82 - Rhabdomyolysis Status: Acute Assessment and Plan: Secondary to fall. Continues to resolve. (3) Wide-complex tachycardia: Code(s): I47.2 - Ventricular tachycardia Status: Acute Assessment and Plan: Continue metoprolol (4) Tobacco abuse: Code(s): Z72.0 - Tobacco use Status: Acute (5) Fracture, tibia and fibula, proximal: Qualifiers: Encounter type: subsequent encounter Fracture healing: with routine healing Fracture type: closed Laterality: right Qualified Code(s): S82.101D - Unspecified fracture of upper end of right tibia, subsequent encounter for closed fracture with routine healing; S82.831D - Other fracture of upper and lower end of right fibula, subsequent encounter for closed fracture with routine healing Code(s): S82.109A - Unspecified fracture of upper end of unspecified tibia, initial encounter for closed fracture; S82.839A - Other fracture of upper and lower end of unspecified fibula, initial encounter for closed fracture Status: Acute Assessment and Plan: Care per Ortho (6) Volume overload: Qualifiers: Hypervolemia type: unspecified Qualified Code(s): E87.70 - Fluid overload, unspecified Code(s): E87.70 - Fluid overload, unspecified Status: Acute Assessment and Plan: Continue furosemide 60 mg IV q.12 hours for another 24 hours. Diuresed well yesterday. Follow basic metabolic panel Getting a lot of fluid in his antibiotics. Additional Plan Plan discussed with Dr Torres 1055 06/28/2020 Subjective Date/time seen: 06/28/20 10:44 Interval history: Follow-up for: Elevated troponin, Wide complex tachycardia, rhabdomyolysis, volume overload Date of service: 06/27/2020 Subjective: No chest discomfort, shortness of breath, lightheadedness or palpitations. Scrotal edema slightly better. Still would like more fluid off. Review of Systems Constitutional: Constitutional: Denies fatigue, Denies headache(s) and Denies weakness Eyes: Eyes: Denies blurry vision ENT: Reports Normal hearing present, Denies headache(s) and Denies neck pain Cardiovascular: Cardiovascular: Denies chest pain and Denies dyspnea Respiratory: Respiratory: Denies dyspnea Gastrointestinal: Gastrointestinal: Denies abdominal pain Genitourinary: Genitourinary: Denies dysuria and Reports other (Scrotal edema) Musculoskeletal: Musculoskeletal: Reports muscle weakness (Upper body) and Denies neck pain Integumentary/Breasts: Skin/Breast: Reports dry skin and Reports unusual bruising Neurologic: Reports Normal hearing present, Denies headache(s) and Denies weakness Psychiatric: Psychiatric: Denies anxiety Endocrine: Endocrine: Denies fatigue Hematologic/Lymphatic: Hematologic/Lymphatic: Denies easy bleeding Allergic/Immunologic: Allergic/Immunologic: Denies GI upset with certain foods Exam Narrative: Exam Narrative: Awake and alert. Laying flat in bed. No distress. Const: General: comfortable and no acute distress HENMT: General nose exam: Normal nares present Eyes: Sclera: sclerae normal Neck: Neck: supple and no JVD Resp: Auscultation: clear to auscultation bilaterally Cardio: Rate: regular rate Rhythm: regular rhythm : Other: Scrotal edema improved Urinary Catheter: Urinary Catheter: patent and draining Skin: Rashes: rashes noted Other: significant bruising /redness is noted in right lower extremity Neuro: Cranial nerves: Yes Normal hearing present Cog
[2020-06-28] MEDS: CYCLOBENZAPRINE HCL 5 MG TABLET PO ×2 (13:39→21:31)
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
[2020-06-28 18:19] LABS: SARS-CoV-2 RNA PCR Negative
[2020-06-28] MEDS: ACETAMINOPHEN 325 MG TABLET 650 MG PO (21:31)
[2020-06-29] VITALS (16 sets, daily range): BP systolic 106–132; BP diastolic 53–57; PULSE 73–88; RESP 16–20; TEMP 36.4–36.8; O2SAT 90–97
[2020-06-29] MEDS: ALBUTEROL SULFATE NEB 2.5 MG/0.5 ML INH INHALATION ×3 (02:29→20:17)
[2020-06-29] MEDS: IPRATROPIUM BR 0.02% INH SOLN 0.5 MG/2.5 ML VIAL INHALATION ×3 (02:29→20:18)
[2020-06-29 06:14] LABS: Hematocrit 34.5 % (42.0-52.0); Hemoglobin 10.2 g/dL (14.0-18.0); Mean Corpuscular HGB Conc 29.6 g/dl (32-36); Mean Corpuscular Hemoglobin 28.5 pg (26-34); Mean Corpuscular Volume 96.4 fl (80-100); Mean Platelet Volume 10.6 fl (7.4-10.4); Platelet Count Result 209 k/mm3 (150-375); Red Blood Count 3.58 M/mm3 (4.6-6.20); Red Cell Distribution Width 16.9 % (11.5-14.5); White Blood Count 5.9 K/mm3 (4.5-10.0)
[2020-06-29 06:36] LABS: Alanine Aminotransferase 32 U/L (4-50); Albumin Level 2.7 g/dL (3.5-5.1); Alkaline Phosphatase 131 U/L (38-126); Aspartate Amino Transferase 68 U/L (17-59); Bilirubin,Total 1.5 mg/dL (0.2-1.3); Blood Urea Nitrogen 10 mg/dL (9-20); Calcium 8.3 mg/dL (8.4-10.2); Carbon Dioxide > 40 mmol/L (22-30); Chloride 80 mmol/L (98-107); Estimated CRCL calculation 175 ml/min; Estimated Glomerular Filt Rate > 60; Glucose 108 mg/dL (75-110); Magnesium 1.8 mg/dL (1.6-2.3); Phosphorus 3.2 mg/dL (2.5-4.5); Sodium 134 mmol/L (137-145)
[2020-06-29 06:46] LABS: Atypical Lymphocytes Present; Band Neutrophils Percent 4 % (0-6); Eosinophils Absolute Manual 0.29 K/mm3 (0.02-0.5); Eosinophils Percent Manual 5 % (0-4); Lymphocytes Absolute Manual 0.41 K/mm3 (1.1-4.5); Monocytes Absolute Manual 0.17 K/mm3 (0.1-0.90); Monocytes Percent Manual 3 % (3-9); Neutrophils Absolute Manual 5.01 K/mm3 (1.3-6.7); Neutrophils Percent Manual 81 % (46-73); Platelet Estimate Adequate (Adequate); Total Cells Counted 100
[2020-06-29 06:47] LABS: Anisocytosis 1+ (NORMAL); Hypochromasia 1+ (NORMAL)
[2020-06-29] MEDS: ASPIRIN 81 MG CHEWABLE TABLET PO (08:06)
[2020-06-29] MEDS: LACTULOSE 20 GM/30 ML UDC PO ×2 (08:06→16:18)
[2020-06-29] MEDS: METOPROLOL TARTRATE 25 MG TABLET PO ×2 (08:06→20:14)
[2020-06-29] MEDS: SPIRONOLACTONE 50 MG TABLET PO (08:06)
[2020-06-29] MEDS: FUROSEMIDE INJ 100 MG/10 ML VIAL 60 MG IV PUSH ×2 (08:06→16:20)
[2020-06-29] MEDS: NICOTINE (*PBKC) 14 MG PATCH 1 PATCH TRANSDERM (08:06)
[2020-06-29] MEDS: PANTOPRAZOLE 40 MG TABLET PO (08:06)
[2020-06-29] MEDS: FERROUS SULFATE 324 MG TABLET PO ×2 (08:06→16:18)
[2020-06-29] MEDS: rifAXIMin 550 MG TABLET PO ×2 (08:06→20:13)
[2020-06-29] MEDS: APIXABAN 2.5 MG TABLET PO ×2 (08:06→20:13)
[2020-06-29] MEDS: BISACODYL 10 MG SUPPOSITORY RECTAL (08:15)
--- NOTE | 2020-06-29 11:34 | PM.PNORT ---
Progress Note: A&P Assessment and Plan (1) Fracture, tibia and fibula, proximal: Qualifiers: Encounter type: subsequent encounter Fracture healing: with routine healing Fracture type: closed Laterality: right Qualified Code(s): S82.101D - Unspecified fracture of upper end of right tibia, subsequent encounter for closed fracture with routine healing; S82.831D - Other fracture of upper and lower end of right fibula, subsequent encounter for closed fracture with routine healing Code(s): S82.109A - Unspecified fracture of upper end of unspecified tibia, initial encounter for closed fracture; S82.839A - Other fracture of upper and lower end of unspecified fibula, initial encounter for closed fracture Status: Acute Assessment and Plan: 2 weeks s/p right proximal tibia and fibular fracture. Swelling in the RLE, mild improvement. Unable to palpate pedal pulses at baseline. CK continues to trend down. CTA Results reveal moderate stenosis of right common femoral artery, moderate stenosis of proximal and mid right superficial femoral artery and total occlusion of distal right superficial femoral artery with reconstitution in above-knee popliteal artery. Total occlusion of the proximal right anterior tibial artery with reconstitution. Results discussed with a hospitalist team. Vascular surgeon, Dr. Go, who patient has seen in the past notified by medicine team. Plan for follow up as an outpatient and no immediate intervention unless emergent indication. Radiographs obtained yesterday, fracture maintaining position. No evidence of healing at this time. Continue with knee immobilizer in proper position. Reinforced need for proper positioning with nursing and PT. Elevate RLE on pillows. Ice. Continue with edema control. Dispo: Acute Rehab for assistance with transferring/strengthening when medically stable. Follow up appointment arrange. Subjective Subjective Date/Time Seen: 06/29/20 11:34 No new complaints. Patient resting comfortably. Exam Const: General: healthy appearing; No in distress or confusion Orientation/consciousness: oriented to person, oriented to place, oriented to time and No confusion HENMT: Head: normal to inspection, normocephalic and atraumatic Eyes: Conjunctivae: conjunctivae normal Sclera: sclerae normal Neck: Neck: supple and nontender Resp: Effort & Inspection: normal respiratory effort and no audible wheezes Cardio: Rate: regular rate Rhythm: regular rhythm Skin: General skin exam: no rashes or lesions noted Neuro: General: oriented to person, oriented to place, oriented to time and No confusion Extrem: Right upper extremity: normal to inspection Left upper extremity: normal to inspection Right lower extremity: edema Details: pitting and 3+, hip/thigh Details: no tenderness, knee Details: swelling Location: of the proximal fibula (Moderate) and of the proximal tibia Details: along the midline (Moderate) and abnormal ROM Details: with range as follows (No active motion knee, ankle, foot or toes); no tenderness, lower leg Details: ecchymosis (Proximal to mid lower leg) and other (Moderate swelling from the knee to the ankle. Small dime-sized skin eschar over the anterior proximal tibia- unable to probe below dermis-improved healing. No erythema. No signs of infection.) and foot Details: edema Location: of the dorsal foot (Moderate), vascular exam Details: abnormal capillary refill Location: of all toes and other (Skin over the foot and toes intact.); dorsalis pedis pulse absent and posterior tibial pulse absent and motor-sensory exam Details: light-touch abnormal Location: in all toes; no tenderness Left lower extremity: hip/thigh (Above knee amputation with well-healed incision. No erythema. Muscle soft) Details: no tenderness Other: Right lower leg with improvement in swelling. Knee immobilizer repositioned again. Small scab of anterior aspect of the mid tibia, no drainage. Skin le
[2020-06-29] MEDS: POTASSIUM CHLORIDE 20 MEQ TABLET 40 MEQ PO (12:50)
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
--- NOTE | 2020-06-29 15:22 | PM.PNCARD ---
Progress Note: A&P Assessment and Plan (1) Elevated troponin: Code(s): R77.8 - Other specified abnormalities of plasma proteins Status: Acute Assessment and Plan: Likely related of rhabdo. No ischemic symptoms. (2) Rhabdomyolysis: Code(s): M62.82 - Rhabdomyolysis Status: Acute Assessment and Plan: Secondary to fall. Continues to resolve. (3) Wide-complex tachycardia: Code(s): I47.2 - Ventricular tachycardia Status: Acute Assessment and Plan: Continue metoprolol (4) Tobacco abuse: Code(s): Z72.0 - Tobacco use Status: Acute Assessment and Plan: smoking cessation discussed (5) Fracture, tibia and fibula, proximal: Qualifiers: Encounter type: subsequent encounter Fracture healing: with routine healing Fracture type: closed Laterality: right Qualified Code(s): S82.101D - Unspecified fracture of upper end of right tibia, subsequent encounter for closed fracture with routine healing; S82.831D - Other fracture of upper and lower end of right fibula, subsequent encounter for closed fracture with routine healing Code(s): S82.109A - Unspecified fracture of upper end of unspecified tibia, initial encounter for closed fracture; S82.839A - Other fracture of upper and lower end of unspecified fibula, initial encounter for closed fracture Status: Acute Assessment and Plan: Care per Ortho (6) Volume overload: Qualifiers: Hypervolemia type: unspecified Qualified Code(s): E87.70 - Fluid overload, unspecified Code(s): E87.70 - Fluid overload, unspecified Status: Acute Assessment and Plan: Diuresing well. Transition to PO diuretics tomorrow. Cumulative intake and output now almost even. Follow basic metabolic panel. Supplement potassium. Additional Plan No further cardiac recommendations. Cardiology will sign off. Please do not hesitate to call if we can be of further assistance Plan discussed with Dr Torres 1530 06/29/2020 Subjective Date/time seen: 06/29/20 15:22 Interval history: Follow-up for: Elevated troponin, Wide complex tachycardia, rhabdomyolysis, volume overload Date of service: 06/29/2020 Subjective: Feeling well. Denies chest discomfort, shortness of breath, lightheadedness or palpitations. Scrotum almost back to normal. Less right leg edema too. Review of Systems Constitutional: Constitutional: Denies fatigue, Denies headache(s) and Denies weakness Eyes: Eyes: Denies blurry vision ENT: Reports Normal hearing present, Denies headache(s) and Denies neck pain Cardiovascular: Cardiovascular: Denies chest pain and Denies dyspnea Respiratory: Respiratory: Denies dyspnea Gastrointestinal: Gastrointestinal: Denies abdominal pain Genitourinary: Genitourinary: Denies dysuria and Reports other (Scrotal edema) Musculoskeletal: Musculoskeletal: Reports muscle weakness (Upper body) and Denies neck pain Integumentary/Breasts: Skin/Breast: Reports dry skin and Reports unusual bruising Neurologic: Reports Normal hearing present, Denies headache(s) and Denies weakness Psychiatric: Psychiatric: Denies anxiety Endocrine: Endocrine: Denies fatigue Hematologic/Lymphatic: Hematologic/Lymphatic: Denies easy bleeding Allergic/Immunologic: Allergic/Immunologic: Denies GI upset with certain foods Exam Narrative: Exam Narrative: Awake and alert. Sitting up in bed. Const: General: comfortable and no acute distress HENMT: General nose exam: Normal nares present Eyes: Sclera: sclerae normal Neck: Neck: supple Resp: Auscultation: clear to auscultation bilaterally Cardio: Rate: regular rate Rhythm: regular rhythm : Other: Scrotal edema resolved Urinary Catheter: U
[2020-06-29] MEDS: POTASSIUM CHLORIDE 20 MEQ PACKET (FOR LIQUID) 40 MEQ PO (16:16)
[2020-06-29] MEDS: ATORVASTATIN 20 MG TABLET PO (16:16)
[2020-06-29] MEDS: SALINE 0.65% NAS SOLN 44 ML BTL 1 SPRAY NASAL (16:21)
[2020-06-29] MEDS: ACETAMINOPHEN 325 MG TABLET 650 MG PO (20:13)
[2020-06-29] MEDS: CYCLOBENZAPRINE HCL 5 MG TABLET PO (20:13)
[2020-06-30] VITALS (15 sets, daily range): BP systolic 128–142; BP diastolic 51–89; PULSE 71–84; RESP 16–20; TEMP 36.4–37; O2SAT 93–98
[2020-06-30] MEDS: ALBUTEROL SULFATE NEB 2.5 MG/0.5 ML INH INHALATION ×4 (02:18→20:37)
[2020-06-30] MEDS: IPRATROPIUM BR 0.02% INH SOLN 0.5 MG/2.5 ML VIAL INHALATION ×4 (02:18→20:37)
[2020-06-30 06:47] LABS: Blood Urea Nitrogen 9 mg/dL (9-20); Calcium 8.6 mg/dL (8.4-10.2); Carbon Dioxide > 40 mmol/L (22-30); Chloride 85 mmol/L (98-107); Estimated CRCL calculation 146 ml/min; Estimated Glomerular Filt Rate > 60; Glucose 110 mg/dL (75-110); Potassium 3.6 mmol/L (3.4-5.0); Sodium 135 mmol/L (137-145)
[2020-06-30] MEDS: ASPIRIN 81 MG CHEWABLE TABLET PO (09:01)
[2020-06-30] MEDS: SPIRONOLACTONE 50 MG TABLET PO (09:01)
[2020-06-30] MEDS: FERROUS SULFATE 324 MG TABLET PO ×2 (09:01→16:31)
[2020-06-30] MEDS: FUROSEMIDE 40 MG TABLET PO (09:01)
[2020-06-30] MEDS: PANTOPRAZOLE 40 MG TABLET PO (09:01)
[2020-06-30] MEDS: rifAXIMin 550 MG TABLET PO ×2 (09:01→21:02)
[2020-06-30] MEDS: APIXABAN 2.5 MG TABLET PO ×2 (09:01→21:02)
[2020-06-30] MEDS: METOPROLOL TARTRATE 25 MG TABLET PO ×2 (09:02→21:02)
[2020-06-30] MEDS: LACTULOSE 20 GM/30 ML UDC PO ×2 (09:03→16:31)
[2020-06-30] MEDS: NICOTINE (*PBKC) 14 MG PATCH 1 PATCH TRANSDERM (09:04)
[2020-06-30] MEDS: SALINE 0.65% NAS SOLN 44 ML BTL 1 SPRAY NASAL (09:06)
[2020-06-30] MEDS: ATORVASTATIN 20 MG TABLET PO (10:16)
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
--- NOTE | 2020-06-30 13:05 | PCDIET ---
Nutrition Consult for Weight Loss Complete: Pt is 287lbs and would like to be 220lbs, which he states he was two years ago. He does do his own shopping and cooking. He eats twinkies for breakfast, cheese its and regular sugar sweetened tea throughout the day and then will do corn, pork at dinner. Does not eat many veggies. Educated on regular meal timing, limiting sugar, adding veggies he likes, protein at all meals, and avoiding desserts for breakfast including only limited quantities in the afternoon or evening. Explored alternative breakfast: eggs, sausage fruit or raisin bran. Pt likes carrots, broccoli and will add to afternoon and evening meals. Pt will snack on lower salt cheese, deli meat, and fruit vs cheese its.
[2020-06-30] MEDS: ACETAMINOPHEN 325 MG TABLET 650 MG PO (21:02)
[2020-06-30] MEDS: CYCLOBENZAPRINE HCL 5 MG TABLET PO (21:03)
[2020-07-01 01:43] VITALS: PULSE 80; RESP 20
[2020-07-01] MEDS: ALBUTEROL SULFATE NEB 2.5 MG/0.5 ML INH INHALATION (01:43)
[2020-07-01] MEDS: IPRATROPIUM BR 0.02% INH SOLN 0.5 MG/2.5 ML VIAL INHALATION (01:43)
== END 2020-07-01 02:15 | DRG 562 ==
LOC: ANHED 16:07 → ANHIMU 21:20 → ANH2MED 06-18 21:53
PROVIDERS: Emergency Medicine; Family Medicine; Student in an Organized Health Care Education/Training Program; Admitting Provider Internal Medicine; Emergency Provider Emergency Medicine; PCP Family Medicine; Visit Provider Internal Medicine
DX: S82.191A Other fracture of upper end of right tibia, initial encounter for closed fracture (principal); J18.9 Pneumonia, unspecified organism; G82.20 Paraplegia, unspecified; J44.1 Chronic obstructive pulmonary disease with (acute) exacerbation; K76.6 Portal hypertension; E87.1 Hypo-osmolality and hyponatremia; I47.2 Ventricular tachycardia; J44.0 Chronic obstructive pulmonary disease with (acute) lower respiratory infection; Z68.42 Body mass index [BMI] 45.0-49.9, adult; S82.491A Other fracture of shaft of right fibula, initial encounter for closed fracture; W05.0XXA Fall from non-moving wheelchair, initial encounter; Y93.9 Activity, unspecified; Y92.9 Unspecified place or not applicable; Y99.9 Unspecified external cause status; R77.8 Other specified abnormalities of plasma proteins; M81.0 Age-related osteoporosis without current pathological fracture; Z23 Encounter for immunization; Z98.1 Arthrodesis status; Z99.3 Dependence on wheelchair; F17.210 Nicotine dependence, cigarettes, uncomplicated; Z20.828 Contact with and (suspected) exposure to other viral communicable diseases; I73.9 Peripheral vascular disease, unspecified; M89.9 Disorder of bone, unspecified; D64.9 Anemia, unspecified; D69.6 Thrombocytopenia, unspecified; R73.9 Hyperglycemia, unspecified; R79.89 Other specified abnormal findings of blood chemistry; B95.8 Unspecified staphylococcus as the cause of diseases classified elsewhere; K74.60 Unspecified cirrhosis of liver; I71.4 Abdominal aortic aneurysm, without rupture; R16.1 Splenomegaly, not elsewhere classified; T79.6XXA Traumatic ischemia of muscle, initial encounter; E87.70 Fluid overload, unspecified
CPT/HCPCS: 36415; 36600; 71045; 71046; 71275; 73521; 73562; 73564; 73590; 73700; 73706; 74178; 76705; 77075; 80048; 80053; 80061; 80069; 80076; 80202; 81001; 82104; 82140; 82248; 82274; 82375; 82390; 82550; 82565; 82607; 82728; 82746; 82805; 83036; 83050; 83520; 83540; 83550; 83605; 83735; 83880; 84100; 84153; 84443; 84484; 85025; 85027; 85055; 85610; 85730; 86038; 86140; 86704; 86705; 86706; 86709; 86803; 87040; 87077; 87086; 87088; 87186; 87340; 87522; 87635; 87804; 90471; 90653; 93005; 93922; 93971; 94002; 94003; 94640; 94660; 94762; 97110; 97161; 97165; 97530; 97535; 99285; A9270; C8929; C9803; G0008; G0378; J0692; J0696; J1815; J1940; J3370; J7030; J7050; J7060; Q9957; Q9967; U0003